=== PATIENT | female | born 1930 | race Caucasian/White ===

== ENCOUNTER 2016-08-21 13:25 | Inpatient (IN) | payer MEDICARE, OTHER ==
[2016-08-21] MEDS ORDERED: Oxycodone/Acetaminophen 5/325 mg Tab PO STA ×2 (14:08→18:53)
[2016-08-21] MEDS ORDERED: Oxycodone/Acetaminophen 5/325 mg Tab ONE ×2 (14:41→17:35)
[2016-08-21 14:49] LABS: VENOUS BLOOD GAS BASE EXCESS -2.8 mmol/L (0.0-2.0); VENOUS BLOOD GAS PCO2 37 mmHg (40-60); VENOUS BLOOD GAS PO2 32 mm/Hg (30-55); VENOUS BLOOD PH 7.38 (7.32-7.43)
[2016-08-21 14:50] LABS: BASO % 0.4 % (0.0-2.0); EOS % 0.4 % (0.0-4.0); LYMPH # 1.2 K/uL (1.0-4.3); LYMPH % 11.5 % (20.0-40.0); MEAN CELL VOLUME 79.3 fL (81.0-99.0); MEAN CORPUSCULAR HGB CONC 31.5 g/dL (33.0-37.0); MEAN PLATELET VOLUME 8.2 fL (7.2-11.7); MONO # 0.6 K/uL (0.0-0.8); MONO % 5.5 % (0.0-10.0); NEUT # 8.8 K/uL (1.8-7.0); NEUT % 82.2 % (50.0-75.0); RBC 5.2 Mil/uL (3.80-5.20); RED CELL DISTRIBUTION WIDTH 13.9 % (11.5-14.5); WHITE BLOOD COUNT 10.7 K/uL (4.8-10.8)
[2016-08-21] MEDS ORDERED: Potassium Chloride 20 mEq/15 ml LIQ UD PO STA (15:00)
[2016-08-21 15:03] LABS: PROTHROMBIN TIME 11.6 SECONDS (9.7-12.2)
[2016-08-21] MEDS ORDERED: Potassium Chloride 20 mEq ER Tab PO ONE (15:08)
[2016-08-21 15:13] LABS: ALBUMIN 4.2 g/dL (3.5-5.0)
[2016-08-21 15:16] LABS: AST/SGOT 23 U/L (14-36); GFR AFRICAN-AMERICAN > 60; GFR NON-AFRICAN AMERICAN > 60
[2016-08-21 15:17] LABS: ALT/SGPT 25 U/L (9-52); BLOOD UREA NITROGEN 15 mg/dL (7-17); CALCIUM 9.4 mg/dl (8.6-10.4); LIPASE 62 U/L (23-300)
[2016-08-21 15:41] LABS: ALB/GLOB RATIO 1.1 (1.0-2.1)
[2016-08-21 15:53] LABS: SQUAMOUS EPITHIAL < 1 /hpf (0-5); URINE BILIRUBIN NEGATIVE (NEGATIVE); URINE BLOOD NEGATIVE (NEGATIVE); URINE CLARITY Clear (Clear); URINE COLOR Yellow (YELLOW); URINE GLUCOSE (UA) NORMAL (Normal); URINE LEUKOCYTE ESTERASE NEG Leu/uL (Negative); URINE NITRATE NEGATIVE (NEGATIVE); URINE PROTEIN NEGATIVE (NEGATIVE); URINE UROBILINOGEN NORMAL mg/dL (0.2-1.0)
[2016-08-21] MEDS ORDERED: Iodixanol 320 MG/ML 100 ML BOTTLE IV ONE (16:19)
--- NOTE | 2016-08-21 17:03 | C.PDOC ---
History Of Present Illness Patient is an 86 year old female who presents to the ER with a complaint of worsening back pain radiating to the right leg; associated with vague abdominal pain. Patient report taking many unknown medications for her symptoms. Denies weakness, numbness or urinary symptoms. Time Seen by Provider: 08/21/16 13:45 Chief Complaint (Nursing): Back Pain History Per: Patient History/Exam Limitations: no limitations Onset/Duration Of Symptoms: Hrs Current Symptoms Are (Timing): Still Present Quality Of Discomfort: Unable To Describe Associated Symptoms: denies: Incontinence, New Weakness, New Numbness Recent travel outside of the [place]: No Past Medical History Reviewed: Historical Data, Nursing Documentation, Vital Signs Vital Signs: Last Vital Signs Temp 97.4 F L 08/21/16 19:18 Pulse 53 L 08/21/16 19:18 Resp 20 08/21/16 19:18 BP 169/82 H 08/21/16 19:18 Pulse Ox 98 08/21/16 20:13 - Medical History PMH: Arthritis, HTN Other PMH: spinal stenosis, pancreatic mass Surgical History: No Surg Hx Family History: States: Unknown Family Hx - Social History Hx Alcohol Use: No Hx Substance Use: No - Immunization History Hx Tetanus Toxoid Vaccination: No Hx Influenza Vaccination: Yes Hx Pneumococcal Vaccination: No Review Of Systems Gastrointestinal: Positive for: Abdominal Pain (Vague) Genitourinary: Negative for: Dysuria, Frequency, Incontinence, Hematuria Musculoskeletal: Positive for: Back Pain, Leg Pain (Right, radiating from back) Neurological: Negative for: Weakness, Numbness Physical Exam - Physical Exam Appears: Non-toxic, Other (Moderate Distress) Skin: Normal Color, Warm, Dry Head: Atraumatic, Normacephalic Oral Mucosa: Moist Chest: Symmetrical, No Tenderness Cardiovascular: Rhythm Regular, No Murmur Respiratory: Normal Breath Sounds, No Rales, No Rhonchi, No Wheezing Gastrointestinal/Abdominal: Soft, No Tenderness, Other (Obese) Neurological/Psych: Oriented x3, Normal Speech, Normal Cognition ED Course And Treatment - Laboratory Results Result Diagrams: 08/21/16 14:38 08/21/16 14:40 Lab Interpretation: Normal (ua neg) ECG: Interpreted By Me ECG Rhythm: Atrial Fibrillation ECG Interpretation: Normal Rate From EC O2 Sat by Pulse Oximetry: 98 (Room air) Pulse Ox Interpretation: Normal - Radiology CXR: Interpreted by Me CXR Interpretation: Yes: No Acute Disease, Other (? mild chf) - CT Scan/US CT abd/pel w/o contrast Other Rad Studies (CT/US): Read By Radiologist, Radiology Report Reviewed CT/US Interpretation: IMPRESSION: 1. No acute findings. No abdominal aortic aneurysm. 2.Advanced degenerative disc disease with multilevel foraminal stenosis in the lumbar spine. 3. Multiple pancreatic cysts. Differential diagnostic considerations include pseudocyst, simple. epithelial cysts, intra- papillary ductal neoplasm and mucinous cystadenoma. 4. A Dilated common bile duct and mild central intrahepatic ductal dilatation which may be related to. previous cholecystectomy. 5. Bilateral renal cysts. 6. Parastomal hernia and spigelian hernia. No findings to suggest strangulation. 7. 2 low-density liver lesions. One is a simple cyst and the smaller lesion in the left lobe is too small to. characterize fully. 8. Hepatomegaly. 9. Hiatal hernia Progress Note: CT abd/pel w/o contrast, EKG and CXR ordered. Trandate, percocet and potassium administered. Reevaluation Time: 21:04 Reassessment Condition: Improved - Physician Consult Information Outcome Of Conversation: 1700 and 2000: d/w Dr. Bullard to obs pt for back pain and ? pancreatic lesions, asks to adm to Dr. Samano 2000: d/w mickie Mackey to Med Surg Medical Decision Making Medical Decision Making: acute on chronic lower back pain c/w Spinal Stenosis and seen on CT Abd/Pelvis ? pancreatic lesions. H/o same. Disposition Doctor Will See Patient In The: Hospital Counseled Patient/Family Regarding: Studies Performed, Diagnosis - Disposition Disposition: HOSPITALIZED Disposition Time: 21:06 Condition: GOOD - Clinical Impression Clinical Impression: Back pain, Pancreatic abnormality - Scribe Statement The provider has reviewed the documentation as recorded by the Scribclemente Kiser All medical record entries made by the Gurdeepibclemente were at my direction and personally dictated by me. I have reviewed the chart and agree that the record accurately reflects my personal performance of the history, physical exam, medical decision making, and the department course for this patient. I have also personally directed, reviewed, and agree with the discharge instructions and disposition.
--- NOTE | 2016-08-21 17:11 | RAD ---
HISTORY: adm COMPARISON: No prior. FINDINGS: LUNGS: No active pulmonary disease. PLEURA: Probable small left pleural effusion. No evidence of right pleural effusion. No pneumothorax. CARDIOVASCULAR: Mild cardiomegaly. Mild congestive change. OSSEOUS STRUCTURES: No significant abnormalities. VISUALIZED UPPER ABDOMEN: Normal. OTHER FINDINGS: None. IMPRESSION: Small left pleural effusion. Mild cardiomegaly. No evidence of pulmonary edema.
--- NOTE | 2016-08-21 19:52 | CT ---
EXAM: CT Abdomen and Pelvis Without and With Intravenous Contrast CLINICAL HISTORY: 86 years old, female; Pain; Abdominal pain; Generalized; Additional info: Abd/back/r leg, ? mes isq vs aaa TECHNIQUE: Axial computed tomography images of the abdomen and pelvis without and with intravenous contrast. This CT exam was performed using one or more of the following dose reduction techniques: automated exposure control, adjustment of the mA and/or kV according to patient size, and/or use of iterative reconstruction technique. Coronal and sagittal reformatted images were created and reviewed. CONTRAST: 100 mL of visipaque administered intravenously. EXAM DATE/TIME: Exam ordered 08/21/2016 2:07 PM COMPARISON: No relevant prior studies available. FINDINGS: Lower thorax: Nodular thickening is noted along the left major fissure. The heart is enlarged. There is a small hiatal hernia. ABDOMEN: Liver: There is a coarse calcification adjacent to the liver capsule anteriorly on the right. A tiny punctate parenchymal calcification seen in the liver. There is a low density lesion noted within the posterior inferior segment of the right lobe of the liver measuring 1.4 cm with a density measurement of 3H. A 1 cm low density lesion is noted in the lateral segment of the left lobe of the liver beneath the liver capsule anteriorly. It is too small to characterize fully . The liver measures 19 cm in craniocaudal span. Gallbladder and bile ducts: Column bile duct measures 1.6 cm. No calcified stones. Pancreas: There is a cystic mass noted in the tail of the pancreas measuring 2.2 cm in maximum diameter. The cyst wall has calcifications. A cyst is also noted within the uncinate process of the pancreas measuring 2.7 cm in maximum diameter. A third cyst is noted in the neck of the pancreas anteriorly Spleen: Spleen measures 11 cm in craniocaudal span. Adrenals: Unremarkable. No mass. Kidneys and ureters: There are 3 low density lesions noted within the right kidney. The largest is in the lower pole measuring 5 cm with a density measurement of 9H. Second lesion is noted in the upper pole measuring 1.7 cm with a density measurement of 14 H. and a third lesion is noted in the midportion of the kidney measuring 1.4 cm in diameter with a density measurement of 0H. On the left there is an exophytic mass measuring 1.4 cm with a density measurement of 50 H. on the noncontrast portion of study. On the contrast portion the examination the density measurement is 50 5H. This is consistent with a benign cyst Stomach and bowel: There is an ostomy in the left upper quadrant with a parastomal hernia containing small bowel. There's been a partial colon resection in the left lower quadrant. No obstruction. No mucosal thickening. Appendix: No findings to suggest acute appendicitis. PELVIS: Bladder: Unremarkable. No mass. No stones. Reproductive: Unremarkable as visualized. ABDOMEN and PELVIS: Intraperitoneal space: Surgical clips are noted in the abdomen. Multiple surgical clips are noted in the upper abdomen. No free air. No significant fluid collection. Bones/joints: Degenerative changes are noted of the lumbar spine. There is fusion of L4 and L5. Foraminal stenosis is noted bilaterally from L1-L5. No acute fracture. No dislocation. Soft tissues: Mild hazy changes noted within the mesenteric fat at the root of the mesentery. Coarse calcification is noted within the subcutaneous fat of the left buttock. This could represent area of fat necrosis. There is a spigelian hernia noted on the left containing fat. Vasculature: Unremarkable. No abdominal aortic aneurysm. Lymph nodes: Unremarkable. No enlarged lymph nodes. IMPRESSION: 1. No acute findings. No abdominal aortic aneurysm. 2.Advanced degenerative disc disease with multilevel foraminal stenosis in the lumbar spine 3. Multiple pancreatic cysts. Differential diagnostic considerations include pseudocyst, simple epithelial cysts, intra-papillary ductal neoplasm and mucinous cystadenoma. 4. A Dilated common bile duct and mild central intrahepatic ductal dilatation which may be related to previous cholecystectomy. 5. Bilateral renal cysts. 6. Parastomal hernia and spigelian hernia. No findings to suggest strangulation. 7. 2 low-density liver lesions. One is a simple cyst and the smaller lesion in the left lobe is too small to characterize fully. 8. Hepatomegaly 9. Hiatal hernia
[2016-08-21] MEDS ORDERED: HYDROmorphone 1 mg/ml ISec IVP STA (20:40)
[2016-08-21] MEDS ORDERED: HYDROmorphone 1 mg/ml ISec ONE (20:54)
[2016-08-22] MEDS: HYDROmorphone 0.5 mg/0.5 ml ISec IVP PRN ×2 (01:21→07:48)
[2016-08-22] MEDS ORDERED: HYDROmorphone 0.5 mg/0.5 ml ISec IVP STA (09:33)
[2016-08-22] MEDS ORDERED: LUBIPROSTONE PO SCH (10:00)
[2016-08-22] MEDS: Pantoprazole 40 mg EC Tab PO SCH (10:02)
[2016-08-22] MEDS: Metoprolol Succinate 50 mg XL Tab PO SCH (10:02)
[2016-08-22] MEDS ORDERED: HYDROmorphone 1 mg/ml ISec IVP PRN (12:24)
[2016-08-22] MEDS: HYDROmorphone 1 mg/ml ISec IVP PRN ×2 (13:54→18:35)
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
[2016-08-23] MEDS: HYDROmorphone 1 mg/ml ISec IVP PRN ×2 (05:25→16:46)
[2016-08-23] MEDS: Pantoprazole 40 mg EC Tab PO SCH (10:41)
[2016-08-23] MEDS: Metoprolol Succinate 50 mg XL Tab PO SCH (10:45)
--- NOTE | 2016-08-23 14:47 | CP.PCM.CON ---
History of Present Illness - History of Present Illness History of Present Illness: CC: Pancreatic lesions HPI: GI consult requested on this 86 year old woman admitted for severe back pain, found to have numerous pancreatic cystic lesions on CT scan, and a dilated CBD. Patient underwent colostomy and colon resection in 2000 for colon cancer. She denies abdominal pain, changes in bowel habits via ostomy, or GI bleeding. She has pains in her bones, specifically the back and lower extremities. MRI of lumbar spine was performed but report not available at present. Patient has had prior cholecystectomy, but denies knowledge of any prior pancreatic or hepatobiliary disease. She gets yearly mammograms. Review of Systems - Constitutional Constitutional: absent: Anorexia, Chills, Fever, Weight Loss - EENT Eyes: absent: Change in Vision Ears: absent: Decreased Hearing Nose/Mouth/Throat: absent: Nasal Discharge - Breasts Breasts: absent: Mass, Pain - Cardiovascular Cardiovascular: absent: Chest Pain at Rest, Dyspnea - Respiratory Respiratory: absent: Cough, Dyspnea - Gastrointestinal Gastrointestinal: Constipation, Diarrhea. absent: Abdominal Pain, Dyspepsia, Dysphagia, Hematochezia, Melena, Nausea - Genitourinary Genitourinary: Dysuria. absent: Change in Urinary Stream - Menstruation Menstruation: Post Menopausal - Musculoskeletal Musculoskeletal: Arthralgias, Back Pain, Joint Swelling - Integumentary Integumentary: absent: Dry Skin, Jaundice - Neurological Neurological: absent: Headaches, Loss of Vision - Psychiatric Psychiatric: absent: Behavioral Changes, Change in Appetite Past Patient History - Infectious Disease Hx of Infectious Diseases: None - Tetanus Immunizations Tetanus Immunization: Unknown - Past Medical History & Family History Past Medical History?: No - Past Social History Smoking Status: Never Smoked Chewing Tobacco Use: No Cigar Use: No Alcohol: Occasional Drugs: Denies Home Situation {Lives}: With Family Domestic Violence: Negative - CARDIAC Hx Cardiac Disorders: Yes Hx Hypertension: Yes - PULMONARY Hx Respiratory Disorders: No - NEUROLOGICAL Hx Neurological Disorder: Yes - HEENT Hx HEENT Problems: No - RENAL Hx Chronic Kidney Disease: No - HEMATOLOGICAL/ONCOLOGICAL Hx Blood Disorders: No Hx Blood Transfusions: Yes - INTEGUMENTARY Hx Dermatological Problems: No - MUSCULOSKELETAL/RHEUMATOLOGICAL Hx Arthritis: Yes - GASTROINTESTINAL Hx Gastrointestinal Disorders: Yes Hx Bowel Surgery: Yes Hx Colostomy: Yes Hx Gall Bladder Disease: Yes Hx Gastritis: Yes - PSYCHIATRIC Hx Psychophysiologic Disorder: No Hx Substance Use: No - SURGICAL HISTORY Hx Surgeries: Yes Hx Breast Biopsy: Yes Hx Section: Yes ((?)) Hx Cholecystectomy: Yes Other/Comment: back surgery - ANESTHESIA Hx Anesthesia: Yes Hx Anesthesia Reactions: No Hx Malignant Hyperthermia: No Meds Allergies/Adverse Reactions: Allergies Allergy/AdvReac Type Severity Reaction Status Date / Time No Known Allergies Allergy Unverified 08/21/16 13:31 - Medications Medications: Current Medications Alprazolam (Xanax) 0.25 mg PO DAILY [facility] Stop: 08/29/16 10:01 Last Admin: 08/23/16 10:41 Dose: 0.25 mg Famotidine (Pepcid) 20 mg IVP Q12 [facility] Last Admin: 08/23/16 10:41 Dose: 20 mg Gabapentin (Neurontin) 600 mg PO TID [facility] Last Admin: 08/23/16 13:28 Dose: 600 mg Home Med (Lubiprostone [Amitiza]) 1 tab PO BID [facility] Home Med (Meloxicam [Mobic]) 7.5 mg PO DAILY PRN PRN Reason: Pain, moderate (4-7) Hydrochlorothiazide (Hydrodiuril) 25 mg PO DAILY [facility] Last Admin: 08/23/16 10:41 Dose: 25 mg Hydromorphone HCl (Dilaudid) 1 mg IVP Q4H PRN PRN Reason: Pain, severe (8-10) Last Admin: 08/23/16 05:25 Dose: 1 mg Losartan Potassium (Cozaar) 50 mg PO DAILY [facility] Last Admin: 08/23/16 10:40 Dose: 50 mg Metoprolol Succinate (Toprol Xl) 50 mg PO DAILY [facility] Last Admin: 08/23/16 10:45 Dose: 50 mg Montelukast Sodium (Singulair) 10 mg PO HS [facility] Last Admin: 08/22/16 22:09 Dose: 10 mg Pantoprazole Sodium (Protonix Ec Tab) 40 mg PO DAILY [facility] Last Admin: 08/23/16 10:41 Dose: 40 mg Tramadol HCl (Ultram) 50 mg PO Q8 PRN PRN Reason: Pain, moderate (4-7) Last Admin: 08/22/16 08:47 Dose: 50 mg Physical Exam - Constitutional Appears: Chronically Ill - Head Exam Head Exam: ATRAUMATIC, NORMOCEPHALIC - Eye Exam Eye Exam: absent: Scleral icterus - ENT Exam ENT Exam: Normal Exam - Neck Exam Neck exam: Positive for: Normal Inspection - Respiratory Exam Respiratory Exam: Clear to Auscultation Bilateral - Cardiovascular Exam Cardiovascular Exam: REGULAR RHYTHM - GI/Abdominal Exam GI & Abdominal Exam: Soft. absent: Mass, Tenderness Additional comments: obese. LLQ colostomy - Rectal Exam Rectal Exam: Deferred - Back Exam Back exam: NORMAL INSPECTION - Neurological Exam Neurological exam: Alert, Oriented x3 - Psychiatric Exam Psychiatric exam: Normal Affect, Normal Mood - Skin Skin Exam: Normal Color Results - Vital Signs Recent Vital Signs: Last Vital Signs Temp 98.5 F 08/23/16 08:00 Pulse 60 08/23/16 08:00 Resp 20 08/23/16 08:00 BP 110/65 08/23/16 08:00 Pulse Ox 96 08/23/16 08:00 - Labs Result Diagrams: 08/21/16 14:38 08/21/16 14:40 Labs: Laboratory Results - last 24 hr 08/22/16 08/22/16 08/22/16 17:14 17:14 17:14 ESR 18 Hemoglobin A1c 6.0 C-React Prot High Sens 1.83 Amylase Lipase Carcinoembryonic Ag CA 19-9 Antigen CA 125 Antigen TSH 3rd Generation 08/22/16 08/23/16 17:14 07:14 ESR Hemoglobin A1c C-React Prot High Sens Amylase 61 Lipase 53 Carcinoembryonic Ag 0.6 CA 19-9 Antigen 29.1 CA 125 Antigen 7.1 TSH 3rd Generation 0.45 L Assessment & Plan (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 neoplastic Rec: MRI of Pancreas (first check lumbar MRI). Cancer seromarkers Status: Acute (2) Back pain Assessment and Plan: R/O bone metastases Neurology consult pending. Lumbar MRI pending. Status: Acute Priority: High (3) Colon cancer Assessment and Plan: History of colostomy for Colon Cancer in 2000. Last Colonoscopy according to patient was in 2012. Status: Suspected (4) Bile duct abnormality Assessment and Plan: Dilated duct on CT scan, with normal LFTs. S/P Cholecystectomy Physiologic post cholecystectomy biliary dilatation vs. obstruction rec: MRCP Status: Acute - Date & Time Date: 08/23/16 Time: 15:09
--- NOTE | 2016-08-23 17:13 | CP.PCM.PN ---
Subjective - Date & Time of Evaluation Date of Evaluation: 08/23/16 Time of Evaluation: 17:07 - Subjective Subjective: INFECTIOUS DISEASE PROGRESS NOTE ALFONSO ALEX MD, FACP 3 BOARDS IN ID AND 1 IN INTERNAL MEDICINE [id number] 08/23/2016 CHART REVIEWED PT EXAMINED CASE DISCUSSED CLINICALLY STILL IN PAIN REQUIRING IV DILAUDID ORAL MEDS JUST DON'T CUT IT FOR THIS PLEASANT ELDERLY FEMALE, IN ACUTE PAIN DISTRESS W/U AND MANAGEMENT OF HER PAIN IS UNDERWAY, MRI OF SPINE DONE BUT NO RESULTS YET. WILL NEED MRI OF ABD WITH MRCP ALSO. LABS FOR MALIGNANCY NOT DIAGNOSTIC. ALSO WITH NORMAL AMYLASE AND LIPASE. KEEP HER COMFORTABLE WHILE MANAGMENT IS UNDERTAKEN. Objective - Vital Signs/Intake and Output Vital Signs (last 24 hours): Temp Pulse Resp BP Pulse Ox 98.5 F 60 20 110/65 96 08/23/16 08:00 08/23/16 08:00 08/23/16 08:00 08/23/16 08:00 08/23/16 08:00 Intake and Output: 08/23/16 08/23/16 06:59 18:59 Intake Total 300 800 Balance 300 800 - Medications Medications: Current Medications Alprazolam (Xanax) 0.25 mg PO DAILY [facility] Stop: 08/29/16 10:01 Last Admin: 08/23/16 10:41 Dose: 0.25 mg Famotidine (Pepcid) 20 mg IVP Q12 [facility] Last Admin: 08/23/16 10:41 Dose: 20 mg Gabapentin (Neurontin) 600 mg PO TID [facility] Last Admin: 08/23/16 13:28 Dose: 600 mg Home Med (Lubiprostone [Amitiza]) 1 tab PO BID [facility] Home Med (Meloxicam [Mobic]) 7.5 mg PO DAILY PRN PRN Reason: Pain, moderate (4-7) Hydrochlorothiazide (Hydrodiuril) 25 mg PO DAILY [facility] Last Admin: 08/23/16 10:41 Dose: 25 mg Hydromorphone HCl (Dilaudid) 1 mg IVP Q4H PRN PRN Reason: Pain, severe (8-10) Last Admin: 08/23/16 16:46 Dose: 1 mg Losartan Potassium (Cozaar) 50 mg PO DAILY [facility] Last Admin: 08/23/16 10:40 Dose: 50 mg Metoprolol Succinate (Toprol Xl) 50 mg PO DAILY [facility] Last Admin: 08/23/16 10:45 Dose: 50 mg Montelukast Sodium (Singulair) 10 mg PO HS [facility] Last Admin: 08/22/16 22:09 Dose: 10 mg Pantoprazole Sodium (Protonix Ec Tab) 40 mg PO DAILY [facility] Last Admin: 08/23/16 10:41 Dose: 40 mg Tramadol HCl (Ultram) 50 mg PO Q8 PRN PRN Reason: Pain, moderate (4-7) Last Admin: 08/23/16 15:01 Dose: 50 mg - Labs Labs: PT 11.6 SECONDS (9.7-12.2) 08/21/16 14:38 INR 1.0 08/21/16 14:38 APTT 31 SECONDS (21-34) 08/21/16 14:38 - Constitutional Appears: Non-toxic, In Acute Distress, Older Than Stated Age - Head Exam Head Exam: ATRAUMATIC, NORMAL INSPECTION - Eye Exam Eye Exam: Normal appearance - ENT Exam ENT Exam: Mucous Membranes Moist - Neck Exam Neck Exam: Normal Inspection - Respiratory Exam Respiratory Exam: Decreased Breath Sounds, NORMAL BREATHING PATTERN - Cardiovascular Exam Cardiovascular Exam: REGULAR RHYTHM Additional comments: SLOW ATRIAL FIBRILLATION - GI/Abdominal Exam GI & Abdominal Exam: Soft, Diminished Bowel Sounds, Normal Bowel Sounds. absent : Tenderness, Pulsatile Mass, Rebound - Rectal Exam Rectal Exam: Deferred - Extremities Exam Extremities Exam: absent: Calf Tenderness - Back Exam Back Exam: absent: rash noted - Neurological Exam Neurological Exam: Alert, Awake, Oriented x3 - Psychiatric Exam Psychiatric exam: Anxious, Normal Affect, Normal Mood - Skin Skin Exam: Intact, Warm Assessment and Plan (1) Back pain Status: Acute (2) Colon cancer Status: Suspected (3) Pancreatic abnormality Status: Acute (4) Lesion of pancreas Status: Acute
--- NOTE | 2016-08-23 17:56 | CP.PCM.CON ---
History of Present Illness - History of Present Illness History of Present Illness: 86 yo woman with history of colon cancer, admitted with severe low back pain, for the past few days, not better with po meds. Tumor markers and CAT scans essentially normal except for hepatomegaly, kidney cysts, pancreatic ? pseudocyts. Patient looks well, says pain meds are helpful, but pain relief does not last Past Patient History - Infectious Disease Hx of Infectious Diseases: None - Tetanus Immunizations Tetanus Immunization: Unknown - Past Medical History & Family History Past Medical History?: No - Past Social History Smoking Status: Never Smoked Chewing Tobacco Use: No Cigar Use: No Alcohol: Occasional Drugs: Denies Home Situation {Lives}: With Family Domestic Violence: Negative - CARDIAC Hx Cardiac Disorders: Yes Hx Hypertension: Yes - PULMONARY Hx Respiratory Disorders: No - NEUROLOGICAL Hx Neurological Disorder: Yes - HEENT Hx HEENT Problems: No - RENAL Hx Chronic Kidney Disease: No - HEMATOLOGICAL/ONCOLOGICAL Hx Blood Disorders: No Hx Blood Transfusions: Yes - INTEGUMENTARY Hx Dermatological Problems: No - MUSCULOSKELETAL/RHEUMATOLOGICAL Hx Arthritis: Yes - GASTROINTESTINAL Hx Gastrointestinal Disorders: Yes Hx Bowel Surgery: Yes Hx Colostomy: Yes Hx Gall Bladder Disease: Yes Hx Gastritis: Yes - PSYCHIATRIC Hx Psychophysiologic Disorder: No Hx Substance Use: No - SURGICAL HISTORY Hx Surgeries: Yes Hx Breast Biopsy: Yes Hx Section: Yes ((?)) Hx Cholecystectomy: Yes Other/Comment: back surgery - ANESTHESIA Hx Anesthesia: Yes Hx Anesthesia Reactions: No Hx Malignant Hyperthermia: No Meds Allergies/Adverse Reactions: Allergies Allergy/AdvReac Type Severity Reaction Status Date / Time No Known Allergies Allergy Unverified 08/21/16 13:31 - Medications Medications: Current Medications Alprazolam (Xanax) 0.25 mg PO DAILY [facility] Stop: 08/29/16 10:01 Last Admin: 08/23/16 10:41 Dose: 0.25 mg Famotidine (Pepcid) 20 mg IVP Q12 [facility] Last Admin: 08/23/16 10:41 Dose: 20 mg Gabapentin (Neurontin) 600 mg PO TID [facility] Last Admin: 08/23/16 13:28 Dose: 600 mg Home Med (Lubiprostone [Amitiza]) 1 tab PO BID [facility] Home Med (Meloxicam [Mobic]) 7.5 mg PO DAILY PRN PRN Reason: Pain, moderate (4-7) Hydrochlorothiazide (Hydrodiuril) 25 mg PO DAILY [facility] Last Admin: 08/23/16 10:41 Dose: 25 mg Hydromorphone HCl (Dilaudid) 1 mg IVP Q4H PRN PRN Reason: Pain, severe (8-10) Last Admin: 08/23/16 16:46 Dose: 1 mg Losartan Potassium (Cozaar) 50 mg PO DAILY [facility] Last Admin: 08/23/16 10:40 Dose: 50 mg Metoprolol Succinate (Toprol Xl) 50 mg PO DAILY [facility] Last Admin: 08/23/16 10:45 Dose: 50 mg Montelukast Sodium (Singulair) 10 mg PO HS [facility] Last Admin: 08/22/16 22:09 Dose: 10 mg Pantoprazole Sodium (Protonix Ec Tab) 40 mg PO DAILY [facility] Last Admin: 08/23/16 10:41 Dose: 40 mg Tramadol HCl (Ultram) 50 mg PO Q8 PRN PRN Reason: Pain, moderate (4-7) Last Admin: 08/23/16 15:01 Dose: 50 mg Results - Vital Signs Recent Vital Signs: Last Vital Signs Temp 98.2 F 08/23/16 15:00 Pulse 66 08/23/16 15:00 Resp 21 08/23/16 15:00 BP 148/64 08/23/16 15:00 Pulse Ox 96 08/23/16 15:00 - Labs Result Diagrams: 08/21/16 14:38 08/21/16 14:40 Labs: Laboratory Results - last 24 hr 08/22/16 08/22/16 08/22/16 17:14 17:14 17:14 ESR 18 Hemoglobin A1c 6.0 C-React Prot High Sens 1.83 Amylase Lipase Carcinoembryonic Ag CA 19-9 Antigen CA 125 Antigen TSH 3rd Generation 08/22/16 08/23/16 17:14 07:14 ESR Hemoglobin A1c C-React Prot High Sens Amylase 61 Lipase 53 Carcinoembryonic Ag 0.6 CA 19-9 Antigen 29.1 CA 125 Antigen 7.1 TSH 3rd Generation 0.45 L Assessment & Plan (1) Colon cancer Assessment and Plan: 86 yo woman with history of colon cancer, possible [employer] malignancy, admitted with back pain refractory to outpatient treatment. Await MRI report Status: Suspected
--- NOTE | 2016-08-23 17:57 | MRI ---
PROCEDURE: MRI of the lumbar spine dated 08/23/2016 HISTORY: Stenosis. TECHNIQUE: Multi echo multiplanar sequences were performed through the lumbar spine without the use of intravenous contrast. . FINDINGS: The current study reveals no acute compression fractures no retropulsed fragments. The current study reveals no acute compression fractures no retropulsed fragments. Vertebral bodies exhibit normal stature of. Fusion changes of the L4-L5 vertebral body segments of. Clinical correlation with history recommended. At the L 4 L5 level, there is small irregular osteophytic ridge complex that results in mild flattening of the ventral surface of the thecal sac more so on the right side. The facet joints also quite hypertrophic. There is bilateral lateral recess stenosis and minimal central canal narrowing. The proximal exit foramina appears slightly narrowed as well. At the L3-L4 level, there is disc desiccation however disc space height is relatively maintained. Small broad-based disc bulge ridge complex extends into the proximal inferior margins of both exit foramina. The facet joints are significantly hypertrophic particularly on the left side (which compress the posterolateral borders of the thecal sac) and result in with severe central canal and bilateral lateral recess stenosis with marked compression and crescentic shaped deformity of the thecal sac and intrathecal nerve roots of the cauda equina. The exit foramina are also quite stenotic. At the L2-L3 level, there is mild disc desiccation. Small broad-based disc bulge ridge complex. Significant hypertrophic facet joint changes with buckled ligamentum flavum which of compress the posterolateral borders of the thecal sac. Changes result in significant bilateral lateral recess and central canal stenosis. The exit foramina are narrowed bilaterally. At the at L1-L2 level, there is mild age related disc desiccation. Disc space height maintained. No disc herniation however some very minimal proximal bilateral foraminal disc bulging changes are noted. The facets also quite hypertrophic with buckled ligamentum flavum which the compress the posterolateral borders of the thecal sac. Changes result in moderate to significant bilateral lateral recess and central canal stenosis. The exit foramina appear narrowed on the left and marginal on the right. Conus terminates at approximately the T12-L1 level. Impression: There is fusion changes of the L4-L5 vertebral body segments. Multilevel degenerative spondylosis which most notably affect the facet joints with very severe central canal stenosis at L3-L4 and to a slightly lesser degree L2-L3 and L1-L2 levels as detailed above.
--- NOTE | 2016-08-23 18:57 | CP.PCM.PN ---
Subjective - Date & Time of Evaluation Date of Evaluation: 08/23/16 Time of Evaluation: 18:55 - Subjective Subjective: Patient is still having increasing pain in the lower back, radiating to the right leg. Patient underwent MRI today. Ecchymosis and the gluteal region noted. Denies any chest pain. No shortness of breath. Patient is having poor appetite now. Patient was seen by drier and pulverizer tender, and oncology. On examination: Vital signs reviewed Chest good air entry bilaterally regular heart sound nontender abdomen extended is no pedal edema [employer] alert awake oriented Patient's labs reviewed MRI of the lumbosacral spine showing no evidence of any acute fracture, chronic changes noted. Biliary dilatation noted. Suspected secondary to postoperative changes, may need MRCP. Assessment a condition: 85-year-old female with a history of significant spinal stenosis, complicated with the postoperative spine surgical pain. Worsening pain. Patient also having difficulty in moving around. Pain and worsening mobility. Biliary dilatation, unclear etiology. History of colon cancer, status post a colostomy. We'll continue the current treatment. Management. Physical therapy. We'll discuss with the market research consultant, and in the plan tomorrow, suggested physical therapy rehabilitation. Objective - Vital Signs/Intake and Output Vital Signs (last 24 hours): Temp Pulse Resp BP Pulse Ox 98.2 F 66 21 148/64 96 08/23/16 15:00 08/23/16 15:00 08/23/16 15:00 08/23/16 15:00 08/23/16 15:00 Intake and Output: 08/23/16 08/23/16 06:59 18:59 Intake Total 300 800 Balance 300 800 - Medications Medications: Current Medications Alprazolam (Xanax) 0.25 mg PO DAILY [facility] Stop: 08/29/16 10:01 Last Admin: 08/23/16 10:41 Dose: 0.25 mg Famotidine (Pepcid) 20 mg IVP Q12 [facility] Last Admin: 08/23/16 10:41 Dose: 20 mg Gabapentin (Neurontin) 600 mg PO TID [facility] Last Admin: 08/23/16 18:00 Dose: 600 mg Home Med (Lubiprostone [Amitiza]) 1 tab PO BID [facility] Home Med (Meloxicam [Mobic]) 7.5 mg PO DAILY PRN PRN Reason: Pain, moderate (4-7) Hydrochlorothiazide (Hydrodiuril) 25 mg PO DAILY [facility] Last Admin: 08/23/16 10:41 Dose: 25 mg Hydromorphone HCl (Dilaudid) 1 mg IVP Q4H PRN PRN Reason: Pain, severe (8-10) Last Admin: 08/23/16 16:46 Dose: 1 mg Losartan Potassium (Cozaar) 50 mg PO DAILY [facility] Last Admin: 08/23/16 10:40 Dose: 50 mg Metoprolol Succinate (Toprol Xl) 50 mg PO DAILY [facility] Last Admin: 08/23/16 10:45 Dose: 50 mg Montelukast Sodium (Singulair) 10 mg PO HS [facility] Last Admin: 08/22/16 22:09 Dose: 10 mg Pantoprazole Sodium (Protonix Ec Tab) 40 mg PO DAILY [facility] Last Admin: 08/23/16 10:41 Dose: 40 mg Tramadol HCl (Ultram) 50 mg PO Q8 PRN PRN Reason: Pain, moderate (4-7) Last Admin: 08/23/16 15:01 Dose: 50 mg - Labs Labs: PT 11.6 SECONDS (9.7-12.2) 08/21/16 14:38 INR 1.0 08/21/16 14:38 APTT 31 SECONDS (21-34) 08/21/16 14:38
[2016-08-24] MEDS: HYDROmorphone 1 mg/ml ISec IVP PRN ×5 (00:25→22:05)
[2016-08-24 01:07] VITALS: RESP 20
[2016-08-24 06:36] LABS: ALBUMIN 3.7 g/dL (3.5-5.0)
[2016-08-24 06:38] LABS: GFR AFRICAN-AMERICAN > 60; GFR NON-AFRICAN AMERICAN 53
[2016-08-24 06:39] LABS: ALB/GLOB RATIO 1.2 (1.0-2.1); ALT/SGPT 22 U/L (9-52); AST/SGOT 17 U/L (14-36); BLOOD UREA NITROGEN 26 mg/dL (7-17); CALCIUM 9.2 mg/dl (8.6-10.4); GAMMA GLUTAMYL TRANSPEPTIDASE 27 U/L (8-78)
--- NOTE | 2016-08-24 09:39 | CP.PCM.CON ---
History of Present Illness - History of Present Illness History of Present Illness: Consult Note for Dr. La Reason for consult: Atrial Fibrillation 86 y/o F with PMH of colon cancer s/p colostomy and chronic lower back pain presented to the ED on 08/21/16 for worsening back pain. Pt states she has had progressively worsening back pain for the past 2 weeks. The pain radiates down her legs and makes walking difficult for patient, though she is still able to walk. Pt states she hurt her lower back in the past and her chronic back pain may be attributed to that. Pt denies any recent trauma or falls that affected her acute state of walking and pain. On admission, pt received abdomen/pelvis CT which showed multiple pancreatic and liver lesions, along with common bile duct dilatation indicating possible metastasis and lumbar MRI which showed multilevel degenerative spondylolysis. Pt states she has been compliant with her medication. Today, pt states she still has leg pain and difficulty walking. Pt states she has never had any cardiac pathology in the past. Denies CP, SOB, N /V/D, fevers, chills, syncope, dizziness. PMH: Colon cancer, chronic low back pain Surgical Hx: Colostomy, cholecystectomy, Back surgery Social Hx: Denies alcohol, tobacco, or illicit drug use Medication: See MAR Allergies: NKDA Review of Systems - Constitutional Constitutional: Fatigue. absent: Fever - EENT Eyes: absent: Blurred Vision, Change in Vision - Cardiovascular Cardiovascular: Irregular Heart Rhythm. absent: Chest Pain - Respiratory Respiratory: Dyspnea. absent: Cough - Gastrointestinal Gastrointestinal: Abdominal Pain. absent: Diarrhea, Vomiting - Genitourinary Genitourinary: absent: Dysuria, Hematuria - Neurological Neurological: Numbness. absent: Syncope, Tingling Past Patient History - Infectious Disease Hx of Infectious Diseases: None - Tetanus Immunizations Tetanus Immunization: Unknown - Past Medical History & Family History Past Medical History?: No - Past Social History Smoking Status: Never Smoked Chewing Tobacco Use: No Cigar Use: No Alcohol: Occasional Drugs: Denies Home Situation {Lives}: With Family Domestic Violence: Negative - CARDIAC Hx Cardiac Disorders: Yes Hx Hypertension: Yes - PULMONARY Hx Respiratory Disorders: No - NEUROLOGICAL Hx Neurological Disorder: Yes - HEENT Hx HEENT Problems: No - RENAL Hx Chronic Kidney Disease: No - HEMATOLOGICAL/ONCOLOGICAL Hx Blood Disorders: No Hx Blood Transfusions: Yes - INTEGUMENTARY Hx Dermatological Problems: No - MUSCULOSKELETAL/RHEUMATOLOGICAL Hx Musculoskeletal Disorders: Yes Hx Arthritis: Yes Hx Back Pain: Yes Hx Degenerative Joint Disease: Yes Hx Falls: Yes Hx Herniated Disk: Yes Hx Osteoarthritis: Yes Hx Unsteady Gait: Yes - GASTROINTESTINAL Hx Gastrointestinal Disorders: Yes Hx Bowel Surgery: Yes Hx Colostomy: Yes Hx Gall Bladder Disease: Yes Hx Gastritis: Yes - PSYCHIATRIC Hx Psychophysiologic Disorder: No Hx Substance Use: No - SURGICAL HISTORY Hx Surgeries: Yes Hx Section: Yes ((?)) Other/Comment: back surgery - ANESTHESIA Hx Anesthesia: Yes Hx Anesthesia Reactions: No Hx Malignant Hyperthermia: No Meds Allergies/Adverse Reactions: Allergies Allergy/AdvReac Type Severity Reaction Status Date / Time No Known Allergies Allergy Unverified 08/21/16 13:31 - Medications Medications: Current Medications Alprazolam (Xanax) 0.25 mg PO DAILY [facility] Stop: 08/29/16 10:01 Last Admin: 08/23/16 10:41 Dose: 0.25 mg Enoxaparin Sodium (Lovenox) 40 mg SC DAILY [facility] Famotidine (Pepcid) 20 mg IVP Q12 [facility] Last Admin: 08/23/16 21:32 Dose: 20 mg Gabapentin (Neurontin) 600 mg PO TID [facility] Last Admin: 08/23/16 18:00 Dose: 600 mg Home Med (Lubiprostone [Amitiza]) 1 tab PO BID [facility] Home Med (Meloxicam [Mobic]) 7.5 mg PO DAILY PRN PRN Reason: Pain, moderate (4-7) Hydrochlorothiazide (Hydrodiuril) 25 mg PO DAILY [facility] Last Admin: 08/23/16 10:41 Dose: 25 mg Hydromorphone HCl (Dilaudid) 1 mg IVP Q4H PRN PRN Reason: Pain, severe (8-10) Last Admin: 08/24/16 05:35 Dose: 1 mg Losartan Potassium (Cozaar) 50 mg PO DAILY [facility] Last Admin: 08/23/16 10:40 Dose: 50 mg Metoprolol Succinate (Toprol Xl) 50 mg PO DAILY [facility] Last Admin: 08/23/16 10:45 Dose: 50 mg Montelukast Sodium (Singulair) 10 mg PO HS [facility] Last Admin: 08/23/16 21:32 Dose: 10 mg Pantoprazole Sodium (Protonix Ec Tab) 40 mg PO DAILY [facility] Last Admin: 08/23/16 10:41 Dose: 40 mg Tramadol HCl (Ultram) 50 mg PO Q8 PRN PRN Reason: Pain, moderate (4-7) Last Admin: 08/23/16 15:01 Dose: 50 mg Physical Exam - Constitutional Appears: Non-toxic, No Acute Distress - Head Exam Head Exam: ATRAUMATIC, NORMAL INSPECTION - ENT Exam ENT Exam: Mucous Membranes Dry - Respiratory Exam Respiratory Exam: Decreased Breath Sounds, NORMAL BREATHING PATTERN - Cardiovascular Exam Cardiovascular Exam: Irregular Rhythm, +S1, +S2 - GI/Abdominal Exam GI & Abdominal Exam: Normal Bowel Sounds, Soft. absent: Tenderness - Extremities Exam Extremities exam: Positive for: pedal edema, tenderness (Along right lateral hip ). Negative for: calf tenderness - Neurological Exam Neurological exam: Alert, Oriented x3 - Skin Skin Exam: Intact, Normal Color, Warm Results - Vital Signs Recent Vital Signs: Last Vital Signs Temp 98.2 F 08/24/16 07:50 Pulse 64 08/24/16 07:50 Resp 20 08/24/16 07:50 BP 156/78 H 08/24/16 07:50 Pulse Ox 96 08/24/16 07:50 - Labs Result Diagrams: 08/21/16 14:38 08/24/16 06:23 Labs: Laboratory Results - last 24 hr 08/24/16 06:23 Sodium 138 Potassium 4.1 Chloride 97 L Carbon Dioxide 30 Anion Gap 15 BUN 26 H Creatinine 1.0 Est GFR ( Amer) > 60 Est GFR (Non-Af Amer) 53 Random Glucose 101 Calcium 9.2 Total Bilirubin 1.2 GGT 27 AST 17 ALT 22 Alkaline Phosphatase 58 Total Protein 6.9 Albumin 3.7 Globulin 3.2 Albumin/Globulin Ratio 1.2 Carcinoembryonic Ag 0.6 CA 19-9 Antigen 32.1 Assessment & Plan (1) Atrial fibrillation Assessment and Plan: EKG on admission shows atrial fibrillation Currently in A-fib, but rate controlled Continue current medical regimen with Toprol Status: Acute
[2016-08-24] MEDS: Enoxaparin 40 mg Syringe SC SCH (09:40)
[2016-08-24] MEDS: Pantoprazole 40 mg EC Tab PO SCH (09:40)
[2016-08-24] MEDS: Metoprolol Succinate 50 mg XL Tab PO SCH (11:58)
--- NOTE | 2016-08-24 12:44 | CP.PCM.PN ---
Subjective - Date & Time of Evaluation Date of Evaluation: 08/24/16 Time of Evaluation: 08:40 - Subjective Subjective: F/U panc cysts Reports back pain and leg pain Denies diarrhea, RB, melena, fever, chills, ORTEZ, cough, hemoptysis Objective - Vital Signs/Intake and Output Vital Signs (last 24 hours): Temp Pulse Resp BP Pulse Ox 98.2 F 64 20 156/78 H 96 08/24/16 07:50 08/24/16 07:50 08/24/16 07:50 08/24/16 07:50 08/24/16 07:50 Intake and Output: 08/24/16 08/24/16 06:59 18:59 Intake Total 740 Balance 740 - Medications Medications: Current Medications Alprazolam (Xanax) 0.25 mg PO DAILY [facility] Stop: 08/29/16 10:01 Last Admin: 08/24/16 09:40 Dose: 0.25 mg Enoxaparin Sodium (Lovenox) 40 mg SC DAILY [facility] Last Admin: 08/24/16 09:40 Dose: 40 mg Famotidine (Pepcid) 20 mg IVP Q12 [facility] Last Admin: 08/24/16 11:57 Dose: 20 mg Gabapentin (Neurontin) 600 mg PO TID [facility] Last Admin: 08/24/16 09:40 Dose: 600 mg Home Med (Lubiprostone [Amitiza]) 1 tab PO BID [facility] Home Med (Meloxicam [Mobic]) 7.5 mg PO DAILY PRN PRN Reason: Pain, moderate (4-7) Hydrochlorothiazide (Hydrodiuril) 25 mg PO DAILY [facility] Last Admin: 08/24/16 09:40 Dose: 25 mg Hydromorphone HCl (Dilaudid) 1 mg IVP Q4H PRN PRN Reason: Pain, severe (8-10) Last Admin: 08/24/16 09:35 Dose: 1 mg Losartan Potassium (Cozaar) 50 mg PO DAILY [facility] Last Admin: 08/24/16 09:40 Dose: 50 mg Metoprolol Succinate (Toprol Xl) 50 mg PO DAILY [facility] Last Admin: 08/24/16 11:58 Dose: 50 mg Montelukast Sodium (Singulair) 10 mg PO HS [facility] Last Admin: 08/23/16 21:32 Dose: 10 mg Pantoprazole Sodium (Protonix Ec Tab) 40 mg PO DAILY [facility] Last Admin: 08/24/16 09:40 Dose: 40 mg Tramadol HCl (Ultram) 50 mg PO Q8 PRN PRN Reason: Pain, moderate (4-7) Last Admin: 08/23/16 15:01 Dose: 50 mg - Labs Labs: 08/24/16 06:23 PT 11.6 SECONDS (9.7-12.2) 08/21/16 14:38 INR 1.0 08/21/16 14:38 APTT 31 SECONDS (21-34) 08/21/16 14:38 - Constitutional Appears: Non-toxic - Neck Exam Neck Exam: absent: Tenderness - Respiratory Exam Respiratory Exam: Clear to Ausculation Bilateral - Cardiovascular Exam Cardiovascular Exam: RRR - GI/Abdominal Exam GI & Abdominal Exam: Soft, Normal Bowel Sounds. absent: Tenderness - Neurological Exam Neurological Exam: Alert, Oriented x3 Assessment and Plan (1) Atrial fibrillation Status: Acute (2) Bile duct abnormality Status: Acute (3) Pancreatic cyst Assessment & Plan: Pt reports had MRI and wants to check that report to see if can see pancreas, before doing anothe MRI. WIll check that MRI. Then consider MRI/MRCP. Status: Acute (4) Colon cancer Status: Suspected
--- NOTE | 2016-08-24 19:22 | CP.PCM.PN ---
Subjective - Date & Time of Evaluation Date of Evaluation: 08/24/16 Time of Evaluation: 15:30 - Subjective Subjective: CHANGE IN MENTAL STATUS Objective - Vital Signs/Intake and Output Vital Signs (last 24 hours): Temp Pulse Resp BP Pulse Ox 98.0 F 60 20 162/79 H 97 08/24/16 15:00 08/24/16 15:00 08/24/16 15:00 08/24/16 15:00 08/24/16 15:00 - Medications Medications: Current Medications Alprazolam (Xanax) 0.25 mg PO DAILY [facility] Stop: 08/29/16 10:01 Last Admin: 08/24/16 09:40 Dose: 0.25 mg Enoxaparin Sodium (Lovenox) 40 mg SC DAILY [facility] Last Admin: 08/24/16 09:40 Dose: 40 mg Famotidine (Pepcid) 20 mg IVP Q12 [facility] Last Admin: 08/24/16 11:57 Dose: 20 mg Gabapentin (Neurontin) 600 mg PO TID [facility] Last Admin: 08/24/16 17:04 Dose: 600 mg Home Med (Lubiprostone [Amitiza]) 1 tab PO BID [facility] Home Med (Meloxicam [Mobic]) 7.5 mg PO DAILY PRN PRN Reason: Pain, moderate (4-7) Hydrochlorothiazide (Hydrodiuril) 25 mg PO DAILY [facility] Last Admin: 08/24/16 09:40 Dose: 25 mg Hydromorphone HCl (Dilaudid) 1 mg IVP Q4H PRN PRN Reason: Pain, severe (8-10) Last Admin: 08/24/16 16:27 Dose: 1 mg Losartan Potassium (Cozaar) 50 mg PO DAILY [facility] Last Admin: 08/24/16 09:40 Dose: 50 mg Metoprolol Succinate (Toprol Xl) 50 mg PO DAILY [facility] Last Admin: 08/24/16 11:58 Dose: 50 mg Montelukast Sodium (Singulair) 10 mg PO HS [facility] Last Admin: 08/23/16 21:32 Dose: 10 mg Pantoprazole Sodium (Protonix Ec Tab) 40 mg PO DAILY [facility] Last Admin: 08/24/16 09:40 Dose: 40 mg Tramadol HCl (Ultram) 50 mg PO Q8 PRN PRN Reason: Pain, moderate (4-7) Last Admin: 08/23/16 15:01 Dose: 50 mg - Labs Labs: 08/24/16 06:23 PT 11.6 SECONDS (9.7-12.2) 08/21/16 14:38 INR 1.0 08/21/16 14:38 APTT 31 SECONDS (21-34) 08/21/16 14:38 Assessment and Plan - Assessment and Plan (Free Text) Assessment: ENCEPHALOPATHY Plan: IF FTA REACTIVE SHE CAN BE TREATED EMPIRICALLY WITH PCN PER ID. NO LP IS RECOMMENDED DUE TO HER AGE AND SHE IS NOT SEXUALLY ACTIVE
--- NOTE | 2016-08-24 21:21 | CP.PCM.PN ---
Subjective - Date & Time of Evaluation Date of Evaluation: 08/24/16 Time of Evaluation: 21:16 - Subjective Subjective: INFECTIOUS DISEASE PROGRESS NOTE ALFONSO ALEX MD, FACP 3T 353-B 08/24/2016 CLINICALLY STILL IN PAIN. MRI SHOWS SEVERE CANAL STENOSIS AWAITING NEED FOR MRI/MRCP OF ABDOMEN. LABS STABLE. Objective - Vital Signs/Intake and Output Vital Signs (last 24 hours): Temp Pulse Resp BP Pulse Ox 98.0 F 60 20 162/79 H 97 08/24/16 15:00 08/24/16 15:00 08/24/16 15:00 08/24/16 15:00 08/24/16 15:00 - Medications Medications: Current Medications Alprazolam (Xanax) 0.25 mg PO DAILY [facility] Stop: 08/29/16 10:01 Last Admin: 08/24/16 09:40 Dose: 0.25 mg Enoxaparin Sodium (Lovenox) 40 mg SC DAILY [facility] Last Admin: 08/24/16 09:40 Dose: 40 mg Famotidine (Pepcid) 20 mg IVP Q12 [facility] Last Admin: 08/24/16 21:10 Dose: 20 mg Gabapentin (Neurontin) 600 mg PO TID [facility] Last Admin: 08/24/16 17:04 Dose: 600 mg Home Med (Lubiprostone [Amitiza]) 1 tab PO BID [facility] Home Med (Meloxicam [Mobic]) 7.5 mg PO DAILY PRN PRN Reason: Pain, moderate (4-7) Hydrochlorothiazide (Hydrodiuril) 25 mg PO DAILY [facility] Last Admin: 08/24/16 09:40 Dose: 25 mg Hydromorphone HCl (Dilaudid) 1 mg IVP Q4H PRN PRN Reason: Pain, severe (8-10) Last Admin: 08/24/16 16:27 Dose: 1 mg Losartan Potassium (Cozaar) 50 mg PO DAILY [facility] Last Admin: 08/24/16 09:40 Dose: 50 mg Metoprolol Succinate (Toprol Xl) 50 mg PO DAILY [facility] Last Admin: 08/24/16 11:58 Dose: 50 mg Montelukast Sodium (Singulair) 10 mg PO HS [facility] Last Admin: 08/24/16 21:10 Dose: 10 mg Pantoprazole Sodium (Protonix Ec Tab) 40 mg PO DAILY [facility] Last Admin: 08/24/16 09:40 Dose: 40 mg Tramadol HCl (Ultram) 50 mg PO Q8 PRN PRN Reason: Pain, moderate (4-7) Last Admin: 08/23/16 15:01 Dose: 50 mg - Labs Labs: 08/24/16 06:23 PT 11.6 SECONDS (9.7-12.2) 08/21/16 14:38 INR 1.0 08/21/16 14:38 APTT 31 SECONDS (21-34) 08/21/16 14:38 - Constitutional Appears: Non-toxic, No Acute Distress - Head Exam Head Exam: NORMAL INSPECTION - Eye Exam Eye Exam: Normal appearance - ENT Exam ENT Exam: Mucous Membranes Moist - Neck Exam Neck Exam: Normal Inspection - Respiratory Exam Respiratory Exam: Decreased Breath Sounds, NORMAL BREATHING PATTERN - Cardiovascular Exam Cardiovascular Exam: REGULAR RHYTHM - GI/Abdominal Exam GI & Abdominal Exam: Soft, Normal Bowel Sounds. absent: Tenderness - Rectal Exam Rectal Exam: Deferred - Extremities Exam Extremities Exam: Normal Inspection. absent: Tenderness - Neurological Exam Neurological Exam: Alert, Awake - Psychiatric Exam Psychiatric exam: Anxious - Skin Skin Exam: Warm Assessment and Plan (1) Back pain Status: Acute (2) Colon cancer Status: Suspected (3) Pancreatic abnormality Status: Acute (4) Lesion of pancreas Status: Acute
[2016-08-25] MEDS: HYDROmorphone 1 mg/ml ISec IVP PRN ×4 (02:00→20:53)
--- NOTE | 2016-08-25 08:55 | CP.PCM.PN ---
Subjective - Date & Time of Evaluation Date of Evaluation: 08/25/16 Time of Evaluation: 08:51 - Subjective Subjective: Progress note for Dr. La Pt seen and examined at bedside. Pt states she is still in pain and having trouble walking. No acute events overnight as per nursing. Heart rate stable overnight. Denies CP, SOB, N/V/D. Objective - Vital Signs/Intake and Output Vital Signs (last 24 hours): Temp Pulse Resp BP Pulse Ox 98.5 F 75 20 100/66 96 08/25/16 08:00 08/25/16 08:00 08/25/16 08:00 08/25/16 08:00 08/25/16 08:00 Intake and Output: 08/25/16 08/25/16 06:59 18:59 Intake Total 370 Balance 370 - Medications Medications: Current Medications Alprazolam (Xanax) 0.25 mg PO DAILY [facility] Stop: 08/29/16 10:01 Last Admin: 08/24/16 09:40 Dose: 0.25 mg Enoxaparin Sodium (Lovenox) 40 mg SC DAILY [facility] Last Admin: 08/24/16 09:40 Dose: 40 mg Famotidine (Pepcid) 20 mg IVP Q12 [facility] Last Admin: 08/24/16 21:10 Dose: 20 mg Gabapentin (Neurontin) 600 mg PO TID [facility] Last Admin: 08/24/16 17:04 Dose: 600 mg Home Med (Lubiprostone [Amitiza]) 1 tab PO BID [facility] Home Med (Meloxicam [Mobic]) 7.5 mg PO DAILY PRN PRN Reason: Pain, moderate (4-7) Hydrochlorothiazide (Hydrodiuril) 25 mg PO DAILY [facility] Last Admin: 08/24/16 09:40 Dose: 25 mg Hydromorphone HCl (Dilaudid) 1 mg IVP Q4H PRN PRN Reason: Pain, severe (8-10) Last Admin: 08/25/16 06:08 Dose: 1 mg Losartan Potassium (Cozaar) 50 mg PO DAILY [facility] Last Admin: 08/24/16 09:40 Dose: 50 mg Metoprolol Succinate (Toprol Xl) 50 mg PO DAILY [facility] Last Admin: 08/24/16 11:58 Dose: 50 mg Montelukast Sodium (Singulair) 10 mg PO HS [facility] Last Admin: 08/24/16 21:10 Dose: 10 mg Pantoprazole Sodium (Protonix Ec Tab) 40 mg PO DAILY [facility] Last Admin: 08/24/16 09:40 Dose: 40 mg Tramadol HCl (Ultram) 50 mg PO Q8 PRN PRN Reason: Pain, moderate (4-7) Last Admin: 08/23/16 15:01 Dose: 50 mg - Labs Labs: 08/24/16 06:23 PT 11.6 SECONDS (9.7-12.2) 08/21/16 14:38 INR 1.0 08/21/16 14:38 APTT 31 SECONDS (21-34) 08/21/16 14:38 - Constitutional Appears: Non-toxic, No Acute Distress - Head Exam Head Exam: ATRAUMATIC, NORMAL INSPECTION, NORMOCEPHALIC - ENT Exam ENT Exam: Mucous Membranes Moist - Respiratory Exam Respiratory Exam: Clear to Ausculation Bilateral, NORMAL BREATHING PATTERN - Cardiovascular Exam Cardiovascular Exam: Irregular Rhythm, +S1, +S2 - GI/Abdominal Exam GI & Abdominal Exam: Soft, Normal Bowel Sounds. absent: Tenderness - Extremities Exam Extremities Exam: Pedal Edema. absent: Calf Tenderness - Neurological Exam Neurological Exam: Alert, Awake, Oriented x3 - Skin Skin Exam: Intact, Normal Color, Warm Assessment and Plan (1) Atrial fibrillation Assessment & Plan: Rate controlled in A-fib Continue current medical regimen Status: Acute
[2016-08-25] MEDS: Enoxaparin 40 mg Syringe SC SCH (10:11)
--- NOTE | 2016-08-25 11:05 | CP.PCM.PN ---
Subjective - Date & Time of Evaluation Date of Evaluation: 08/25/16 Time of Evaluation: 11:01 - Subjective Subjective: CC: Follow up pancreas lesions Denies abdominal pain, N/V, change in bowel habits. + back pain. Needs anelgesics. Objective - Vital Signs/Intake and Output Vital Signs (last 24 hours): Temp Pulse Resp BP Pulse Ox 98.5 F 75 20 100/66 96 08/25/16 08:00 08/25/16 08:00 08/25/16 08:00 08/25/16 08:00 08/25/16 08:00 Intake and Output: 08/25/16 08/25/16 06:59 18:59 Intake Total 370 Balance 370 - Medications Medications: Current Medications Alprazolam (Xanax) 0.25 mg PO DAILY [facility] Stop: 08/29/16 10:01 Last Admin: 08/25/16 10:12 Dose: 0.25 mg Enoxaparin Sodium (Lovenox) 40 mg SC DAILY [facility] Last Admin: 08/25/16 10:11 Dose: 40 mg Famotidine (Pepcid) 20 mg IVP Q12 [facility] Last Admin: 08/25/16 10:13 Dose: 20 mg Gabapentin (Neurontin) 600 mg PO TID [facility] Last Admin: 08/25/16 10:13 Dose: 600 mg Home Med (Lubiprostone [Amitiza]) 1 tab PO BID [facility] Home Med (Meloxicam [Mobic]) 7.5 mg PO DAILY PRN PRN Reason: Pain, moderate (4-7) Hydrochlorothiazide (Hydrodiuril) 25 mg PO DAILY [facility] Last Admin: 08/25/16 10:12 Dose: 25 mg Hydromorphone HCl (Dilaudid) 1 mg IVP Q4H PRN PRN Reason: Pain, severe (8-10) Last Admin: 08/25/16 06:08 Dose: 1 mg Losartan Potassium (Cozaar) 50 mg PO DAILY [facility] Last Admin: 08/25/16 10:13 Dose: 50 mg Metoprolol Succinate (Toprol Xl) 50 mg PO DAILY [facility] Last Admin: 08/24/16 11:58 Dose: 50 mg Montelukast Sodium (Singulair) 10 mg PO HS [facility] Last Admin: 08/24/16 21:10 Dose: 10 mg Pantoprazole Sodium (Protonix Ec Tab) 40 mg PO DAILY [facility] Last Admin: 08/24/16 09:40 Dose: 40 mg Tramadol HCl (Ultram) 50 mg PO Q8 PRN PRN Reason: Pain, moderate (4-7) Last Admin: 08/25/16 10:13 Dose: 50 mg - Labs Labs: 08/24/16 06:23 PT 11.6 SECONDS (9.7-12.2) 08/21/16 14:38 INR 1.0 08/21/16 14:38 APTT 31 SECONDS (21-34) 08/21/16 14:38 - Constitutional Appears: No Acute Distress - Head Exam Head Exam: NORMOCEPHALIC - Eye Exam Eye Exam: absent: Scleral icterus - Respiratory Exam Respiratory Exam: NORMAL BREATHING PATTERN - Cardiovascular Exam Cardiovascular Exam: REGULAR RHYTHM - GI/Abdominal Exam GI & Abdominal Exam: Soft. absent: Tenderness, Mass Assessment and Plan (1) Pancreatic cyst Assessment & Plan: Will order evaluation via MRI Cencer seromarkers normal Status: Acute (2) Back pain Assessment & Plan: Managed by PCP Status: Acute (3) Colon cancer Assessment & Plan: Remote. Resected. Oncolgy following. Cancer seromarkers normal. Status: Suspected (4) Bile duct abnormality Assessment & Plan: Dilated duct. Although possible, too dilated too attribute to post cholecystectomy state. Will therefore check MRCP. No evidence of biliary obstruction noted on labwork. Status: Acute
[2016-08-25] MEDS: Pantoprazole 40 mg EC Tab PO SCH (13:42)
[2016-08-25] MEDS: Metoprolol Succinate 50 mg XL Tab PO SCH (13:43)
[2016-08-26] MEDS: HYDROmorphone 1 mg/ml ISec IVP PRN ×4 (01:00→20:07)
--- NOTE | 2016-08-26 01:32 | CP.PCM.PN ---
Subjective - Date & Time of Evaluation Date of Evaluation: 08/25/16 Time of Evaluation: 19:00 - Subjective Subjective: No abdominal pain, no nausea vomiting. But having some difficulty in going to the bathroom. Severe back pain. Currently on dilaudid Vital signs stable. Chest good air entry, bilaterally. No rales noted Abdomen soft, nontender. Assessment and recommendation: 85-year-old female with history of colostomy, secondary to colon cancer. Obesity, atrial fibrillation. Pancreatic pseudocyst. Admitted with severe abdominal pain, severe lower back pain. Objective - Vital Signs/Intake and Output Vital Signs (last 24 hours): Temp Pulse Resp BP Pulse Ox 98.6 F 61 20 101/67 98 08/25/16 17:33 08/25/16 17:33 08/25/16 17:33 08/25/16 17:33 08/25/16 17:33 Intake and Output: 08/25/16 08/26/16 18:59 06:59 Intake Total 300 Balance 300 - Medications Medications: Current Medications Alprazolam (Xanax) 0.25 mg PO DAILY [facility] Stop: 08/29/16 10:01 Last Admin: 08/25/16 10:12 Dose: 0.25 mg Enoxaparin Sodium (Lovenox) 40 mg SC DAILY [facility] Last Admin: 08/25/16 10:11 Dose: 40 mg Famotidine (Pepcid) 20 mg IVP Q12 [facility] Last Admin: 08/25/16 21:30 Dose: 20 mg Gabapentin (Neurontin) 600 mg PO TID [facility] Last Admin: 08/25/16 17:15 Dose: 600 mg Home Med (Lubiprostone [Amitiza]) 1 tab PO BID [facility] Home Med (Meloxicam [Mobic]) 7.5 mg PO DAILY PRN PRN Reason: Pain, moderate (4-7) Hydrochlorothiazide (Hydrodiuril) 25 mg PO DAILY [facility] Last Admin: 08/25/16 10:12 Dose: 25 mg Hydromorphone HCl (Dilaudid) 1 mg IVP Q4H PRN PRN Reason: Pain, severe (8-10) Last Admin: 08/26/16 01:00 Dose: 1 mg Losartan Potassium (Cozaar) 50 mg PO DAILY [facility] Last Admin: 08/25/16 10:13 Dose: 50 mg Metoprolol Succinate (Toprol Xl) 50 mg PO DAILY [facility] Last Admin: 08/25/16 13:43 Dose: 50 mg Montelukast Sodium (Singulair) 10 mg PO HS [facility] Last Admin: 08/25/16 21:30 Dose: 10 mg Pantoprazole Sodium (Protonix Ec Tab) 40 mg PO DAILY [facility] Last Admin: 08/25/16 13:42 Dose: 40 mg Tramadol HCl (Ultram) 50 mg PO Q8 PRN PRN Reason: Pain, moderate (4-7) Last Admin: 08/25/16 10:13 Dose: 50 mg - Labs Labs: 08/24/16 06:23 PT 11.6 SECONDS (9.7-12.2) 08/21/16 14:38 INR 1.0 08/21/16 14:38 APTT 31 SECONDS (21-34) 08/21/16 14:38
--- NOTE | 2016-08-26 01:32 | CP.PCM.PN ---
Subjective - Date & Time of Evaluation Date of Evaluation: 08/26/16 Time of Evaluation: 01:32 - Subjective Subjective: Patient still continues to have the lower back pain. She's also having abdominal pain. No nausea noted. Poorly taking any food. Vital signs stable. Clinical examination is unremarkable otherwise. Awake and responding. But somewhat easily sleepy. Patient is having pain medications. Probably quantitating the sleepiness, drowsiness. 86-year-old female with a multiple medical history severe lower back pain. Complicated with the neighbor to walk. Objective - Vital Signs/Intake and Output Vital Signs (last 24 hours): Temp Pulse Resp BP Pulse Ox 98.6 F 61 20 101/67 98 08/25/16 17:33 08/25/16 17:33 08/25/16 17:33 08/25/16 17:33 08/25/16 17:33 Intake and Output: 08/25/16 08/26/16 18:59 06:59 Intake Total 300 Balance 300 - Medications Medications: Current Medications Alprazolam (Xanax) 0.25 mg PO DAILY [facility] Stop: 08/29/16 10:01 Last Admin: 08/25/16 10:12 Dose: 0.25 mg Enoxaparin Sodium (Lovenox) 40 mg SC DAILY [facility] Last Admin: 08/25/16 10:11 Dose: 40 mg Famotidine (Pepcid) 20 mg IVP Q12 [facility] Last Admin: 08/25/16 21:30 Dose: 20 mg Gabapentin (Neurontin) 600 mg PO TID [facility] Last Admin: 08/25/16 17:15 Dose: 600 mg Home Med (Lubiprostone [Amitiza]) 1 tab PO BID [facility] Home Med (Meloxicam [Mobic]) 7.5 mg PO DAILY PRN PRN Reason: Pain, moderate (4-7) Hydrochlorothiazide (Hydrodiuril) 25 mg PO DAILY [facility] Last Admin: 08/25/16 10:12 Dose: 25 mg Hydromorphone HCl (Dilaudid) 1 mg IVP Q4H PRN PRN Reason: Pain, severe (8-10) Last Admin: 08/26/16 01:00 Dose: 1 mg Losartan Potassium (Cozaar) 50 mg PO DAILY [facility] Last Admin: 08/25/16 10:13 Dose: 50 mg Metoprolol Succinate (Toprol Xl) 50 mg PO DAILY [facility] Last Admin: 08/25/16 13:43 Dose: 50 mg Montelukast Sodium (Singulair) 10 mg PO HS [facility] Last Admin: 08/25/16 21:30 Dose: 10 mg Pantoprazole Sodium (Protonix Ec Tab) 40 mg PO DAILY [facility] Last Admin: 08/25/16 13:42 Dose: 40 mg Tramadol HCl (Ultram) 50 mg PO Q8 PRN PRN Reason: Pain, moderate (4-7) Last Admin: 08/25/16 10:13 Dose: 50 mg - Labs Labs: 08/24/16 06:23 PT 11.6 SECONDS (9.7-12.2) 08/21/16 14:38 INR 1.0 08/21/16 14:38 APTT 31 SECONDS (21-34) 08/21/16 14:38
[2016-08-26 06:23] LABS: BASO % 0.5 % (0.0-2.0); EOS # 0.2 K/uL (0.0-0.7); HEMOGLOBIN 12.1 g/dL (11.0-16.0); LYMPH % 19.3 % (20.0-40.0); MEAN CELL VOLUME 79.5 fL (81.0-99.0); MEAN CORPUSCULAR HEMOGLOBIN 25.3 pg (27.0-31.0); MEAN CORPUSCULAR HGB CONC 31.8 g/dL (33.0-37.0); MEAN PLATELET VOLUME 8.2 fL (7.2-11.7); MONO % 9.5 % (0.0-10.0); NEUT % 68.7 % (50.0-75.0); RBC 4.79 Mil/uL (3.80-5.20); RED CELL DISTRIBUTION WIDTH 13.8 % (11.5-14.5); WHITE BLOOD COUNT 10.2 K/uL (4.8-10.8)
[2016-08-26 07:27] LABS: BLOOD UREA NITROGEN 24 mg/dL (7-17); GFR AFRICAN-AMERICAN > 60; GFR NON-AFRICAN AMERICAN > 60
--- NOTE | 2016-08-26 07:32 | CP.PCM.PN ---
Subjective - Date & Time of Evaluation Date of Evaluation: 08/26/16 Time of Evaluation: 07:30 - Subjective Subjective: LOWERE BACK PAIN IS BETTER BUR STILL PAIN EXAM UNCHANGED OOB PT NO NARCOTIC [facility]IVE THERAPY Objective - Vital Signs/Intake and Output Vital Signs (last 24 hours): Temp Pulse Resp BP Pulse Ox 98 F 63 20 131/68 98 08/26/16 00:00 08/26/16 00:00 08/26/16 00:00 08/26/16 00:00 08/26/16 00:00 Intake and Output: 08/26/16 08/26/16 06:59 18:59 Intake Total 340 Balance 340 - Medications Medications: Current Medications Alprazolam (Xanax) 0.25 mg PO DAILY [facility] Stop: 08/29/16 10:01 Last Admin: 08/25/16 10:12 Dose: 0.25 mg Enoxaparin Sodium (Lovenox) 40 mg SC DAILY [facility] Last Admin: 08/25/16 10:11 Dose: 40 mg Famotidine (Pepcid) 20 mg IVP Q12 [facility] Last Admin: 08/25/16 21:30 Dose: 20 mg Gabapentin (Neurontin) 600 mg PO TID [facility] Last Admin: 08/25/16 17:15 Dose: 600 mg Home Med (Lubiprostone [Amitiza]) 1 tab PO BID [facility] Home Med (Meloxicam [Mobic]) 7.5 mg PO DAILY PRN PRN Reason: Pain, moderate (4-7) Hydrochlorothiazide (Hydrodiuril) 25 mg PO DAILY [facility] Last Admin: 08/25/16 10:12 Dose: 25 mg Hydromorphone HCl (Dilaudid) 1 mg IVP Q4H PRN PRN Reason: Pain, severe (8-10) Last Admin: 08/26/16 05:25 Dose: 1 mg Losartan Potassium (Cozaar) 50 mg PO DAILY [facility] Last Admin: 08/25/16 10:13 Dose: 50 mg Metoprolol Succinate (Toprol Xl) 50 mg PO DAILY [facility] Last Admin: 08/25/16 13:43 Dose: 50 mg Montelukast Sodium (Singulair) 10 mg PO HS [facility] Last Admin: 08/25/16 21:30 Dose: 10 mg Pantoprazole Sodium (Protonix Ec Tab) 40 mg PO DAILY [facility] Last Admin: 08/25/16 13:42 Dose: 40 mg Tramadol HCl (Ultram) 50 mg PO Q8 PRN PRN Reason: Pain, moderate (4-7) Last Admin: 08/25/16 10:13 Dose: 50 mg - Labs Labs: 08/26/16 06:05 08/24/16 06:23 PT 11.6 SECONDS (9.7-12.2) 08/21/16 14:38 INR 1.0 08/21/16 14:38 APTT 31 SECONDS (21-34) 08/21/16 14:38
--- NOTE | 2016-08-26 10:12 | CP.PCM.PN ---
Subjective - Date & Time of Evaluation Date of Evaluation: 08/26/16 Time of Evaluation: 10:08 - Subjective Subjective: Progress Note for Dr. La Pt seen and examined at bedside. Pt with no acute events overnight as per nursing. Pt states she is still in a lot of pain and that it is constant. Also admits to trouble ambulating. Denies CP, SOB, N/V/D. Objective - Vital Signs/Intake and Output Vital Signs (last 24 hours): Temp Pulse Resp BP Pulse Ox 98.0 F 60 20 117/70 99 08/26/16 08:56 08/26/16 08:56 08/26/16 08:56 08/26/16 08:56 08/26/16 08:56 Intake and Output: 08/26/16 08/26/16 06:59 18:59 Intake Total 340 Balance 340 - Medications Medications: Current Medications Alprazolam (Xanax) 0.25 mg PO DAILY [facility] Stop: 08/29/16 10:01 Last Admin: 08/25/16 10:12 Dose: 0.25 mg Enoxaparin Sodium (Lovenox) 40 mg SC DAILY [facility] Last Admin: 08/25/16 10:11 Dose: 40 mg Famotidine (Pepcid) 20 mg IVP Q12 [facility] Last Admin: 08/25/16 21:30 Dose: 20 mg Gabapentin (Neurontin) 600 mg PO TID [facility] Last Admin: 08/25/16 17:15 Dose: 600 mg Home Med (Lubiprostone [Amitiza]) 1 tab PO BID [facility] Home Med (Meloxicam [Mobic]) 7.5 mg PO DAILY PRN PRN Reason: Pain, moderate (4-7) Hydrochlorothiazide (Hydrodiuril) 25 mg PO DAILY [facility] Last Admin: 08/25/16 10:12 Dose: 25 mg Hydromorphone HCl (Dilaudid) 1 mg IVP Q4H PRN PRN Reason: Pain, severe (8-10) Last Admin: 08/26/16 09:42 Dose: 1 mg Losartan Potassium (Cozaar) 50 mg PO DAILY [facility] Last Admin: 08/25/16 10:13 Dose: 50 mg Metoprolol Succinate (Toprol Xl) 50 mg PO DAILY [facility] Last Admin: 08/25/16 13:43 Dose: 50 mg Montelukast Sodium (Singulair) 10 mg PO HS [facility] Last Admin: 08/25/16 21:30 Dose: 10 mg Pantoprazole Sodium (Protonix Ec Tab) 40 mg PO DAILY [facility] Last Admin: 08/25/16 13:42 Dose: 40 mg Tramadol HCl (Ultram) 50 mg PO Q8 PRN PRN Reason: Pain, moderate (4-7) Last Admin: 08/25/16 10:13 Dose: 50 mg - Labs Labs: 08/26/16 06:05 08/26/16 06:05 PT 11.6 SECONDS (9.7-12.2) 08/21/16 14:38 INR 1.0 08/21/16 14:38 APTT 31 SECONDS (21-34) 08/21/16 14:38 - Constitutional Appears: Non-toxic, No Acute Distress - Head Exam Head Exam: ATRAUMATIC, NORMAL INSPECTION, NORMOCEPHALIC - ENT Exam ENT Exam: Mucous Membranes Moist - Respiratory Exam Respiratory Exam: Clear to Ausculation Bilateral, NORMAL BREATHING PATTERN - Cardiovascular Exam Cardiovascular Exam: Irregular Rhythm, +S1, +S2 - GI/Abdominal Exam GI & Abdominal Exam: Soft, Normal Bowel Sounds. absent: Tenderness - Extremities Exam Extremities Exam: Pedal Edema. absent: Calf Tenderness - Neurological Exam Neurological Exam: Alert, Awake, Oriented x3 - Skin Skin Exam: Intact, Normal Color, Warm Assessment and Plan (1) Atrial fibrillation Assessment & Plan: Rate controlled on Toprol Will start ASA 325 mg daily Continue current medical regimen at this time Status: Acute
[2016-08-26] MEDS ORDERED: Gadodiamide 287 mg/ml 20 ml IV ONE (10:41)
[2016-08-26] MEDS: Enoxaparin 40 mg Syringe SC SCH (11:35)
[2016-08-26] MEDS: Metoprolol Succinate 50 mg XL Tab PO SCH (11:35)
[2016-08-26] MEDS: Pantoprazole 40 mg EC Tab PO SCH (11:35)
--- NOTE | 2016-08-26 12:13 | CP.PCM.PN ---
Subjective - Date & Time of Evaluation Date of Evaluation: 08/26/16 Time of Evaluation: 12:10 - Subjective Subjective: F/U panc cyst. Reports back pain. Denies abdom pain, constip, diarrhea, RB, melena, fever, chills, ORTEZ, cough, hematuria Objective - Vital Signs/Intake and Output Vital Signs (last 24 hours): Temp Pulse Resp BP Pulse Ox 98.0 F 60 20 117/70 99 08/26/16 08:56 08/26/16 08:56 08/26/16 08:56 08/26/16 08:56 08/26/16 08:56 Intake and Output: 08/26/16 08/26/16 06:59 18:59 Intake Total 340 Balance 340 - Medications Medications: Current Medications Alprazolam (Xanax) 0.25 mg PO DAILY [facility] Stop: 08/29/16 10:01 Last Admin: 08/26/16 11:35 Dose: 0.25 mg Enoxaparin Sodium (Lovenox) 40 mg SC DAILY [facility] Last Admin: 08/26/16 11:35 Dose: 40 mg Famotidine (Pepcid) 20 mg IVP Q12 [facility] Last Admin: 08/26/16 11:35 Dose: 20 mg Gabapentin (Neurontin) 600 mg PO TID [facility] Last Admin: 08/26/16 11:35 Dose: 600 mg Home Med (Lubiprostone [Amitiza]) 1 tab PO BID [facility] Home Med (Meloxicam [Mobic]) 7.5 mg PO DAILY PRN PRN Reason: Pain, moderate (4-7) Hydrochlorothiazide (Hydrodiuril) 25 mg PO DAILY [facility] Last Admin: 08/26/16 11:35 Dose: 25 mg Hydromorphone HCl (Dilaudid) 1 mg IVP Q4H PRN PRN Reason: Pain, severe (8-10) Last Admin: 08/26/16 09:42 Dose: 1 mg Losartan Potassium (Cozaar) 50 mg PO DAILY [facility] Last Admin: 08/26/16 11:35 Dose: 50 mg Metoprolol Succinate (Toprol Xl) 50 mg PO DAILY [facility] Last Admin: 08/26/16 11:35 Dose: 50 mg Montelukast Sodium (Singulair) 10 mg PO HS [facility] Last Admin: 08/25/16 21:30 Dose: 10 mg Pantoprazole Sodium (Protonix Ec Tab) 40 mg PO DAILY [facility] Last Admin: 08/26/16 11:35 Dose: 40 mg Tramadol HCl (Ultram) 50 mg PO Q8 PRN PRN Reason: Pain, moderate (4-7) Last Admin: 08/25/16 10:13 Dose: 50 mg - Labs Labs: 08/26/16 06:05 08/26/16 06:05 PT 11.6 SECONDS (9.7-12.2) 08/21/16 14:38 INR 1.0 08/21/16 14:38 APTT 31 SECONDS (21-34) 08/21/16 14:38 - Constitutional Appears: Well - Respiratory Exam Respiratory Exam: Clear to Ausculation Bilateral - Cardiovascular Exam Cardiovascular Exam: RRR - GI/Abdominal Exam GI & Abdominal Exam: Soft, Normal Bowel Sounds. absent: Tenderness, Rebound - Extremities Exam Extremities Exam: absent: Calf Tenderness - Neurological Exam Neurological Exam: Alert, Awake, Oriented x3 Assessment and Plan (1) Atrial fibrillation Status: Acute (2) Bile duct abnormality Assessment & Plan: dilated duct. Check MRCP MRI. LFTs are normal. Status: Acute (3) Pancreatic cyst Assessment & Plan: CA19 nl. Check mrcp Status: Acute (4) Colon cancer Status: Suspected (5) Back pain Status: Acute
--- NOTE | 2016-08-26 14:09 | MRI ---
MRI abdomen without/with IV contrast MRCP Indication: Pancreas/liver lesions common dilated extrahepatic duct Technique: Multiplanar, multi sequence magnetic resonance images of the abdomen were obtained without and with the administration of intravenous gadolinium using a multi phase abdomen protocol. Rotating maximum intensity projection images of the biliary system were generated. A total of 1169 images submitted for review Comparison: CT abdomen and pelvis without and with IV contrast performed 08/21/16 Findings: 6 mm hepatic dome and 15 mm inferior right hepatic lobe T2 hyperintense T1 hypo intense lesions without evidence of post-contrast enhancement. Diffuse hepatic steatosis. Cholecystectomy. Mild central intrahepatic biliary ductal dilatation. The common bile duct measures up 1.5 cm. The pancreatic duct appears within normal limits of caliber. No filling defects are seen in the common bile duct or pancreatic duct. The kidneys enhance symmetrically. Numerous right-sided T2 hyperintensities which appear consistent with cysts measuring up to 6.1 x 5.2 cm at the right lower/ mid pole. 14 mm exophytic left midpole and 8 mm medial left lower pole renal T2 hypodense T1 hyperintense lesions. No hydronephrosis or obstructing calculus. Numerous T2 hyperintense T1 hypo intense lesions throughout the pancreas without evidence of post-contrast enhancement. The spleen and adrenal glands appear unremarkable. No bulky adenopathy identified. Left upper quadrant ostomy with bowel containing left peristomal hernia. Limited views of the inferior thorax demonstrates partially imaged cardiomegaly Impression: Central intrahepatic biliary ductal dilatation. Dilated common bile duct measures up to 1.5 cm. No focal filling defect identified. Cholecystectomy. Innumerable pancreatic lesions appear consistent with cysts. Differential diagnosis includes small cystic neoplasm versus sequela of prior pancreatitis (dilated side duct radicles or tiny pseudocyst). Correlate clinically. Hepatic steatosis. 15 mm inferior right hepatic lobe lesion appears compact system with a cyst. 6 mm hepatic dome lesion as described above is too small to definitively characterize however does follow characteristics expected of a cyst. Indeterminate exophytic 14 mm left mid pole and 8 mm medial left lower pole renal lesions as described above. Recommend renal ultrasound for further evaluation. Numerous right-sided renal lesions appear compatible with cysts. Additional findings as above.
--- NOTE | 2016-08-26 20:04 | CP.PCM.PN ---
Subjective - Date & Time of Evaluation Date of Evaluation: 08/26/16 Time of Evaluation: 20:00 - Subjective Subjective: INFECTIOUS DISEASE PROGRESS NOTE ALFONSO ALEX MD ,FACP 3T 353-B 08/25- CHART REVIEWED PT EXAMINED CASE DISCUSSED WITH PT, FAMILY AND DR DONAHUE CLINICALLY FEELING BETTER BUT IN PAIN, ON AND OFF. STILL REQUIRES NARCOTIC PAIN MEDS BECAUSE OF SEVERE SPINAL STENOSIS FINALLY MRCP REPORTED OF PANCREATITIC SITE OF NOTED INITIAL FINDINGS, OST PROBABLY CYSTS, VS POST PANCREATITIS.SEROLOGICAL MARKERS ARE NOT DIAGNOSTIC ORDERED BY ME. FOR PLACEMENT FOR PAIN MANAGEMENT Objective - Vital Signs/Intake and Output Vital Signs (last 24 hours): Temp Pulse Resp BP Pulse Ox 98.0 F 60 20 117/70 99 08/26/16 08:56 08/26/16 08:56 08/26/16 08:56 08/26/16 08:56 08/26/16 08:56 Intake and Output: 08/26/16 08/27/16 18:59 06:59 Intake Total 50 Balance 50 - Medications Medications: Current Medications Alprazolam (Xanax) 0.25 mg PO DAILY [facility] Stop: 08/29/16 10:01 Last Admin: 08/26/16 11:35 Dose: 0.25 mg Aspirin (Aspirin) 325 mg PO DAILY [facility] Last Admin: 08/26/16 15:03 Dose: 325 mg Celecoxib (Celebrex) 100 mg PO DAILY PRN PRN Reason: Pain, moderate (4-7) Enoxaparin Sodium (Lovenox) 40 mg SC DAILY [facility] Last Admin: 08/26/16 11:35 Dose: 40 mg Famotidine (Pepcid) 20 mg PO Q12 [facility] Gabapentin (Neurontin) 600 mg PO TID [facility] Last Admin: 08/26/16 17:37 Dose: 600 mg Hydrochlorothiazide (Hydrodiuril) 25 mg PO DAILY [facility] Last Admin: 08/26/16 11:35 Dose: 25 mg Hydromorphone HCl (Dilaudid) 1 mg IVP Q4H PRN PRN Reason: Pain, severe (8-10) Last Admin: 08/26/16 09:42 Dose: 1 mg Losartan Potassium (Cozaar) 50 mg PO DAILY [facility] Last Admin: 08/26/16 11:35 Dose: 50 mg Metoprolol Succinate (Toprol Xl) 50 mg PO DAILY [facility] Last Admin: 08/26/16 11:35 Dose: 50 mg Montelukast Sodium (Singulair) 10 mg PO HS [facility] Last Admin: 08/25/16 21:30 Dose: 10 mg Pantoprazole Sodium (Protonix Ec Tab) 40 mg PO DAILY [facility] Last Admin: 08/26/16 11:35 Dose: 40 mg Tramadol HCl (Ultram) 50 mg PO Q8 PRN PRN Reason: Pain, moderate (4-7) Last Admin: 08/25/16 10:13 Dose: 50 mg - Labs Labs: 08/26/16 06:05 08/26/16 06:05 PT 11.6 SECONDS (9.7-12.2) 08/21/16 14:38 INR 1.0 08/21/16 14:38 APTT 31 SECONDS (21-34) 08/21/16 14:38 - Constitutional Appears: Non-toxic, In Acute Distress, Younger Than Stated Age - Head Exam Head Exam: ATRAUMATIC - Eye Exam Eye Exam: Normal appearance - ENT Exam ENT Exam: Mucous Membranes Moist, Normal Exam - Neck Exam Neck Exam: Full ROM - Respiratory Exam Respiratory Exam: Decreased Breath Sounds, NORMAL BREATHING PATTERN - Cardiovascular Exam Cardiovascular Exam: Bradycardia, REGULAR RHYTHM Additional comments: SLOW ATRIAL FIBRILLATION - Rectal Exam Rectal Exam: Deferred - Neurological Exam Neurological Exam: Alert, Awake, Oriented x3 - Psychiatric Exam Psychiatric exam: Anxious - Skin Skin Exam: Warm Assessment and Plan (1) Back pain Status: Acute (2) Colon cancer Status: Suspected (3) Pancreatic abnormality Status: Acute (4) Lesion of pancreas Status: Suspected
[2016-08-27] MEDS: Metoprolol Succinate 50 mg XL Tab PO SCH (09:26)
[2016-08-27] MEDS: HYDROmorphone 1 mg/ml ISec IVP PRN (09:26)
[2016-08-27] MEDS: Pantoprazole 40 mg EC Tab PO SCH (09:26)
[2016-08-27] MEDS: Enoxaparin 40 mg Syringe SC SCH (09:29)
--- NOTE | 2016-08-27 11:02 | CP.PCM.PN ---
Subjective - Date & Time of Evaluation Date of Evaluation: 08/27/16 Time of Evaluation: 11:00 - Subjective Subjective: Progress note for Dr. La Pt seen and examined at bedside. Pt doing well overnight with no acute events as per nursing. Pt states she still has pain in her legs. Pt states pain medication is helpful. Denies CP, SOB, N/V/D. Objective - Vital Signs/Intake and Output Vital Signs (last 24 hours): Temp Pulse Resp BP Pulse Ox 97.7 F 61 20 149/84 96 08/27/16 07:49 08/27/16 07:49 08/27/16 07:49 08/27/16 07:49 08/27/16 07:49 Intake and Output: 08/27/16 08/27/16 06:59 18:59 Intake Total 220 Balance 220 - Medications Medications: Current Medications Alprazolam (Xanax) 0.25 mg PO DAILY [facility] Stop: 08/29/16 10:01 Last Admin: 08/27/16 09:26 Dose: 0.25 mg Aspirin (Aspirin) 325 mg PO DAILY [facility] Last Admin: 08/27/16 09:29 Dose: 325 mg Cyclobenzaprine HCl (Flexeril) 5 mg PO BID [facility] Last Admin: 08/27/16 10:48 Dose: 5 mg Enoxaparin Sodium (Lovenox) 40 mg SC DAILY [facility] Last Admin: 08/27/16 09:29 Dose: 40 mg Famotidine (Pepcid) 20 mg PO Q12 [facility] Last Admin: 08/27/16 09:26 Dose: 20 mg Gabapentin (Neurontin) 800 mg PO TID [facility] Last Admin: 08/27/16 09:26 Dose: 800 mg Hydrochlorothiazide (Hydrodiuril) 25 mg PO DAILY [facility] Last Admin: 08/27/16 09:26 Dose: 25 mg Hydromorphone HCl (Dilaudid) 1 mg IVP Q4H PRN PRN Reason: Pain, severe (8-10) Last Admin: 08/27/16 09:26 Dose: 1 mg Losartan Potassium (Cozaar) 50 mg PO DAILY [facility] Last Admin: 08/27/16 09:26 Dose: 50 mg Methylprednisolone (Solu-Medrol) 125 mg IV Q8H [facility] Stop: 08/29/16 23:59 Last Admin: 08/27/16 05:20 Dose: 125 mg Metoprolol Succinate (Toprol Xl) 50 mg PO DAILY [facility] Last Admin: 08/27/16 09:26 Dose: 50 mg Montelukast Sodium (Singulair) 10 mg PO HS [facility] Last Admin: 08/26/16 21:36 Dose: 10 mg Pantoprazole Sodium (Protonix Ec Tab) 40 mg PO DAILY [facility] Last Admin: 08/27/16 09:26 Dose: 40 mg - Labs Labs: 08/26/16 06:05 08/26/16 06:05 PT 11.6 SECONDS (9.7-12.2) 08/21/16 14:38 INR 1.0 08/21/16 14:38 APTT 31 SECONDS (21-34) 08/21/16 14:38 - Constitutional Appears: Non-toxic, No Acute Distress - Head Exam Head Exam: ATRAUMATIC, NORMAL INSPECTION, NORMOCEPHALIC - Respiratory Exam Respiratory Exam: Clear to Ausculation Bilateral, NORMAL BREATHING PATTERN - Cardiovascular Exam Cardiovascular Exam: Irregular Rhythm, +S1, +S2 - GI/Abdominal Exam GI & Abdominal Exam: Soft, Normal Bowel Sounds. absent: Tenderness - Neurological Exam Neurological Exam: Alert, Awake - Skin Skin Exam: Intact, Normal Color, Warm Assessment and Plan (1) Atrial fibrillation Assessment & Plan: Pt in A-fib, rate-controlled Continue current medical management Will sign off at this time Reconsult as necessary Thank you Status: Acute
--- NOTE | 2016-08-27 15:21 | CP.PCM.PN ---
Subjective - Date & Time of Evaluation Date of Evaluation: 08/27/16 Time of Evaluation: 15:18 - Subjective Subjective: CC: pancreatic cysts MRI shows multiple small cysts in liver, pancreas, kidneys, probably all benign , however there is mild intrahepatic ductal dilatation + extrahepatic biliary ductal dilatation somewhat concerning for obstruction, although no obstructing mass is seen on CT or MRI. Rec: Elective Endoscopic Ultrasound. Can be done by biliary endoscopist at [place] once back problems are stable, if we wish to pursue this Objective - Vital Signs/Intake and Output Vital Signs (last 24 hours): Temp Pulse Resp BP Pulse Ox 97.7 F 61 20 149/84 96 08/27/16 07:49 08/27/16 14:50 08/27/16 07:49 08/27/16 14:50 08/27/16 14:50 Intake and Output: 08/27/16 08/27/16 06:59 18:59 Intake Total 220 550 Balance 220 550 - Medications Medications: Current Medications Alprazolam (Xanax) 0.25 mg PO DAILY [facility] Stop: 08/29/16 10:01 Last Admin: 08/27/16 09:26 Dose: 0.25 mg Aspirin (Aspirin) 325 mg PO DAILY [facility] Last Admin: 08/27/16 09:29 Dose: 325 mg Cyclobenzaprine HCl (Flexeril) 5 mg PO BID [facility] Last Admin: 08/27/16 10:48 Dose: 5 mg Enoxaparin Sodium (Lovenox) 40 mg SC DAILY [facility] Last Admin: 08/27/16 09:29 Dose: 40 mg Famotidine (Pepcid) 20 mg PO Q12 [facility] Last Admin: 08/27/16 09:26 Dose: 20 mg Gabapentin (Neurontin) 800 mg PO TID [facility] Last Admin: 08/27/16 13:10 Dose: 800 mg Hydrochlorothiazide (Hydrodiuril) 25 mg PO DAILY [facility] Last Admin: 08/27/16 09:26 Dose: 25 mg Hydromorphone HCl (Dilaudid) 1 mg IVP Q4H PRN PRN Reason: Pain, severe (8-10) Last Admin: 08/27/16 09:26 Dose: 1 mg Losartan Potassium (Cozaar) 50 mg PO DAILY [facility] Last Admin: 08/27/16 09:26 Dose: 50 mg Methylprednisolone (Solu-Medrol) 125 mg IV Q8H [facility] Stop: 08/29/16 23:59 Last Admin: 08/27/16 13:10 Dose: 125 mg Metoprolol Succinate (Toprol Xl) 50 mg PO DAILY [facility] Last Admin: 08/27/16 09:26 Dose: 50 mg Montelukast Sodium (Singulair) 10 mg PO HS [facility] Last Admin: 08/26/16 21:36 Dose: 10 mg Pantoprazole Sodium (Protonix Ec Tab) 40 mg PO DAILY [facility] Last Admin: 08/27/16 09:26 Dose: 40 mg - Labs Labs: 08/26/16 06:05 08/26/16 06:05 PT 11.6 SECONDS (9.7-12.2) 08/21/16 14:38 INR 1.0 08/21/16 14:38 APTT 31 SECONDS (21-34) 08/21/16 14:38 - Constitutional Appears: No Acute Distress - Head Exam Head Exam: NORMOCEPHALIC - Eye Exam Eye Exam: absent: Scleral icterus - Cardiovascular Exam Cardiovascular Exam: REGULAR RHYTHM - GI/Abdominal Exam GI & Abdominal Exam: Soft. absent: Tenderness Assessment and Plan (1) Pancreatic cyst Assessment & Plan: small cysts. Undetermined cause. Need to consider noninvasive monitoring with yearly scans vs. aggressive workup via endoscopic ultrasound in this 86 year old patient Status: Acute (2) Back pain Status: Acute (3) Colon cancer Assessment & Plan: Treated in past Seen by Oncologist Would follow conservatively given patient's advanced age Status: Suspected (4) Bile duct abnormality Assessment & Plan: Dilated CBD and slight intrahepatic dilatation See above for recommendation Status: Acute
--- NOTE | 2016-08-27 21:19 | CP.PCM.PN ---
Subjective - Date & Time of Evaluation Date of Evaluation: 08/27/16 Time of Evaluation: 07:05 - Subjective Subjective: LUMBAR RADICULOPATHY AND STENOSIS SLEPT GOOD WITH CURRENT MEDICATION ON PULSING DOSE OF STEROIDS WITH HIGH GABAPENTIN DOSE UNWANTED PAIN MEDS BEEN DISCONTINUED Objective - Vital Signs/Intake and Output Vital Signs (last 24 hours): Temp Pulse Resp BP Pulse Ox 97.7 F 61 20 149/84 96 08/27/16 07:49 08/27/16 14:50 08/27/16 07:49 08/27/16 14:50 08/27/16 14:50 Intake and Output: 08/27/16 08/28/16 18:59 06:59 Intake Total 550 Balance 550 - Medications Medications: Current Medications Alprazolam (Xanax) 0.25 mg PO DAILY [facility] Stop: 08/29/16 10:01 Last Admin: 08/27/16 09:26 Dose: 0.25 mg Aspirin (Aspirin) 325 mg PO DAILY [facility] Last Admin: 08/27/16 09:29 Dose: 325 mg Cyclobenzaprine HCl (Flexeril) 5 mg PO BID [facility] Last Admin: 08/27/16 17:28 Dose: 5 mg Enoxaparin Sodium (Lovenox) 40 mg SC DAILY [facility] Last Admin: 08/27/16 09:29 Dose: 40 mg Famotidine (Pepcid) 20 mg PO Q12 [facility] Last Admin: 08/27/16 09:26 Dose: 20 mg Gabapentin (Neurontin) 800 mg PO TID [facility] Last Admin: 08/27/16 17:28 Dose: 800 mg Hydrochlorothiazide (Hydrodiuril) 25 mg PO DAILY [facility] Last Admin: 08/27/16 09:26 Dose: 25 mg Hydromorphone HCl (Dilaudid) 1 mg IVP Q4H PRN PRN Reason: Pain, severe (8-10) Last Admin: 08/27/16 09:26 Dose: 1 mg Losartan Potassium (Cozaar) 50 mg PO DAILY [facility] Last Admin: 08/27/16 09:26 Dose: 50 mg Methylprednisolone (Solu-Medrol) 125 mg IV Q8H [facility] Stop: 08/29/16 23:59 Last Admin: 08/27/16 13:10 Dose: 125 mg Metoprolol Succinate (Toprol Xl) 50 mg PO DAILY [facility] Last Admin: 08/27/16 09:26 Dose: 50 mg Montelukast Sodium (Singulair) 10 mg PO HS [facility] Last Admin: 08/26/16 21:36 Dose: 10 mg Pantoprazole Sodium (Protonix Ec Tab) 40 mg PO DAILY [facility] Last Admin: 08/27/16 09:26 Dose: 40 mg - Labs Labs: 08/26/16 06:05 08/26/16 06:05 PT 11.6 SECONDS (9.7-12.2) 08/21/16 14:38 INR 1.0 08/21/16 14:38 APTT 31 SECONDS (21-34) 08/21/16 14:38 Assessment and Plan (1) Lumbosacral stenosis Status: Chronic - Assessment and Plan (Free Text) Plan: PHYSICAL THERAPY ENCOURAGE AMBULATION DVT PROPHYLAXIS FALL PRECAUTION WEIGHT REDUCTION
[2016-08-28] MEDS: Metoprolol Succinate 50 mg XL Tab PO SCH (09:39)
[2016-08-28] MEDS: Pantoprazole 40 mg EC Tab PO SCH (09:40)
[2016-08-28] MEDS: Enoxaparin 40 mg Syringe SC SCH (09:40)
[2016-08-28] MEDS ORDERED: guaiFENesin 100 mg/5 ml Syrup UD PO PRN (21:43)
--- NOTE | 2016-08-28 21:55 | CP.PCM.PN ---
Subjective - Date & Time of Evaluation Date of Evaluation: 08/28/16 Time of Evaluation: 16:25 - Subjective Subjective: SLEEPY BUT AROUSABLE ON CALLING HER NAME PER RN SHE IS LESS PAIN AND COMPLAINING Objective - Vital Signs/Intake and Output Vital Signs (last 24 hours): Temp Pulse Resp BP Pulse Ox 98.5 F 60 20 147/75 96 08/28/16 08:27 08/28/16 08:27 08/28/16 08:27 08/28/16 08:27 08/28/16 08:27 - Medications Medications: Current Medications Alprazolam (Xanax) 0.25 mg PO DAILY [facility] Stop: 08/29/16 10:01 Last Admin: 08/28/16 13:18 Dose: 0.25 mg Aspirin (Aspirin) 325 mg PO DAILY [facility] Last Admin: 08/28/16 09:41 Dose: 325 mg Cyclobenzaprine HCl (Flexeril) 5 mg PO BID [facility] Last Admin: 08/28/16 09:39 Dose: 5 mg Enoxaparin Sodium (Lovenox) 40 mg SC DAILY [facility] Last Admin: 08/28/16 09:40 Dose: 40 mg Famotidine (Pepcid) 20 mg PO Q12 [facility] Last Admin: 08/28/16 09:40 Dose: 20 mg Gabapentin (Neurontin) 800 mg PO TID [facility] Last Admin: 08/28/16 13:19 Dose: 800 mg Guaifenesin (Robitussin) 100 mg PO Q8H PRN PRN Reason: Cough Hydrochlorothiazide (Hydrodiuril) 25 mg PO DAILY [facility] Last Admin: 08/28/16 09:40 Dose: 25 mg Hydromorphone HCl (Dilaudid) 1 mg IVP Q4H PRN PRN Reason: Pain, severe (8-10) Last Admin: 08/27/16 09:26 Dose: 1 mg Losartan Potassium (Cozaar) 50 mg PO DAILY [facility] Last Admin: 08/28/16 09:40 Dose: 50 mg Methylprednisolone (Solu-Medrol) 125 mg IV Q8H [facility] Stop: 08/29/16 23:59 Last Admin: 08/28/16 13:18 Dose: 125 mg Metoprolol Succinate (Toprol Xl) 50 mg PO DAILY [facility] Last Admin: 08/28/16 09:39 Dose: 50 mg Montelukast Sodium (Singulair) 10 mg PO HS [facility] Last Admin: 08/27/16 21:35 Dose: 10 mg Pantoprazole Sodium (Protonix Ec Tab) 40 mg PO DAILY [facility] Last Admin: 08/28/16 09:40 Dose: 40 mg - Labs Labs: 08/26/16 06:05 08/26/16 06:05 PT 11.6 SECONDS (9.7-12.2) 08/21/16 14:38 INR 1.0 08/21/16 14:38 APTT 31 SECONDS (21-34) 08/21/16 14:38 - Neurological Exam Additional comments: SHE IS UN COOPERATIVE AND SLEEPS Assessment and Plan (1) Lumbosacral stenosis Assessment & Plan: I RECOMMEND HER CURRENT MEDICATION AND WATCH HER RENAL FUNCTION WELL HER MENTATION AND [place]ETHERGIN[place] OOB PT DVT PROPHYLAXIS Status: Chronic
--- NOTE | 2016-08-28 23:14 | CP.PCM.PN ---
Subjective - Date & Time of Evaluation Date of Evaluation: 08/28/16 Time of Evaluation: 19:00 - Subjective Subjective: INFECTIOUS DISEASE PROGRESS NOTE ALFONSO ALEX MD, FACP 353-B 3T 08/27-08/28/2016 CHART REVIEWED PT EXAMINED TUESDAY AND TUESDAY CASE DISCUSSED WITH DR PARIS AND AGREE WITH INITIATED PULSE DOSE STEROIDS INSTEAD OF HIGH DOSE DILAUDID IN THIS ELDERLY FEMALE. IT APPEARS ALREADY SHE IS ABLE TO FUNCTION WITH HIGH DOSE NEURONTIN AND STEROIDS. VSS SATBLE TO FOLLOW BS AND PAIN ISSUES WOULD THINK THAT FAMILY WILL DECIDE ON PANCREATIC CYSTS AND DUE TO HER AGE AND WEIGHT. FOR POSSIBLE ENDOSCOPIC ULTRASOUND EITHER LOCALLY OR VIA DR OROSCO AT [facility]. Objective - Vital Signs/Intake and Output Vital Signs (last 24 hours): Temp Pulse Resp BP Pulse Ox 98.5 F 60 20 147/75 96 08/28/16 08:27 08/28/16 08:27 08/28/16 08:27 08/28/16 08:27 08/28/16 08:27 - Medications Medications: Current Medications Alprazolam (Xanax) 0.25 mg PO DAILY [facility] Stop: 08/29/16 10:01 Last Admin: 08/28/16 13:18 Dose: 0.25 mg Aspirin (Aspirin) 325 mg PO DAILY [facility] Last Admin: 08/28/16 09:41 Dose: 325 mg Cyclobenzaprine HCl (Flexeril) 5 mg PO BID [facility] Last Admin: 08/28/16 09:39 Dose: 5 mg Enoxaparin Sodium (Lovenox) 40 mg SC DAILY [facility] Last Admin: 08/28/16 09:40 Dose: 40 mg Famotidine (Pepcid) 20 mg PO Q12 [facility] Last Admin: 08/28/16 22:46 Dose: 20 mg Gabapentin (Neurontin) 800 mg PO TID [facility] Last Admin: 08/28/16 13:19 Dose: 800 mg Guaifenesin (Robitussin) 100 mg PO Q8H PRN PRN Reason: Cough Last Admin: 08/28/16 22:46 Dose: 100 mg Hydrochlorothiazide (Hydrodiuril) 25 mg PO DAILY [facility] Last Admin: 08/28/16 09:40 Dose: 25 mg Hydromorphone HCl (Dilaudid) 1 mg IVP Q4H PRN PRN Reason: Pain, severe (8-10) Last Admin: 08/27/16 09:26 Dose: 1 mg Losartan Potassium (Cozaar) 50 mg PO DAILY [facility] Last Admin: 08/28/16 09:40 Dose: 50 mg Methylprednisolone (Solu-Medrol) 125 mg IV Q8H [facility] Stop: 08/29/16 23:59 Last Admin: 08/28/16 21:30 Dose: 125 mg Metoprolol Succinate (Toprol Xl) 50 mg PO DAILY [facility] Last Admin: 08/28/16 09:39 Dose: 50 mg Montelukast Sodium (Singulair) 10 mg PO HS [facility] Last Admin: 08/28/16 22:46 Dose: 10 mg Pantoprazole Sodium (Protonix Ec Tab) 40 mg PO DAILY [facility] Last Admin: 08/28/16 09:40 Dose: 40 mg - Labs Labs: 08/26/16 06:05 08/26/16 06:05 PT 11.6 SECONDS (9.7-12.2) 08/21/16 14:38 INR 1.0 08/21/16 14:38 APTT 31 SECONDS (21-34) 08/21/16 14:38 - Constitutional Appears: Non-toxic, No Acute Distress - Head Exam Head Exam: ATRAUMATIC, NORMAL INSPECTION - Eye Exam Eye Exam: Normal appearance - ENT Exam ENT Exam: Mucous Membranes Moist - Neck Exam Neck Exam: Normal Inspection - Respiratory Exam Respiratory Exam: Clear to Ausculation Bilateral, NORMAL BREATHING PATTERN - Cardiovascular Exam Cardiovascular Exam: REGULAR RHYTHM Additional comments: BUT WITH ATRIAL FIB - GI/Abdominal Exam GI & Abdominal Exam: Soft, Normal Bowel Sounds - Rectal Exam Rectal Exam: Deferred - Back Exam Back Exam: paraspinal tenderness. absent: rash noted - Neurological Exam Neurological Exam: Alert, Awake. absent: Normal Gait - Psychiatric Exam Psychiatric exam: Normal Affect, Normal Mood - Skin Skin Exam: Normal Color, Warm Assessment and Plan (1) Back pain Status: Acute (2) Colon cancer Status: Suspected (3) Pancreatic abnormality Status: Suspected (4) Lesion of pancreas Status: Suspected (5) Pancreatic cyst Status: Acute (6) Atrial fibrillation Status: Acute (7) Lumbosacral stenosis Status: Acute
[2016-08-29] MEDS: Pantoprazole 40 mg EC Tab PO SCH (09:01)
[2016-08-29] MEDS: Metoprolol Succinate 50 mg XL Tab PO SCH (09:01)
[2016-08-29] MEDS: Enoxaparin 40 mg Syringe SC SCH (09:01)
--- NOTE | 2016-08-29 18:25 | CP.PCM.PN ---
Subjective - Date & Time of Evaluation Date of Evaluation: 08/29/16 Time of Evaluation: 18:23 - Subjective Subjective: COMFORTABLY LYING DOWN IN BED STATING SHE WILL BE GOING HOME TOMORROW OR TUESDAY PAIN IS WELL CONTROLLED SHE IS BACK TO HER BASE TOLERATED HIGH DOSE STEROIDS TODAY IS THE LAST DOSE AND WILL BE STOPPED SHE CAN CONTINUE GBP FOR NOW AND FOLLOW RENAL FUNCTION OOB PT AND WEIGHT REDUCTION BEEN DISCUSSED Objective - Vital Signs/Intake and Output Vital Signs (last 24 hours): Temp Pulse Resp BP Pulse Ox 98.3 F 45 L 20 124/80 98 08/29/16 15:00 08/29/16 15:00 08/29/16 15:00 08/29/16 15:00 08/29/16 15:00 Intake and Output: 08/29/16 08/29/16 06:59 18:59 Intake Total 120 450 Balance 120 450 - Medications Medications: Current Medications Aspirin (Aspirin) 325 mg PO DAILY [facility] Last Admin: 08/29/16 09:01 Dose: 325 mg Cyclobenzaprine HCl (Flexeril) 5 mg PO BID [facility] Last Admin: 08/29/16 17:55 Dose: 5 mg Enoxaparin Sodium (Lovenox) 40 mg SC DAILY [facility] Last Admin: 08/29/16 09:01 Dose: 40 mg Famotidine (Pepcid) 20 mg PO Q12 [facility] Last Admin: 08/29/16 09:01 Dose: 20 mg Gabapentin (Neurontin) 800 mg PO TID [facility] Last Admin: 08/29/16 17:55 Dose: 800 mg Guaifenesin (Robitussin) 100 mg PO Q8H PRN PRN Reason: Cough Last Admin: 08/28/16 22:46 Dose: 100 mg Hydrochlorothiazide (Hydrodiuril) 25 mg PO DAILY [facility] Last Admin: 08/29/16 09:01 Dose: 25 mg Hydromorphone HCl (Dilaudid) 1 mg IVP Q4H PRN PRN Reason: Pain, severe (8-10) Last Admin: 08/27/16 09:26 Dose: 1 mg Losartan Potassium (Cozaar) 50 mg PO DAILY [facility] Last Admin: 08/29/16 09:01 Dose: 50 mg Methylprednisolone (Solu-Medrol) 125 mg IV Q8H [facility] Stop: 08/29/16 23:59 Last Admin: 08/29/16 13:13 Dose: 125 mg Metoprolol Succinate (Toprol Xl) 50 mg PO DAILY [facility] Last Admin: 08/29/16 09:01 Dose: 50 mg Montelukast Sodium (Singulair) 10 mg PO HS [facility] Last Admin: 08/28/16 22:46 Dose: 10 mg Pantoprazole Sodium (Protonix Ec Tab) 40 mg PO DAILY [facility] Last Admin: 08/29/16 09:01 Dose: 40 mg - Labs Labs: 08/26/16 06:05 08/26/16 06:05 PT 11.6 SECONDS (9.7-12.2) 08/21/16 14:38 INR 1.0 08/21/16 14:38 APTT 31 SECONDS (21-34) 08/21/16 14:38 Assessment and Plan (1) Lumbosacral stenosis Status: Acute
--- NOTE | 2016-08-29 23:26 | CP.PCM.PN ---
Subjective - Date & Time of Evaluation Date of Evaluation: 08/29/16 Time of Evaluation: 23:26 - Subjective Subjective: Patient feeling somewhat better, still pain noted. Spoke to the patient family in details. Patient is not wanted to go to rehabitation. Will continue the current pain management, physical therapy. On examination: HEENT PERRLA, neck supple No thyromegaly was noted and no cervical adenopathy noted Chest bilateral good air entry, no wheezing or rales noted CVS regular heart sound, no murmur Abdomen soft and no organomegaly Extremities no pedal edema, no leg swelling, pedal pulses are good. 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 Assessment and recommendation: 86year-old female with a multiple medical history chronic lower back pain, aggravated now. Continue the current management. Will follow up Objective - Vital Signs/Intake and Output Vital Signs (last 24 hours): Temp Pulse Resp BP Pulse Ox 98.3 F 45 L 20 124/80 98 08/29/16 15:00 08/29/16 15:00 08/29/16 15:00 08/29/16 15:00 08/29/16 15:00 Intake and Output: 08/29/16 08/30/16 18:59 06:59 Intake Total 450 Balance 450 - Medications Medications: Current Medications Aspirin (Aspirin) 325 mg PO DAILY [facility] Last Admin: 08/29/16 09:01 Dose: 325 mg Cyclobenzaprine HCl (Flexeril) 5 mg PO BID [facility] Last Admin: 08/29/16 17:55 Dose: 5 mg Enoxaparin Sodium (Lovenox) 40 mg SC DAILY [facility] Last Admin: 08/29/16 09:01 Dose: 40 mg Famotidine (Pepcid) 20 mg PO Q12 [facility] Last Admin: 08/29/16 22:46 Dose: 20 mg Gabapentin (Neurontin) 800 mg PO TID [facility] Last Admin: 08/29/16 17:55 Dose: 800 mg Guaifenesin (Robitussin) 100 mg PO Q8H PRN PRN Reason: Cough Last Admin: 08/28/16 22:46 Dose: 100 mg Hydrochlorothiazide (Hydrodiuril) 25 mg PO DAILY [facility] Last Admin: 08/29/16 09:01 Dose: 25 mg Hydromorphone HCl (Dilaudid) 1 mg IVP Q4H PRN PRN Reason: Pain, severe (8-10) Last Admin: 08/27/16 09:26 Dose: 1 mg Losartan Potassium (Cozaar) 50 mg PO DAILY [facility] Last Admin: 08/29/16 09:01 Dose: 50 mg Methylprednisolone (Solu-Medrol) 125 mg IV Q8H [facility] Stop: 08/29/16 23:59 Last Admin: 08/29/16 22:46 Dose: 125 mg Metoprolol Succinate (Toprol Xl) 50 mg PO DAILY [facility] Last Admin: 08/29/16 09:01 Dose: 50 mg Montelukast Sodium (Singulair) 10 mg PO HS [facility] Last Admin: 08/29/16 22:46 Dose: 10 mg Pantoprazole Sodium (Protonix Ec Tab) 40 mg PO DAILY [facility] Last Admin: 08/29/16 09:01 Dose: 40 mg - Labs Labs: 08/26/16 06:05 08/26/16 06:05 PT 11.6 SECONDS (9.7-12.2) 08/21/16 14:38 INR 1.0 08/21/16 14:38 APTT 31 SECONDS (21-34) 08/21/16 14:38
--- NOTE | 2016-08-30 09:09 | CP.PCM.PN ---
Subjective - Date & Time of Evaluation Date of Evaluation: 08/30/16 Time of Evaluation: 09:06 - Subjective Subjective: INFECTIOUS DISEASE PROGRESS NOTE ALFONSO ALEX MD, FACP 3T 353-B 08/30/2016 CHART REVIEWED PT EXAMINED CASE DISCUSSED WITH MEDICAL STAFF CLINCIALLY MUCH RELIEF FROM HER LUMBARSACRAL STENOSIS STILL SOME MINOR PAIN IN HER RIGHT HAND LUNGS CLEAR COR RR ABD SOFT,COLOSTOMY WORKING EXT WALKING BACK TO BASE LINE. APPRECIATE MUCH DR PARIS'S MEDICAL EXPERTISE FOR POSSIBLE DISCHARGE TOMORROW. Objective - Vital Signs/Intake and Output Vital Signs (last 24 hours): Temp Pulse Resp BP Pulse Ox 98.5 F 68 20 146/88 96 08/30/16 07:45 08/30/16 07:45 08/30/16 07:45 08/30/16 07:45 08/30/16 07:45 Intake and Output: 08/30/16 08/30/16 06:59 18:59 Intake Total 620 Balance 620 - Medications Medications: Current Medications Aspirin (Aspirin) 325 mg PO DAILY [facility] Last Admin: 08/29/16 09:01 Dose: 325 mg Cyclobenzaprine HCl (Flexeril) 5 mg PO BID [facility] Last Admin: 08/29/16 17:55 Dose: 5 mg Enoxaparin Sodium (Lovenox) 40 mg SC DAILY [facility] Last Admin: 08/29/16 09:01 Dose: 40 mg Famotidine (Pepcid) 20 mg PO Q12 [facility] Last Admin: 08/29/16 22:46 Dose: 20 mg Gabapentin (Neurontin) 800 mg PO TID [facility] Last Admin: 08/29/16 17:55 Dose: 800 mg Guaifenesin (Robitussin) 100 mg PO Q8H PRN PRN Reason: Cough Last Admin: 08/28/16 22:46 Dose: 100 mg Hydrochlorothiazide (Hydrodiuril) 25 mg PO DAILY [facility] Last Admin: 08/29/16 09:01 Dose: 25 mg Hydromorphone HCl (Dilaudid) 1 mg IVP Q4H PRN PRN Reason: Pain, severe (8-10) Last Admin: 08/27/16 09:26 Dose: 1 mg Losartan Potassium (Cozaar) 50 mg PO DAILY [facility] Last Admin: 08/29/16 09:01 Dose: 50 mg Metoprolol Succinate (Toprol Xl) 50 mg PO DAILY [facility] Last Admin: 08/29/16 09:01 Dose: 50 mg Montelukast Sodium (Singulair) 10 mg PO HS [facility] Last Admin: 08/29/16 22:46 Dose: 10 mg Pantoprazole Sodium (Protonix Ec Tab) 40 mg PO DAILY [facility] Last Admin: 08/29/16 09:01 Dose: 40 mg - Labs Labs: 08/26/16 06:05 08/26/16 06:05 PT 11.6 SECONDS (9.7-12.2) 08/21/16 14:38 INR 1.0 08/21/16 14:38 APTT 31 SECONDS (21-34) 08/21/16 14:38 - Constitutional Appears: Non-toxic, No Acute Distress - Head Exam Head Exam: ATRAUMATIC, NORMAL INSPECTION - Eye Exam Eye Exam: Normal appearance Pupil Exam: NORMAL ACCOMODATION - ENT Exam ENT Exam: Mucous Membranes Moist - Neck Exam Neck Exam: Normal Inspection - Respiratory Exam Respiratory Exam: Clear to Ausculation Bilateral, NORMAL BREATHING PATTERN - Cardiovascular Exam Cardiovascular Exam: REGULAR RHYTHM - GI/Abdominal Exam GI & Abdominal Exam: Soft, Normal Bowel Sounds. absent: Tenderness - Rectal Exam Rectal Exam: Deferred - Back Exam Back Exam: NORMAL INSPECTION - Neurological Exam Neurological Exam: Alert, Awake - Psychiatric Exam Psychiatric exam: Normal Affect, Normal Mood - Skin Skin Exam: Warm Assessment and Plan (1) Back pain Status: Acute (2) Colon cancer Status: Suspected (3) Pancreatic abnormality Status: Suspected (4) Lesion of pancreas Status: Suspected (5) Pancreatic cyst Status: Acute (6) Atrial fibrillation Status: Acute (7) Lumbosacral stenosis Status: Acute
[2016-08-30] MEDS: Metoprolol Succinate 50 mg XL Tab PO SCH (09:40)
[2016-08-30] MEDS: Pantoprazole 40 mg EC Tab PO SCH (09:40)
[2016-08-30] MEDS: Enoxaparin 40 mg Syringe SC SCH (10:24)
[2016-08-30] MEDS ORDERED: HYDROmorphone 1 mg/ml ISec IVP PRN (21:35)
[2016-08-30] MEDS: HYDROmorphone 1 mg/ml ISec SC PRN (22:01)
--- NOTE | 2016-08-30 22:41 | CP.PCM.PN ---
Subjective - Date & Time of Evaluation Date of Evaluation: 08/30/16 Time of Evaluation: 22:40 - Subjective Subjective: Patient still having some pain, patient is feeling slightly better, no nausea vomiting. Patient still having some trouble in walking to the body participating in physical therapy. No chest pain or shortness of breath Objective - Vital Signs/Intake and Output Vital Signs (last 24 hours): Temp Pulse Resp BP Pulse Ox 98.1 F 59 L 20 116/64 96 08/30/16 18:11 08/30/16 18:11 08/30/16 18:11 08/30/16 18:11 08/30/16 18:11 Intake and Output: 08/30/16 08/31/16 18:59 06:59 Intake Total 500 Output Total 400 Balance 100 - Medications Medications: Current Medications Aspirin (Aspirin) 325 mg PO DAILY [facility] Last Admin: 08/30/16 09:40 Dose: 325 mg Cyclobenzaprine HCl (Flexeril) 5 mg PO BID [facility] Last Admin: 08/30/16 17:32 Dose: 5 mg Enoxaparin Sodium (Lovenox) 40 mg SC DAILY [facility] Last Admin: 08/30/16 10:24 Dose: 40 mg Famotidine (Pepcid) 20 mg PO Q12 [facility] Last Admin: 08/30/16 21:29 Dose: 20 mg Gabapentin (Neurontin) 800 mg PO TID [facility] Last Admin: 08/30/16 17:33 Dose: 800 mg Guaifenesin (Robitussin) 100 mg PO Q8H PRN PRN Reason: Cough Last Admin: 08/28/16 22:46 Dose: 100 mg Hydrochlorothiazide (Hydrodiuril) 25 mg PO DAILY [facility] Last Admin: 08/30/16 09:40 Dose: 25 mg Hydromorphone HCl (Dilaudid) 1 mg SC Q4H PRN PRN Reason: Pain, moderate (4-7) Last Admin: 08/30/16 22:01 Dose: 1 mg Losartan Potassium (Cozaar) 50 mg PO DAILY [facility] Last Admin: 08/30/16 09:40 Dose: 50 mg Metoprolol Succinate (Toprol Xl) 50 mg PO DAILY [facility] Last Admin: 08/30/16 09:40 Dose: 50 mg Montelukast Sodium (Singulair) 10 mg PO HS [facility] Last Admin: 08/30/16 21:29 Dose: 10 mg Pantoprazole Sodium (Protonix Ec Tab) 40 mg PO DAILY [facility] Last Admin: 08/30/16 09:40 Dose: 40 mg - Labs Labs: 08/26/16 06:05 08/26/16 06:05 PT 11.6 SECONDS (9.7-12.2) 08/21/16 14:38 INR 1.0 08/21/16 14:38 APTT 31 SECONDS (21-34) 08/21/16 14:38 On examination: HEENT PERRLA, neck supple No thyromegaly was noted and no cervical adenopathy noted Chest bilateral good air entry, no wheezing or rales noted CVS regular heart sound, no murmur Abdomen soft and no organomegaly Extremities no pedal edema, no leg swelling, pedal pulses are good. [employer] alert awake oriented x3 no functional neurological deficit Assessment and Plan (1) Atrial fibrillation Status: Acute (2) Back pain Status: Acute (3) Lumbosacral stenosis Assessment & Plan: patient with the severe lumbar stenosis, complicated with the pain.Currently receiving pain medicine. Continue the current treatment. For physical therapy. Discharge the patient home, possibly. If stable. Status: Acute
[2016-08-31] MEDS: Metoprolol Succinate 50 mg XL Tab PO SCH (09:40)
[2016-08-31] MEDS: Pantoprazole 40 mg EC Tab PO SCH (09:40)
[2016-08-31] MEDS: Enoxaparin 40 mg Syringe SC SCH (09:41)
[2016-08-31] MEDS: HYDROmorphone 1 mg/ml ISec SC PRN (22:01)
--- NOTE | 2016-08-31 23:13 | CP.PCM.PN ---
Subjective - Date & Time of Evaluation Date of Evaluation: 08/31/16 Time of Evaluation: 23:11 - Subjective Subjective: Patient's of back pain is much improved. Still having pain but better. Tolerating the ambulation. No chest pain or shortness of breath. Family was at bedside. Vital signs reviewed No neck vein distention noted Chest good air entry bilaterally, no wheezing or rales noted CVS regular heart sound, no murmur noted Abdomen soft, nontender. Extremities no pedal edema [employer] alert awake oriented 3, no functional neurological deficit 08/26/2016 MRI and MRCP showing evidence of multiple pancreatic lesions. Intrahepatic dilatation of the biliary duct will need a more evaluation as an outpatient Assessment and recommendation: 85-year-old female with history of hypertension spinal stenosis admitted with a severe pain intractable. Currently okay. On medications. Patient possibly will be transferred home. Family does not want her to go to the rehabilitation Objective - Vital Signs/Intake and Output Vital Signs (last 24 hours): Temp Pulse Resp BP Pulse Ox 98.4 F 60 20 109/59 L 96 08/31/16 15:00 08/31/16 15:00 08/31/16 15:00 08/31/16 15:00 08/31/16 15:00 Intake and Output: 08/31/16 09/01/16 18:59 06:59 Intake Total 500 450 Balance 500 450 - Medications Medications: Current Medications Aspirin (Aspirin) 325 mg PO DAILY [facility] Last Admin: 08/31/16 09:40 Dose: 325 mg Cyclobenzaprine HCl (Flexeril) 5 mg PO BID [facility] Last Admin: 08/31/16 18:19 Dose: 5 mg Famotidine (Pepcid) 20 mg PO Q12 [facility] Last Admin: 08/31/16 21:55 Dose: 20 mg Gabapentin (Neurontin) 800 mg PO TID [facility] Last Admin: 08/31/16 18:19 Dose: 800 mg Guaifenesin (Robitussin) 100 mg PO Q8H PRN PRN Reason: Cough Last Admin: 08/28/16 22:46 Dose: 100 mg Hydrochlorothiazide (Hydrodiuril) 25 mg PO DAILY [facility] Last Admin: 08/31/16 09:41 Dose: 25 mg Hydromorphone HCl (Dilaudid) 1 mg SC Q4H PRN PRN Reason: Pain, moderate (4-7) Last Admin: 08/31/16 22:01 Dose: 1 mg Losartan Potassium (Cozaar) 50 mg PO DAILY [facility] Last Admin: 08/31/16 09:40 Dose: 50 mg Metoprolol Succinate (Toprol Xl) 50 mg PO DAILY [facility] Last Admin: 08/31/16 09:40 Dose: 50 mg Montelukast Sodium (Singulair) 10 mg PO HS [facility] Last Admin: 08/31/16 21:55 Dose: 10 mg Pantoprazole Sodium (Protonix Ec Tab) 40 mg PO DAILY [facility] Last Admin: 08/31/16 09:40 Dose: 40 mg - Labs Labs: 08/26/16 06:05 08/26/16 06:05 PT 11.6 SECONDS (9.7-12.2) 08/21/16 14:38 INR 1.0 08/21/16 14:38 APTT 31 SECONDS (21-34) 08/21/16 14:38 Assessment and Plan (1) Atrial fibrillation Status: Acute (2) Back pain Status: Acute (3) Lumbosacral stenosis Status: Acute
[2016-09-01 00:53] VITALS: TEMP 97.6
[2016-09-01] MEDS: Pantoprazole 40 mg EC Tab PO SCH (10:38)
[2016-09-01] MEDS: Metoprolol Succinate 50 mg XL Tab PO SCH (10:38)
[2016-09-01 11:13] VITALS: BP 108/62; PULSE 66; O2SAT 95
--- NOTE | 2016-09-01 13:53 | CP.PCM.PN ---
Subjective - Date & Time of Evaluation Date of Evaluation: 09/01/16 Time of Evaluation: 13:53 - Subjective Subjective: PT'S SON AT BEDSIDE AND STATES THAT HE WAS TOLD THE PT WOULD BE D/C HOME TODAY. CLAIMS ANALYST DISCUSSED D/C PLAN WITH DR. MINAYA AND OK TO D/C HOME TODAY. NO NEW RX. PT WILL BE PROVIDED WITH CONTACT INFORMATION FOR THE [facility] AND HAS HER OWN WALKER. CLAIMS ANALYST DISCUSSED ALL D/C INFORMATION WITH PT'S SON AND HE IS IN AGREEMENT WITH PLAN. TO F/U WITH DR. MINAYA IN THE OFFICE WITHIN 5-7 DAYS. NO FURTHER ORDERS. Objective - Vital Signs/Intake and Output Vital Signs (last 24 hours): Temp Pulse Resp BP Pulse Ox 97.6 F 66 20 108/62 95 09/01/16 08:00 09/01/16 08:00 09/01/16 08:00 09/01/16 08:00 09/01/16 08:00 Intake and Output: 09/01/16 09/01/16 06:59 18:59 Intake Total 630 Balance 630 - Medications Medications: Current Medications Aspirin (Aspirin) 325 mg PO DAILY [facility] Last Admin: 09/01/16 10:36 Dose: 325 mg Cyclobenzaprine HCl (Flexeril) 5 mg PO BID [facility] Last Admin: 09/01/16 10:37 Dose: 5 mg Famotidine (Pepcid) 20 mg PO Q12 [facility] Last Admin: 09/01/16 10:38 Dose: 20 mg Gabapentin (Neurontin) 800 mg PO TID [facility] Last Admin: 09/01/16 13:48 Dose: 800 mg Guaifenesin (Robitussin) 100 mg PO Q8H PRN PRN Reason: Cough Last Admin: 08/28/16 22:46 Dose: 100 mg Hydrochlorothiazide (Hydrodiuril) 25 mg PO DAILY [facility] Last Admin: 09/01/16 10:37 Dose: 25 mg Hydromorphone HCl (Dilaudid) 1 mg SC Q4H PRN PRN Reason: Pain, moderate (4-7) Last Admin: 08/31/16 22:01 Dose: 1 mg Losartan Potassium (Cozaar) 50 mg PO DAILY [facility] Last Admin: 09/01/16 10:37 Dose: 50 mg Metoprolol Succinate (Toprol Xl) 50 mg PO DAILY [facility] Last Admin: 09/01/16 10:38 Dose: 50 mg Montelukast Sodium (Singulair) 10 mg PO HS [facility] Last Admin: 08/31/16 21:55 Dose: 10 mg Pantoprazole Sodium (Protonix Ec Tab) 40 mg PO DAILY [facility] Last Admin: 09/01/16 10:38 Dose: 40 mg - Labs Labs: 08/26/16 06:05 08/26/16 06:05 PT 11.6 SECONDS (9.7-12.2) 08/21/16 14:38 INR 1.0 08/21/16 14:38 APTT 31 SECONDS (21-34) 08/21/16 14:38
--- NOTE | 2016-09-02 10:10 | PQF GENQUE ---
This form is a permanent part of the medical record Dr. Haynes, According to the progress notes of 08/[address] Paris, patient had a changed of mental status. His assessment was Encephalopathy. If you concur please make a note of it in your notes of DS. Thank you. Clarification of your documentation is requested to better reflect the severity of illness and intensity of treatment of your patient. Indicators present [] Specify: [patient did not have any evidence of encephalopathy. Patient had suspected altered mental status, secondary to opiate medications.] [] Specify: [] [] Specify: [] [] Specify: [] Location in the medical record that reflects the above clinical findings: [ PROGRESS NOTES OF 08/[address] PARIS] Treatment Provided: [adjusting the opiate medications, reducing the dose, improved markedly the mental status.] PHYSICIAN'S RESPONSE Based on your medical judgment of the clinical indicators outlined above please clarify the following: [x] Practitioner response [] If unable to determine, please check the box, sign and date. Present On Admission (POA) Indicator: [] Present at the time of admission [x] Not present at the time of admission [] Clinically Undetermined In responding to this query, please exercise your independent professional judgment. The fact that a question is asked does not imply that any particular answer is desired or expected. Thank you for your clarification on this documentation. If you have any questions please call:[ ] * Thank you, [ ] maintenance mechanic millwright SHANTANU
--- NOTE | 2016-09-04 19:27 | CARD ---
APPROVED REPORT EKG Measurement Heart [id number] <Conclusion> Atrial fibrillation Right bundle branch block Abnormal ECG
--- NOTE | 2016-09-06 22:14 | CP.PCM.PN ---
Subjective - Date & Time of Evaluation Date of Evaluation: 08/24/16 Time of Evaluation: 22:14 - Subjective Subjective: Patient still continues to have the lower back pain. She's also having abdominal pain. No nausea noted. Poorly taking any food. Vital signs stable. Clinical examination is unremarkable otherwise. Awake and responding. But somewhat easily sleepy. Patient is having pain medications. Probably quantitating the sleepiness, drowsiness. 86-year-old female with a multiple medical history severe lower back pain. Complicated with the neighbor to walk. Objective - Vital Signs/Intake and Output Vital Signs (last 24 hours): Temp Pulse Resp BP Pulse Ox 97.6 F 66 20 108/62 95 09/01/16 08:00 09/01/16 08:00 09/01/16 08:00 09/01/16 08:00 09/01/16 08:00 - Labs Labs: 08/26/16 06:05 08/26/16 06:05 PT 11.6 SECONDS (9.7-12.2) 08/21/16 14:38 INR 1.0 08/21/16 14:38 APTT 31 SECONDS (21-34) 08/21/16 14:38 Assessment and Plan (1) Atrial fibrillation Status: Acute (2) Back pain Status: Acute (3) Lumbosacral stenosis Status: Acute
--- NOTE | 2016-09-06 22:14 | CP.PCM.PN ---
Subjective - Date & Time of Evaluation Date of Evaluation: 08/27/16 Time of Evaluation: 22:14 - Subjective Subjective: No abdominal pain, no nausea vomiting. But having some difficulty in going to the bathroom. Severe back pain. Currently on dilaudid Vital signs stable. Chest good air entry, bilaterally. No rales noted Abdomen soft, nontender. Assessment and recommendation: 85-year-old female with history of colostomy, secondary to colon cancer. Obesity, atrial fibrillation. Pancreatic pseudocyst. Admitted with severe abdominal pain, severe lower back pain. Objective - Vital Signs/Intake and Output Vital Signs (last 24 hours): Temp Pulse Resp BP Pulse Ox 97.6 F 66 20 108/62 95 09/01/16 08:00 09/01/16 08:00 09/01/16 08:00 09/01/16 08:00 09/01/16 08:00 - Labs Labs: 08/26/16 06:05 08/26/16 06:05 PT 11.6 SECONDS (9.7-12.2) 08/21/16 14:38 INR 1.0 08/21/16 14:38 APTT 31 SECONDS (21-34) 08/21/16 14:38 Assessment and Plan (1) Atrial fibrillation Status: Acute (2) Back pain Status: Acute (3) Lumbosacral stenosis Status: Acute
--- NOTE | 2016-09-06 22:14 | CP.PCM.PN ---
Subjective - Date & Time of Evaluation Date of Evaluation: 08/28/16 Time of Evaluation: 22:14 - Subjective Subjective: A patient did not have any episode of altered mental status today. But it 2 days ago patient had an episode of dizziness. She was also feeling sleepy. Drowsy. Seen by neurologist. At the time patient was noted to have a suspected altered mental status. But further evaluation was not done because of her age. And patient was also on significant amount of pain medications. After reducing the medication. Patient started feeling much improvement in the symptoms. Currently feeling okay, no chest pain. Feeling otherwise normal. But still continues to have a pain, on multiple pain medications at this time Objective - Vital Signs/Intake and Output Vital Signs (last 24 hours): Temp Pulse Resp BP Pulse Ox 97.6 F 66 20 108/62 95 09/01/16 08:00 09/01/16 08:00 09/01/16 08:00 09/01/16 08:00 09/01/16 08:00 - Labs Labs: 08/26/16 06:05 08/26/16 06:05 PT 11.6 SECONDS (9.7-12.2) 08/21/16 14:38 INR 1.0 08/21/16 14:38 APTT 31 SECONDS (21-34) 08/21/16 14:38 Assessment and Plan (1) Atrial fibrillation Status: Acute (2) Back pain Status: Acute (3) Lumbosacral stenosis Status: Acute
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
--- NOTE | 2016-09-13 13:25 | CARD ---
APPROVED REPORT EKG Measurement Heart [id number] <Conclusion> Atrial fibrillation with slow ventricular response Left axis deviation Right bundle branch block T wave abnormality, consider lateral ischemia Abnormal ECG
== END 2016-09-01 18:50 | disposition home health service (06) | DRG 552 ==
LOC: C.ER 13:25 → C.9E 20:41 → C.3T 21:11 → OBSVTOIN 08-23 15:13
PROVIDERS: ADMIT Internal Medicine; ATTEND Internal Medicine
DX: M48.07 Spinal stenosis, lumbosacral region (principal); I48.91 Unspecified atrial fibrillation; K86.2 Cyst of pancreas; K83.8 Other specified diseases of biliary tract; K76.89 Other specified diseases of liver; E66.9 Obesity, unspecified; G89.29 Other chronic pain; M54.16 Radiculopathy, lumbar region; J45.909 Unspecified asthma, uncomplicated; I10 Essential (primary) hypertension; Z85.038 Personal history of other malignant neoplasm of large intestine; Z93.3 Colostomy status

== ENCOUNTER 2016-10-07 17:57 | Inpatient (IN) | payer MEDICARE, OTHER ==
[2016-10-07] MEDS ORDERED: HYDROmorphone 0.5 mg/0.5 ml ISec IVP STA (18:47)
[2016-10-07] MEDS ORDERED: HYDROmorphone 1 mg/ml ISec ONE (18:48)
[2016-10-07 18:56] LABS: BASO % 0.3 % (0.0-2.0); EOS # 0.1 K/uL (0.0-0.7); EOS % 1.1 % (0.0-4.0); HEMATOCRIT 38.9 % (34.0-47.0); LYMPH # 1.4 K/uL (1.0-4.3); LYMPH % 14.9 % (20.0-40.0); MEAN CELL VOLUME 79.3 fL (81.0-99.0); MEAN CORPUSCULAR HEMOGLOBIN 25.4 pg (27.0-31.0); MEAN CORPUSCULAR HGB CONC 32.1 g/dL (33.0-37.0); MEAN PLATELET VOLUME 8.4 fL (7.2-11.7); MONO # 0.6 K/uL (0.0-0.8); MONO % 6.3 % (0.0-10.0); WHITE BLOOD COUNT 9.2 K/uL (4.8-10.8)
[2016-10-07 19:04] LABS: CHLORIDE 101 mmol/L (98-107)
[2016-10-07 19:05] LABS: SODIUM 137 mmol/L (132-148)
[2016-10-07 19:06] LABS: POTASSIUM 5.6 mmol/L (3.6-5.2)
[2016-10-07 19:07] LABS: ALB/GLOB RATIO 1.3 (1.0-2.1); ALKALINE PHOSPHATASE 62 U/L (38-126); ALT/SGPT 31 U/L (9-52); AST/SGOT 22 U/L (14-36); BILIRUBIN,TOTAL 0.8 mg/dL (0.2-1.3); BLOOD UREA NITROGEN 15 mg/dL (7-17); CARBON DIOXIDE 25 mmol/L (22-30); GFR AFRICAN-AMERICAN > 60; GLUCOSE,RANDOM 114 mg/dL (65-105)
[2016-10-07 19:08] LABS: CALCIUM 8.8 mg/dl (8.6-10.4); MAGNESIUM 1.5 mg/dL (1.6-2.3); PHOSPHOROUS 4.2 mg/dL (2.5-4.5)
[2016-10-07] MEDS ORDERED: Sod Polystyrene Sulf 15 gm/60 ml Oral Susp PO STA (19:12)
[2016-10-07] MEDS ORDERED: Sod Polystyrene Sulf 15 gm/60 ml Oral Susp ONE (19:16)
[2016-10-07 20:00] LABS: RBC URINE 2 /hpf (0-3); TRANSITIONAL EPITHIAL < 1 /hpf (0-3); URINE BACTERIA RARE (<OCC); URINE BILIRUBIN NEGATIVE (NEGATIVE); URINE BLOOD NEGATIVE (NEGATIVE); URINE COLOR Yellow (YELLOW); URINE GLUCOSE (UA) NORMAL (Normal); URINE KETONE NEGATIVE (NEGATIVE); URINE LEUKOCYTE ESTERASE NEG Leu/uL (Negative); URINE PROTEIN NEGATIVE (NEGATIVE); URINE UROBILINOGEN NORMAL mg/dL (0.2-1.0); WBC URINE 3 /hpf (0-5)
--- NOTE | 2016-10-07 20:36 | C.PDOC ---
History Of Present Illness Patient is a 86 year old female presents to the ED for evaluation after having found heart rate in the mid 30s by her physical therapist. Pt states she receives physical therapy at home secondary to spinal stenosis. In the ED, pt complaints of chronic low back pain and bilateral leg pain. Otherwise, denies any chest pain, shortness of breath, headache, dizziness, vision change, fever, chills, abdominal pain, n/v/d, bowel or bladder incontinence/retention, or any other associated symptoms at this time. Chief Complaint (Nursing): High Blood Pressure History Per: Patient History/Exam Limitations: no limitations Onset/Duration Of Symptoms: Days, Gradual Current Symptoms Are (Timing): Still Present Associated Symptoms: denies: Chest Pain, Dyspnea, Dizziness, Blurred Vision, Focal Weakness, Headache Exacerbating Factor(s): Pos: None Recent travel outside of the [place]: No Additional History Per: Patient Past Medical History Reviewed: Historical Data, Nursing Documentation, Vital Signs Vital Signs: Last Vital Signs Temp 98 F 10/07/16 23:56 Pulse 68 10/07/16 23:56 Resp 20 10/07/16 23:56 BP 175/94 H 10/07/16 23:56 Pulse Ox 98 10/07/16 23:56 - Medical History PMH: Arthritis, Gastritis, Gall Bladder Disease, HTN Denies: Chronic Kidney Disease Surgical History: Cholecystectomy Family History: States: Unknown Family Hx - Social History Hx Alcohol Use: No Hx Substance Use: No - Immunization History Hx Tetanus Toxoid Vaccination: No Hx Influenza Vaccination: Yes Hx Pneumococcal Vaccination: No Review Of Systems Except As Marked, All Systems Reviewed And Found Negative. Constitutional: Negative for: Fever, Chills Cardiovascular: Negative for: Chest Pain, Palpitations, Light Headedness Respiratory: Negative for: Cough, Shortness of Breath Gastrointestinal: Negative for: Nausea, Vomiting, Abdominal Pain, Diarrhea Genitourinary: Negative for: Dysuria, Frequency, Hematuria Musculoskeletal: Positive for: Back Pain, Leg Pain (b/l) Skin: Negative for: Rash, Bruising Neurological: Negative for: Weakness, Numbness, Headache, Dizziness Physical Exam - Physical Exam Appears: Non-toxic, No Acute Distress Skin: Normal Color, Warm, Dry Head: Atraumatic, Normacephalic Eye(s): bilateral: Normal Inspection Oral Mucosa: Moist Neck: Supple Cardiovascular: Rhythm Irregular (irregularly irregular) Respiratory: Normal Breath Sounds, No Rales, No Rhonchi, No Wheezing Gastrointestinal/Abdominal: Soft, No Tenderness Extremity: Normal ROM, No Tenderness, Pedal Edema (b/l), Capillary Refill (<2 sec.), No Deformity Extremity: Bilateral: Atraumatic, Normal Color And Temperature, Normal ROM Pulses: Left Dorsalis Pedis: Normal, Right Dorsalis Pedis: Normal Neurological/Psych: Oriented x3, Normal Speech, Normal Cognition, Normal Motor, Normal Sensation ED Course And Treatment - Laboratory Results Result Diagrams: 10/07/16 18:48 10/07/16 18:48 ECG: Interpreted By Me, Viewed By Me ECG Rhythm: Atrial Fibrillation, R BBB ECG Interpretation: No Changes From Prior Interpretation Of ECG: Left axis deviation. RBBB unchanged from prior EKG on . Rate From EC (bpm) O2 Sat by Pulse Oximetry: 95 (RA) Pulse Ox Interpretation: Normal Progress Note: Blood work, urinalysis, CXR, EKG ordered and reviewed. Case discussed with Dr. Regalado who recommended IV steroid for back pain. Case reviewed with Dr. Haynes who states he will not treat blood pressure at this time, and agrees to admit patient to telemetry. Disposition - Disposition Disposition: HOSPITALIZED Disposition Time: 20:15 Condition: STABLE - Clinical Impression Clinical Impression: Bradycadia and Hypertension, Atrial fibrillation - Scribe Statement The provider has reviewed the documentation as recorded by the Scribe Erin Buchanan All medical record entries made by the Scribe were at my direction and personally dictated by me. I have reviewed the chart and agree that the record accurately reflects my personal performance of the history, physical exam, medical decision making, and the department course for this patient. I have also personally directed, reviewed, and agree with the discharge instructions and disposition.
[2016-10-07] MEDS ORDERED: MELOXICAM 7.5MG TABLET PO PRN (20:53)
--- NOTE | 2016-10-08 08:19 | RAD ---
PROCEDURE: CHEST RADIOGRAPH, 1 VIEW HISTORY: chest pain COMPARISON: Portable chest radiograph 08/21/2016 FINDINGS: LUNGS: Body habitus limits evaluation of the left base is well as cardiomegaly. No definitive infiltrates appreciated bilaterally PLEURA: No pneumothorax bilaterally. No right pleural effusion or medium or large left pleural effusion is appreciated. No small left pleural effusion is suspected however the left base is obscured CARDIOVASCULAR: Stable cardiomegaly. No pulmonary vascular derangement identified. OSSEOUS STRUCTURES: No significant abnormalities. VISUALIZED UPPER ABDOMEN: Normal. OTHER FINDINGS: None. IMPRESSION: Stable cardiomegaly. No definitive infiltrate or pleural effusion appreciated interval however lung bases obscured by patient body habitus and cardiomegaly. No medium or large left pleural effusion.
--- NOTE | 2016-10-08 08:24 | CP.PCM.CON ---
<AKANKSHA HUSSEIN - Last Filed: 10/08/16 09:44> History of Present Illness - History of Present Illness History of Present Illness: Akanksha Hussein, PGY1, Consult Note for Dr. La: CC: Bradycardia HPI: 86F with PMH afib, chronic LBP, HTN, arthritis, sent to ED by physical therapy for asymptomatic bradycardia, HR in 30's. She c/o chronic low back and b /l leg pain. Pt goes to physical therapy for her spinal stenosis. Pt denies any lightheadedness, dizziness, syncope, headache, changes in vision, f/c/n/v/d, abdominal pain, leg swelling, bowel or bladder incontinence. In ED, pt's HR 43- 52, hypertensive 174/94, EKg shows HR 55, afib with SVR, RBBB (unchanged from prior EKG 07/2016). Pt received Lasix 20mg and Norvasc. Cardiology consulted for management of bradycardia. PMH: afib (not on anticoagulation due to fall risk), spinal stenosis, arthritis , HTN, colon cancer s/p colostomy, hx of falls, lumbar spinal radiculopathy PSH: cholecystectomy, back surgery, colostomy for colon cancer ALL: NKA FH: noncontributory SH: Lives with daughter. Denies alcohol or tobacco use. Review of Systems - Constitutional Constitutional: absent: Chills, Fever - EENT Eyes: absent: Blurred Vision, Change in Vision - Cardiovascular Cardiovascular: absent: Chest Pain at Rest, Dyspnea, Dyspnea on Exertion, Leg Edema, Lightheadedness, Palpitations, Pedal Edema, Slow Heart Rate, Syncope - Respiratory Respiratory: absent: Cough, Chest Congestion - Gastrointestinal Gastrointestinal: absent: Abdominal Pain, Bloating, Diarrhea - Genitourinary Genitourinary: absent: Difficulty Urinating, Dysuria - Musculoskeletal Musculoskeletal: absent: Back Pain, Muscle Weakness - Neurological Neurological: Frequent Falls, Radicular Pain, Weakness. absent: Loss of Vision , Syncope - Psychiatric Psychiatric: absent: Memory Loss - Hematologic/Lymphatic Hematologic: absent: Easy Bleeding Past Patient History - Infectious Disease Hx of Infectious Diseases: None - Tetanus Immunizations Tetanus Immunization: Unknown - Past Medical History & Family History Past Medical History?: No - Past Social History Smoking Status: Never Smoked - CARDIAC Hx Hypertension: Yes - PULMONARY Hx Respiratory Disorders: No - NEUROLOGICAL Hx Neurological Disorder: Yes - HEENT Hx HEENT Problems: No Other/Comment: reading glasses - RENAL Hx Chronic Kidney Disease: No - ENDOCRINE/METABOLIC Hx Endocrine Disorders: No - HEMATOLOGICAL/ONCOLOGICAL Hx Blood Disorders: No Hx Blood Transfusions: Yes - INTEGUMENTARY Hx Dermatological Problems: No - MUSCULOSKELETAL/RHEUMATOLOGICAL Hx Arthritis: Yes - GASTROINTESTINAL Hx Gall Bladder Disease: Yes Hx Gastritis: Yes - GENITOURINARY/GYNECOLOGICAL Hx Genitourinary Disorders: No - PSYCHIATRIC Hx Substance Use: No - SURGICAL HISTORY Hx Cholecystectomy: Yes - ANESTHESIA Hx Anesthesia: Yes Hx Anesthesia Reactions: No Hx Malignant Hyperthermia: No Has any member of the family had a problem w/ anesthesia?: No Meds Allergies/Adverse Reactions: Allergies Allergy/AdvReac Type Severity Reaction Status Date / Time No Known Allergies Allergy Verified 10/07/16 18:24 - Medications Medications: Current Medications Alprazolam (Xanax) 0.25 mg PO DAILY [facility] Stop: 10/15/16 10:01 Amlodipine Besylate (Norvasc) 10 mg PO DAILY [facility] Gabapentin (Neurontin) 600 mg PO TID [facility] Heparin Sodium (Porcine) (Heparin) 5,000 units SC Q8 [facility] Last Admin: 10/08/16 05:27 Dose: 5,000 units Home Med (Patient's Own Medication) 1 tab PO BID [facility] Home Med (Patient's Own Medication) 1 tab PO DAILY PRN PRN Reason: Pain, moderate (4-7) Isosorbide Mononitrate (Imdur) 30 mg PO DAILY [facility] Losartan Potassium (Cozaar) 25 mg PO BID [facility] Last Admin: 10/07/16 21:13 Dose: 25 mg Montelukast Sodium (Singulair) 10 mg PO [facility] Last Admin: 10/07/16 21:57 Dose: 10 mg Tramadol HCl (Ultram) 50 mg PO Q8 PRN PRN Reason: Pain, severe (8-10) Physical Exam - Constitutional Appears: No Acute Distress - Head Exam Head Exam: ATRAUMATIC, NORMOCEPHALIC - Eye Exam Eye Exam: PERRL - ENT Exam ENT Exam: Mucous Membranes Moist - Respiratory Exam Respiratory Exam: Clear to Auscultation Bilateral - Cardiovascular Exam Cardiovascular Exam: Bradycardia, +S1, +S2. absent: Systolic Murmur - GI/Abdominal Exam GI & Abdominal Exam: Normal Bowel Sounds, Soft. absent: Distended - Extremities Exam Extremities exam: Negative for: calf tenderness, pedal edema - Neurological Exam Neurological exam: Alert, Oriented x3 - Psychiatric Exam Psychiatric exam: Normal Mood - Skin Skin Exam: Dry, Warm Results - Vital Signs Recent Vital Signs: Last Vital Signs Temp 97.5 F L 10/08/16 04:30 Pulse 53 L 10/08/16 04:30 Resp 20 10/08/16 04:30 BP 158/79 H 10/08/16 04:30 Pulse Ox 98 10/08/16 04:30 - Labs Result Diagrams: 10/07/16 18:48 10/07/16 18:48 - EKG Data EKG Interpreted by: Other Rate: Bradycardia - EKG Data When Compared to Previous EKG: No Significant Change - Impressions Impression: afib with SVR. RBBB. Assessment & Plan - Assessment and Plan (Free Text) Assessment: 86F with PMH afib (rate controlled on toprol, no AC), HTN, chronic LBP, admitted for asymptomatic bradycardia. Cardiology consulted for further evaluation and management. Plan: Afib with SVR: - Pt has a history of afib, HTN. - On home Metoprolol succinate 50 mg PO daily and HCTZ 25 mg Po daily, no anticoagulation as pt has frequent falls. - Pt found in HR mid 30's by PT at home. - In ED, HR 43-52-60, EKG shows afib with SVR, and RBBB (unchanged from previous EKG 08/22/16). - Pt hypertensive in ED, BP 205/116. - Pt started on amlodipine 10 mg PO dialy, losartan 25 mg PO BID, and isosorbide mononitrate 30mg PO daily. - Can restart Metoprolol 25 mg PO daily for rate control of afib, hold for HR< 60 or SBP<120 - Discussed with patient regarding a pacemaker placement with Dr. La, patient understands benefits and risks. Pt refused pacemaker. Chronic LBP: - Pain control, c/w tramadol - Pt asking for dilaudid for pain management, defer to primary team. Discussed with Dr. aL. Akanksha Hussein, PGY1 - Date & Time Date: 10/08/16 Time: 09:23 <Eugenia La - Last Filed: 10/24/16 06:10> Results - Vital Signs Recent Vital Signs: Last Vital Signs Temp 97.6 F 10/14/16 07:07 Pulse 69 10/14/16 07:07 Resp 20 10/14/16 07:07 BP 105/70 10/14/16 07:07 Pulse Ox 97 10/14/16 07:07 - Labs Result Diagrams: 10/14/16 06:03 10/13/16 07:00 Attending/Attestation - Attestation I have personally seen and examined this patient.: Yes I have fully participated in the care of the patient.: Yes I have reviewed all pertinent clinical information: Yes Notes (Text): 10/24/16 06:10 may need ppm for bradycardia will follow
[2016-10-08] MEDS ORDERED: MELOXICAM 7.5MG TABLET PO PRN (09:00)
[2016-10-08] MEDS: Metoprolol Succinate 25 mg XL Tab PO SCH (10:55)
[2016-10-08] MEDS: AMITIZA 8 MCG PO SCH ×2 (10:56→17:51)
[2016-10-08] MEDS: HYDROmorphone 0.5 mg/0.5 ml ISec IVP PRN (16:05)
--- NOTE | 2016-10-09 07:11 | CP.PCM.PN ---
Subjective - Date & Time of Evaluation Date of Evaluation: 10/09/16 Time of Evaluation: 07:10 - Subjective Subjective: Pt tolerating PO no fever back pain mets Objective - Vital Signs/Intake and Output Vital Signs (last 24 hours): Temp Pulse Resp BP Pulse Ox 97.6 F 83 20 129/74 97 10/09/16 05:31 10/09/16 05:31 10/09/16 05:31 10/09/16 05:31 10/09/16 05:31 - Medications Medications: Current Medications Alprazolam (Xanax) 0.25 mg PO DAILY [facility] Stop: 10/15/16 10:01 Last Admin: 10/08/16 10:56 Dose: 0.25 mg Amlodipine Besylate (Norvasc) 10 mg PO DAILY [facility] Last Admin: 10/08/16 10:56 Dose: 10 mg Gabapentin (Neurontin) 600 mg PO TID [facility] Last Admin: 10/08/16 17:51 Dose: 600 mg Heparin Sodium (Porcine) (Heparin) 5,000 units SC Q8 [facility] Last Admin: 10/09/16 06:04 Dose: 5,000 units Home Med (Patient's Own Medication) 1 tab PO BID [facility] Last Admin: 10/08/16 17:51 Dose: 1 tab Home Med (Patient's Own Medication) 1 tab PO DAILY PRN PRN Reason: Pain, severe (8-10) Hydromorphone HCl (Dilaudid) 0.5 mg IVP Q6H PRN PRN Reason: Pain, moderate (4-7) Last Admin: 10/08/16 16:05 Dose: 0.5 mg Isosorbide Mononitrate (Imdur) 30 mg PO DAILY [facility] Last Admin: 10/08/16 10:56 Dose: 30 mg Losartan Potassium (Cozaar) 25 mg PO BID [facility] Last Admin: 10/08/16 17:51 Dose: 25 mg Metoprolol Succinate (Toprol Xl) 25 mg PO DAILY [facility] Last Admin: 10/08/16 10:55 Dose: Not Given Montelukast Sodium (Singulair) 10 mg PO HS [facility] Last Admin: 10/08/16 22:00 Dose: 10 mg Tramadol HCl (Ultram) 50 mg PO Q8 [facility] Last Admin: 10/09/16 06:02 Dose: 50 mg - Constitutional Appears: Chronically Ill - Head Exam Head Exam: NORMOCEPHALIC - Eye Exam Eye Exam: Normal appearance - ENT Exam ENT Exam: Mucous Membranes Moist - Respiratory Exam Respiratory Exam: Wheezes - Cardiovascular Exam Cardiovascular Exam: Irregular Rhythm, Murmur - GI/Abdominal Exam GI & Abdominal Exam: Normal Bowel Sounds - Exam External exam: NORMAL EXTERNAL EXAM - Extremities Exam Extremities Exam: Normal Inspection - Neurological Exam Neurological Exam: Alert, Awake - Psychiatric Exam Psychiatric exam: Normal Affect - Skin Skin Exam: Warm Assessment and Plan (1) Bradycardia Assessment & Plan: pt with mets asa for a/c heart rate 86 may need ppm Status: Acute
[2016-10-09] MEDS: AMITIZA 8 MCG PO SCH ×2 (10:09→18:40)
[2016-10-09] MEDS: Metoprolol Succinate 25 mg XL Tab PO SCH (11:00)
--- NOTE | 2016-10-09 15:56 | CP.PCM.CON ---
History of Present Illness - History of Present Illness History of Present Illness: INFECTIOUS DISEASE/MED CONSULTATION ALFONSO ALEX MD, FACP 6T [id number] 10/09/2016 CHART REVIEWED PT EXAMINED CASE DISCUSSED This Patient is a 86 year old German/Hebrew speaking female, who presents to the ED for an evaluation after having her heart rate found in the mid 30s by her physical therapist at home. Pt states she receives physical therapy at home secondary to spinal stenosis. In the ED, pt complaints of persistent moderately severe chronic low back pain and bilateral leg pain. Otherwise, denies any chest pain, shortness of breath, headache, dizziness, vision change, fever, chills, abdominal pain, n/v/d, bowel or bladder incontinence/retention, or any other associated symptoms at this time. Chief Complaint (Nursing): High Blood Pressure and low pulse rate History Per: Patient and daughter in law. History/Exam Limitations: no limitations Onset/Duration Of Symptoms: Days, Gradual Current Symptoms Are (Timing): Still Present Associated Symptoms: denies: Chest Pain, Dyspnea, Dizziness, Blurred Vision, Focal Weakness, Headache Exacerbating Factor(s): Pos: None Recent travel outside of the [place]: No Additional History Per: Patient Past Medical History Reviewed: Historical Data, Nursing Documentation, Vital Signs Vital Signs: Last Vital Signs Temp 98 F 10/07/16 23:56 Pulse 68 10/07/16 23:56 Resp 20 10/07/16 23:56 BP 175/94 H 10/07/16 23:56 Pulse Ox 98 10/07/16 23:56 - Medical History PMH: Arthritis, Gastritis, Gall Bladder Disease, HTN Denies: Chronic Kidney Disease Surgical History: Cholecystectomy, colon surgery for cancer many years ago. Family History: States: Unknown Family Hx - Social History Hx Alcohol Use: No Hx Substance Use: No - Immunization History Hx Tetanus Toxoid Vaccination: No Hx Influenza Vaccination: Yes Hx Pneumococcal Vaccination: No Review Of Systems Except As Marked, All Systems Reviewed And Found Negative. Constitutional: Negative for: Fever, Chills Cardiovascular: Negative for: Chest Pain, Palpitations, Light Headedness Respiratory: Negative for: Cough, Shortness of Breath Gastrointestinal: Negative for: Nausea, Vomiting, Abdominal Pain, Diarrhea Genitourinary: Negative for: Dysuria, Frequency, Hematuria Musculoskeletal: Positive for: Back Pain, Leg Pain (b/l) Skin: Negative for: Rash, Bruising Neurological: Negative for: Weakness, Numbness, Headache, Dizziness Physical Exam - Physical Exam Appears: Non-toxic, No Acute Distress, except her chronic back pain. Skin: Normal Color, Warm, Dry Head: Atraumatic, Normacephalic Eye(s): bilateral: Normal Inspection Oral Mucosa: Moist Neck: Supple Cardiovascular: Rhythm Irregular (irregularly irregular) Respiratory: Normal Breath Sounds, No Rales, No Rhonchi, No Wheezing Gastrointestinal/Abdominal: Soft, No Tenderness Extremity: Normal ROM, No Tenderness, Pedal Edema (b/l), Capillary Refill (<2 sec.), No Deformity Extremity: Bilateral: Atraumatic, Normal Color And Temperature, Normal ROM Pulses: Left Dorsalis Pedis: Normal, Right Dorsalis Pedis: Normal Neurological/Psych: Oriented x3, Normal Speech, Normal Cognition, Normal Motor, Normal Sensation IMPRESSION: BRADYCARDIA, EVEN WITH EXERCISE AND PHYSIOTHERAPY OBESITY HTN SEVERE SPINAL STENOSIS COLOSTOMY FUNCTIONING(SX AT [facility]) CARDIOLOGY CONSULT, SAME ONE WHO SAW HER ON HER LAST ADMISSION HOLD [employer] STERO[employer] PULSE DOSE FOR HER SEVERE SPINAL STENOSIS DISCUSSED WITH ER DOCTOR AND STAFF. THANK YOU ALFONSO ALEX MD, FACP Review of Systems - Constitutional Constitutional: Malaise, Weakness. absent: Fever, Weight Loss - EENT Eyes: absent: As Per HPI, Blind Spots, Blurred Vision, Change in Vision, Decreased Night Vision, Diplopia, Discharge, Dry Eye, Exophthalmos, Floaters, Irritation, Itchy Eyes, Loss of Peripheral Vision, Pain, Photophobia, Requires Corrective Lenses, Sees Flashes, Spots in Vision, Tunnel Vision, Other Visual Disturbances, Loss of Vision, Other Ears: Decreased Hearing Nose/Mouth/Throat: absent: As Per HPI, Epistaxis, Nasal Congestion, Nasal Discharge, Nasal Obstruction, Nasal Trauma, Nose Pain, Post Nasal Drip, Sinus Pain, Sinus Pressure, Bleeding Gums, Change in Voice, Dental Pain, Dry Mouth, Dysphagia, Halitosis, Hoarsness, Lip Swelling, Mouth Lesions, Mouth Pain, Odynophagia, Sore Throat, Throat Swelling, Tongue Swelling, Facial Pain, Neck Pain, Neck Mass, Other - Cardiovascular Cardiovascular: Dyspnea on Exertion, Irregular Heart Rhythm, Pedal Edema, Slow Heart Rate. absent: Chest Pain, Diaphoresis - Respiratory Respiratory: absent: Hemoptysis, Stridor, Change in Mucous Color - Gastrointestinal Gastrointestinal: Other (COLOSTOMY). absent: Cramping, Diarrhea, Dysphagia, Hematochezia, Temesmus, Vomiting - Genitourinary Genitourinary: absent: As Per HPI, Change in Urinary Stream, Difficulty Urinating, Dysuria, Flank Pain, Hematuria, Pyuria, Nocturia, Urinary Incontinence, Urinary Frequency, Urinary Hesitance, Urinary Urgency, Voiding Freq/Small Amts, Freq UTI, Hx Renal/Bladder Calculi, Hx /Renal Surgery, Bladder Distension, Other - Musculoskeletal Musculoskeletal: Arthralgias, Muscle Weakness, Myalgias, Stiffness, Tingling - Integumentary Integumentary: Dry Skin, Swelling - Neurological Neurological: Abnormal Gait, Abnormal Hearing, Weakness. absent: Focal Weakness , Loss of Vision - Psychiatric Psychiatric: Anxiety - Hematologic/Lymphatic Hematologic: Easy Bruising Past Patient History - Infectious Disease Hx of Infectious Diseases: None - Tetanus Immunizations Tetanus Immunization: Unknown - Past Medical History & Family History Past Medical History?: No - Past Social History Smoking Status: Never Smoked Chewing Tobacco Use: No Cigar Use: No Alcohol: Occasional Drugs: Denies Home Situation {Lives}: With Family Domestic Violence: Negative - CARDIAC Hx Cardiac Disorders: Yes (SLOW ATRIAL FIBRILLATION) Hx Atrial Fibrillation: Yes Hx Hypertension: Yes - PULMONARY Hx Respiratory Disorders: No - NEUROLOGICAL Hx Neurological Disorder: Yes Other/Comment: SPINAL STENOSIS - HEENT Hx HEENT Problems: No Other/Comment: reading glasses - RENAL Hx Chronic Kidney Disease: No - ENDOCRINE/METABOLIC Hx Endocrine Disorders: No - HEMATOLOGICAL/ONCOLOGICAL Hx Blood Disorders: No Hx Blood Transfusions: Yes - INTEGUMENTARY Hx Dermatological Problems: No - MUSCULOSKELETAL/RHEUMATOLOGICAL Hx Musculoskeletal Disorders: Yes Hx Arthritis: Yes Hx Degenerative Joint Disease: Yes Hx Osteoporosis: Yes ((?)) Hx Unsteady Gait: Yes - GASTROINTESTINAL Hx Gastrointestinal Disorders: No Hx Colostomy: Yes Hx Gall Bladder Disease: Yes Hx Gastritis: Yes - GENITOURINARY/GYNECOLOGICAL Hx Genitourinary Disorders: No - PSYCHIATRIC Hx Anxiety: Yes (REACTIVE) Hx Substance Use: No - SURGICAL HISTORY Hx Cholecystectomy: Yes Hx Hysterectomy: Yes Other/Comment: S/P COLOSTOMY - ANESTHESIA Hx Anesthesia: Yes Hx Anesthesia Reactions: No Hx Malignant Hyperthermia: No Has any member of the family had a problem w/ anesthesia?: No Meds Home Medications: Home Medication List Medication Instructions Recorded Confirmed Type Cephalexin [cephalexin] 250 mg PO TID #21 cap 10/14/16 Rx Allergies/Adverse Reactions: Allergies Allergy/AdvReac Type Severity Reaction Status Date / Time No Known Allergies Allergy Verified 10/07/16 18:24 - Medications Medications: Current Medications Alprazolam (Xanax) 0.25 mg PO DAILY [facility] Stop: 10/15/16 10:01 Last Admin: 10/09/16 10:09 Dose: Not Given Amlodipine Besylate (Norvasc) 10 mg PO DAILY [facility] Last Admin: 10/09/16 10:09 Dose: 10 mg Gabapentin (Neurontin) 600 mg PO TID [facility] Last Admin: 10/09/16 14:24 Dose: 600 mg Heparin Sodium (Porcine) (Heparin) 5,000 units SC Q8 [facility] Last Admin: 10/09/16 14:26 Dose: 5,000 units Home Med (Patient's Own Medication) 1 tab PO BID [facility] Last Admin: 10/09/16 10:09 Dose: 1 tab Home Med (Patient's Own Medication) 1 tab PO DAILY PRN PRN Reason: Pain, severe (8-10) Hydromorphone HCl (Dilaudid) 0.5 mg IVP Q6H PRN PRN Reason: Pain, moderate (4-7) Last Admin: 10/08/16 16:05 Dose: 0.5 mg Isosorbide Mononitrate (Imdur) 30 mg PO DAILY [facility] Last Admin: 10/09/16 10:09 Dose: 30 mg Losartan Potassium (Cozaar) 25 mg PO BID [facility] Last Admin: 10/09/16 10:08 Dose: 25 mg Metoprolol Succinate (Toprol Xl) 25 mg PO DAILY [facility] Last Admin: 10/09/16 11:00 Dose: Not Given Montelukast Sodium (Singulair) 10 mg PO HS [facility] Last Admin: 10/08/16 22:00 Dose: 10 mg Tramadol HCl (Ultram) 50 mg PO Q8 [facility] Last Admin: 10/09/16 14:24 Dose: 50 mg Physical Exam - Constitutional Appears: Non-toxic - Head Exam Head Exam: ATRAUMATIC, NORMOCEPHALIC - Eye Exam Eye Exam: Normal appearance - ENT Exam ENT Exam: Mucous Membranes Moist - Neck Exam Neck exam: Positive for: Normal Inspection - Respiratory Exam Respiratory Exam: Clear to Auscultation Bilateral, NORMAL BREATHING PATTERN - Cardiovascular Exam Cardiovascular Exam: Bradycardia - GI/Abdominal Exam GI & Abdominal Exam: Normal Bowel Sounds, Soft Additional comments: COLOSTOMY - Rectal Exam Rectal Exam: Deferred - Extremities Exam Extremities exam: Positive for: normal inspection - Back Exam Back exam: muscle spasm, NORMAL INSPECTION - Neurological Exam Neurological exam: Alert, Oriented x3 - Psychiatric Exam Psychiatric exam: Normal Affect, Normal Mood - Skin Skin Exam: Warm Results - Vital Signs Recent Vital Signs: Last Vital Signs Temp 98.2 F 10/09/16 12:41 Pulse 75 10/09/16 12:41 Resp 20 10/09/16 12:41 BP 109/54 L 10/09/16 12:41 Pulse Ox 97 10/09/16 12:41 - Labs Result Diagrams: 10/14/16 06:03 10/13/16 07:00 - EKG Data Rate: Bradycardia Assessment & Plan (1) Atrial fibrillation Status: Chronic Priority: Medium Comment: SLOW ATRIAL FIB. FOR PACEMAKER INSERTION (2) Lumbosacral stenosis Status: Acute Priority: High (3) Colon cancer Status: Resolved (4) Obesity Status: Chronic Priority: Medium
[2016-10-10] MEDS: HYDROmorphone 0.5 mg/0.5 ml ISec IVP PRN (02:17)
--- NOTE | 2016-10-10 07:45 | CP.PCM.PN ---
Subjective - Date & Time of Evaluation Date of Evaluation: 10/10/16 Time of Evaluation: 07:45 - Subjective Subjective: heat rate sti;; above 60 no cp tolerating po Objective - Vital Signs/Intake and Output Vital Signs (last 24 hours): Temp Pulse Resp BP Pulse Ox 98.4 F 70 20 137/81 94 L 10/10/16 04:20 10/10/16 04:27 10/10/16 04:20 10/10/16 04:20 10/10/16 00:16 Intake and Output: 10/10/16 10/10/16 06:59 18:59 Intake Total 440 Balance 440 - Medications Medications: Current Medications Alprazolam (Xanax) 0.25 mg PO DAILY [facility] Stop: 10/15/16 10:01 Last Admin: 10/09/16 10:09 Dose: Not Given Amlodipine Besylate (Norvasc) 10 mg PO DAILY [facility] Last Admin: 10/09/16 10:09 Dose: 10 mg Gabapentin (Neurontin) 600 mg PO TID [facility] Last Admin: 10/09/16 18:41 Dose: 600 mg Heparin Sodium (Porcine) (Heparin) 5,000 units SC Q8 [facility] Last Admin: 10/10/16 05:51 Dose: 5,000 units Home Med (Patient's Own Medication) 1 tab PO BID [facility] Last Admin: 10/09/16 18:40 Dose: 1 tab Home Med (Patient's Own Medication) 1 tab PO DAILY PRN PRN Reason: Pain, severe (8-10) Hydromorphone HCl (Dilaudid) 0.5 mg IVP Q6H PRN PRN Reason: Pain, moderate (4-7) Last Admin: 10/10/16 02:17 Dose: 0.5 mg Isosorbide Mononitrate (Imdur) 30 mg PO DAILY [facility] Last Admin: 10/09/16 10:09 Dose: 30 mg Losartan Potassium (Cozaar) 25 mg PO BID [facility] Last Admin: 10/09/16 18:43 Dose: 25 mg Methylprednisolone (Solu-Medrol) 125 mg IV Q12 [facility] Last Admin: 10/10/16 00:10 Dose: 125 mg Metoprolol Succinate (Toprol Xl) 25 mg PO DAILY [facility] Last Admin: 10/09/16 11:00 Dose: Not Given Montelukast Sodium (Singulair) 10 mg PO HS [facility] Last Admin: 10/09/16 22:05 Dose: 10 mg Tramadol HCl (Ultram) 50 mg PO Q8 [facility] Last Admin: 10/10/16 05:54 Dose: 50 mg - Constitutional Appears: Well - Head Exam Head Exam: ATRAUMATIC - Eye Exam Eye Exam: Normal appearance - ENT Exam ENT Exam: Mucous Membranes Moist - Respiratory Exam Respiratory Exam: Clear to Ausculation Bilateral - Cardiovascular Exam Cardiovascular Exam: Diastolic murmur - GI/Abdominal Exam GI & Abdominal Exam: Normal Bowel Sounds - Exam External exam: NORMAL EXTERNAL EXAM - Extremities Exam Extremities Exam: absent: Calf Tenderness - Neurological Exam Neurological Exam: Alert, Awake - Psychiatric Exam Psychiatric exam: Normal Affect - Skin Skin Exam: Warm Assessment and Plan (1) Bradycardia Assessment & Plan: Pt kasia at times may need ppm single chamber also to help treat hypertention Status: Acute
[2016-10-10] MEDS: AMITIZA 8 MCG PO SCH ×2 (09:35→18:04)
[2016-10-10] MEDS: Metoprolol Succinate 25 mg XL Tab PO SCH (11:00)
--- NOTE | 2016-10-11 09:52 | CP.PCM.PN ---
Subjective - Date & Time of Evaluation Date of Evaluation: 10/11/16 Time of Evaluation: 09:52 - Subjective Subjective: pt tolerating po still with back pain controlled with tramadol Objective - Vital Signs/Intake and Output Vital Signs (last 24 hours): Temp Pulse Resp BP Pulse Ox 98.3 F 70 18 147/79 97 10/11/16 08:17 10/11/16 08:25 10/11/16 08:17 10/11/16 08:17 10/11/16 08:17 - Medications Medications: Current Medications Alprazolam (Xanax) 0.25 mg PO DAILY [facility] Stop: 10/15/16 10:01 Last Admin: 10/10/16 09:35 Dose: 0.25 mg Amlodipine Besylate (Norvasc) 10 mg PO DAILY [facility] Last Admin: 10/10/16 09:35 Dose: 10 mg Gabapentin (Neurontin) 600 mg PO TID [facility] Last Admin: 10/10/16 18:03 Dose: 600 mg Home Med (Patient's Own Medication) 1 tab PO BID [facility] Last Admin: 10/10/16 18:04 Dose: 1 tab Home Med (Patient's Own Medication) 1 tab PO DAILY PRN PRN Reason: Pain, severe (8-10) Hydromorphone HCl (Dilaudid) 0.5 mg IVP Q6H PRN PRN Reason: Pain, moderate (4-7) Last Admin: 10/10/16 02:17 Dose: 0.5 mg Isosorbide Mononitrate (Imdur) 30 mg PO DAILY [facility] Last Admin: 10/10/16 09:35 Dose: 30 mg Losartan Potassium (Cozaar) 25 mg PO BID [facility] Last Admin: 10/10/16 18:03 Dose: 25 mg Methylprednisolone (Solu-Medrol) 125 mg IV Q12 [facility] Last Admin: 10/10/16 21:45 Dose: 125 mg Metoprolol Succinate (Toprol Xl) 25 mg PO DAILY [facility] Last Admin: 10/10/16 11:00 Dose: Not Given Montelukast Sodium (Singulair) 10 mg PO HS [facility] Last Admin: 10/10/16 21:45 Dose: 10 mg Tramadol HCl (Ultram) 50 mg PO Q8 [facility] Last Admin: 10/11/16 06:05 Dose: Not Given - Constitutional Appears: Well - Head Exam Head Exam: ATRAUMATIC - Eye Exam Eye Exam: Normal appearance - ENT Exam ENT Exam: Mucous Membranes Moist - Respiratory Exam Respiratory Exam: NORMAL BREATHING PATTERN - Cardiovascular Exam Cardiovascular Exam: REGULAR RHYTHM, Murmur - GI/Abdominal Exam GI & Abdominal Exam: Soft - Exam External exam: NORMAL EXTERNAL EXAM - Extremities Exam Extremities Exam: absent: Calf Tenderness - Neurological Exam Neurological Exam: Alert, Awake - Psychiatric Exam Psychiatric exam: Normal Affect, Normal Mood - Skin Skin Exam: Normal Color, Warm Assessment and Plan (1) Bradycardia Assessment & Plan: pt refused ppm past now will go ahead after speaking with family Status: Acute
[2016-10-11] MEDS: Metoprolol Succinate 25 mg XL Tab PO SCH (11:18)
[2016-10-11] MEDS: AMITIZA 8 MCG PO SCH ×2 (11:18→20:49)
[2016-10-11 13:19] LABS: MEAN PLATELET VOLUME 8.3 fL (7.2-11.7)
[2016-10-11 13:29] LABS: HEMATOCRIT 40.5 % (34.0-47.0); MEAN CELL VOLUME 78.9 fL (81.0-99.0); MEAN CORPUSCULAR HEMOGLOBIN 24.6 pg (27.0-31.0); MEAN CORPUSCULAR HGB CONC 31.2 g/dL (33.0-37.0); RED CELL DISTRIBUTION WIDTH 14.7 % (11.5-14.5)
[2016-10-11 13:31] LABS: WHITE BLOOD COUNT 14.9 K/uL (4.8-10.8)
[2016-10-11 13:32] LABS: CHLORIDE 98 mmol/L (98-107); POTASSIUM 4.8 mmol/L (3.6-5.2); SODIUM 137 mmol/L (132-148)
[2016-10-11 13:35] LABS: GFR AFRICAN-AMERICAN > 60
[2016-10-11 13:36] LABS: BLOOD UREA NITROGEN 25 mg/dL (7-17); CALCIUM 9.8 mg/dl (8.6-10.4); CARBON DIOXIDE 27 mmol/L (22-30); GLUCOSE,RANDOM 92 mg/dL (65-105)
[2016-10-11 15:53] VITALS: RESP 20
[2016-10-11] MEDS ORDERED: Bupivacaine HCl 0.25% PF (10 ml) Inj ONE (15:56)
[2016-10-11] MEDS ORDERED: Lidocaine 1% Inj (20ml) ONE (15:57)
[2016-10-11] MEDS ORDERED: ceFAZolin IV 1 gm in Dextrose 1 GM/50 ML BAG IVPB ONE (16:05)
[2016-10-11] MEDS ORDERED: Bacitracin 50,000 UNIT in Sodium Chloride 0.9% Irrig 1,000 ML IR SCH (16:19)
[2016-10-11] MEDS ORDERED: Lactated Ringer's 1,000 ML IV ONE (16:45)
[2016-10-11] MEDS ORDERED: Propofol 10 mg/ml Inj (20 ML) ONE (16:49)
[2016-10-11] MEDS ORDERED: Iohexol 240 (50 ml) ONE (17:30)
--- NOTE | 2016-10-11 20:19 | RAD ---
INTRAOPERATIVE FLUOROSCOPY HISTORY: Pacemaker insertion. Bradycardia. TECHNIQUE/FINDINGS: Fluoroscopic guidance was provided by Radiology department. Please see operative report for full details. Five images were provided. Total fluoroscopy time was 316.4 seconds. IMPRESSION: As above
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
--- NOTE | 2016-10-11 20:36 | CP.PCM.PN ---
Subjective - Date & Time of Evaluation Date of Evaluation: 10/09/16 Time of Evaluation: 20:36 - Subjective Subjective: Patient now feeling okay. No chest pain. Pain in the lower back noted. On pain medication. Spoke to the patient's family. Agreeing for pacemaker. 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 Will be scheduled on Tuesday Objective - Vital Signs/Intake and Output Vital Signs (last 24 hours): Temp Pulse Resp BP Pulse Ox 98.1 F 85 20 170/90 H 96 10/11/16 19:58 10/11/16 19:58 10/11/16 19:58 10/11/16 19:58 10/11/16 19:58 - Medications Medications: Current Medications Alprazolam (Xanax) 0.25 mg PO DAILY [facility] Stop: 10/15/16 10:01 Last Admin: 10/11/16 11:18 Dose: Not Given Amlodipine Besylate (Norvasc) 10 mg PO DAILY [facility] Last Admin: 10/11/16 11:17 Dose: Not Given Gabapentin (Neurontin) 600 mg PO TID [facility] Last Admin: 10/11/16 13:55 Dose: Not Given Home Med (Patient's Own Medication) 1 tab PO BID [facility] Last Admin: 10/11/16 11:18 Dose: Not Given Home Med (Patient's Own Medication) 1 tab PO DAILY PRN PRN Reason: Pain, severe (8-10) Hydromorphone HCl (Dilaudid) 0.5 mg IVP Q6H PRN PRN Reason: Pain, moderate (4-7) Last Admin: 10/10/16 02:17 Dose: 0.5 mg Cefazolin Sodium/Dextrose (Ancef Iv 1 Gm Duplex) 1 gm in 50 mls @ 100 mls/hr IVPB Q8H [facility] Isosorbide Mononitrate (Imdur) 30 mg PO DAILY [facility] Last Admin: 10/11/16 11:17 Dose: Not Given Losartan Potassium (Cozaar) 25 mg PO BID [facility] Last Admin: 10/11/16 11:17 Dose: Not Given Methylprednisolone (Solu-Medrol) 125 mg IV Q12 [facility] Last Admin: 10/11/16 11:00 Dose: 125 mg Metoprolol Succinate (Toprol Xl) 25 mg PO DAILY [facility] Last Admin: 10/11/16 11:18 Dose: Not Given Montelukast Sodium (Singulair) 10 mg PO HS [facility] Last Admin: 10/10/16 21:45 Dose: 10 mg Tramadol HCl (Ultram) 50 mg PO Q8 [facility] Last Admin: 10/11/16 13:55 Dose: Not Given - Labs Labs: 10/11/16 13:00 10/11/16 13:00
--- NOTE | 2016-10-11 20:37 | CP.PCM.PN ---
Subjective - Date & Time of Evaluation Date of Evaluation: 10/11/16 Time of Evaluation: 20:37 - Subjective Subjective: had a pacemaker today. So for stable. Chest x-ray normal. Continue the current treatment. We will follow the patient Objective - Vital Signs/Intake and Output Vital Signs (last 24 hours): Temp Pulse Resp BP Pulse Ox 98.1 F 85 20 170/90 H 96 10/11/16 19:58 10/11/16 19:58 10/11/16 19:58 10/11/16 19:58 10/11/16 19:58 - Medications Medications: Current Medications Alprazolam (Xanax) 0.25 mg PO DAILY [facility] Stop: 10/15/16 10:01 Last Admin: 10/11/16 11:18 Dose: Not Given Amlodipine Besylate (Norvasc) 10 mg PO DAILY [facility] Last Admin: 10/11/16 11:17 Dose: Not Given Gabapentin (Neurontin) 600 mg PO TID [facility] Last Admin: 10/11/16 13:55 Dose: Not Given Home Med (Patient's Own Medication) 1 tab PO BID [facility] Last Admin: 10/11/16 11:18 Dose: Not Given Home Med (Patient's Own Medication) 1 tab PO DAILY PRN PRN Reason: Pain, severe (8-10) Hydromorphone HCl (Dilaudid) 0.5 mg IVP Q6H PRN PRN Reason: Pain, moderate (4-7) Last Admin: 10/10/16 02:17 Dose: 0.5 mg Cefazolin Sodium/Dextrose (Ancef Iv 1 Gm Duplex) 1 gm in 50 mls @ 100 mls/hr IVPB Q8H [facility] Isosorbide Mononitrate (Imdur) 30 mg PO DAILY [facility] Last Admin: 10/11/16 11:17 Dose: Not Given Losartan Potassium (Cozaar) 25 mg PO BID [facility] Last Admin: 10/11/16 11:17 Dose: Not Given Methylprednisolone (Solu-Medrol) 125 mg IV Q12 [facility] Last Admin: 10/11/16 11:00 Dose: 125 mg Metoprolol Succinate (Toprol Xl) 25 mg PO DAILY [facility] Last Admin: 10/11/16 11:18 Dose: Not Given Montelukast Sodium (Singulair) 10 mg PO HS [facility] Last Admin: 10/10/16 21:45 Dose: 10 mg Tramadol HCl (Ultram) 50 mg PO Q8 [facility] Last Admin: 10/11/16 13:55 Dose: Not Given - Labs Labs: 10/11/16 13:00 10/11/16 13:00
--- NOTE | 2016-10-11 20:37 | CP.PCM.PN ---
Subjective - Date & Time of Evaluation Date of Evaluation: 10/10/16 Time of Evaluation: 20:37 - Subjective Subjective: Patient is currently doing okay. No chest pain. No nausea vomiting. We'll be planning for pacemaker in the morning. Objective - Vital Signs/Intake and Output Vital Signs (last 24 hours): Temp Pulse Resp BP Pulse Ox 98.1 F 85 20 170/90 H 96 10/11/16 19:58 10/11/16 19:58 10/11/16 19:58 10/11/16 19:58 10/11/16 19:58 - Medications Medications: Current Medications Alprazolam (Xanax) 0.25 mg PO DAILY [facility] Stop: 10/15/16 10:01 Last Admin: 10/11/16 11:18 Dose: Not Given Amlodipine Besylate (Norvasc) 10 mg PO DAILY [facility] Last Admin: 10/11/16 11:17 Dose: Not Given Gabapentin (Neurontin) 600 mg PO TID [facility] Last Admin: 10/11/16 13:55 Dose: Not Given Home Med (Patient's Own Medication) 1 tab PO BID [facility] Last Admin: 10/11/16 11:18 Dose: Not Given Home Med (Patient's Own Medication) 1 tab PO DAILY PRN PRN Reason: Pain, severe (8-10) Hydromorphone HCl (Dilaudid) 0.5 mg IVP Q6H PRN PRN Reason: Pain, moderate (4-7) Last Admin: 10/10/16 02:17 Dose: 0.5 mg Cefazolin Sodium/Dextrose (Ancef Iv 1 Gm Duplex) 1 gm in 50 mls @ 100 mls/hr IVPB Q8H [facility] Isosorbide Mononitrate (Imdur) 30 mg PO DAILY [facility] Last Admin: 10/11/16 11:17 Dose: Not Given Losartan Potassium (Cozaar) 25 mg PO BID [facility] Last Admin: 10/11/16 11:17 Dose: Not Given Methylprednisolone (Solu-Medrol) 125 mg IV Q12 [facility] Last Admin: 10/11/16 11:00 Dose: 125 mg Metoprolol Succinate (Toprol Xl) 25 mg PO DAILY [facility] Last Admin: 10/11/16 11:18 Dose: Not Given Montelukast Sodium (Singulair) 10 mg PO HS [facility] Last Admin: 10/10/16 21:45 Dose: 10 mg Tramadol HCl (Ultram) 50 mg PO Q8 [facility] Last Admin: 10/11/16 13:55 Dose: Not Given - Labs Labs: 10/11/16 13:00 10/11/16 13:00
[2016-10-11] MEDS: HYDROmorphone 0.5 mg/0.5 ml ISec IVP PRN ×2 (23:51→23:54)
[2016-10-11] MEDS: ceFAZolin IV 1 gm in Dextrose 1 GM/50 ML BAG IVPB SCH (23:53)
--- NOTE | 2016-10-11 23:58 | CP.PCM.PN ---
Subjective - Date & Time of Evaluation Date of Evaluation: 10/11/16 Time of Evaluation: 20:00 - Subjective Subjective: INFECTIOUS DISEASE MEDICAL FOLLOW UP ALFONSO ALEX MD, FACP 6T 651-B 10/11/2016 PT IS S/P PACEMAKER INSERTION. CLINICALLY ASYMPTOMATIC, LESS BACK PAIN WITH STEROID PULSE DOSAGE. HER LAST DOSE OF STEROIDS SHOULD BE TONIGHT AT 9 PM'BETSY. WATCH HER PACEMAKER SITE CLOSELY. HER WBC IS SECONDARY TO HER STEROID TREATMENT. CONTINUE HER OUTPATIENT TREATMENT WHEN SHE GOES HOME. THANK YOU. Objective - Vital Signs/Intake and Output Vital Signs (last 24 hours): Temp Pulse Resp BP Pulse Ox 98.1 F 85 20 170/90 H 96 10/11/16 19:58 10/11/16 19:58 10/11/16 19:58 10/11/16 19:58 10/11/16 19:58 - Medications Medications: Current Medications Alprazolam (Xanax) 0.25 mg PO DAILY [facility] Stop: 10/15/16 10:01 Last Admin: 10/11/16 11:18 Dose: Not Given Amlodipine Besylate (Norvasc) 10 mg PO DAILY [facility] Last Admin: 10/11/16 11:17 Dose: Not Given Gabapentin (Neurontin) 600 mg PO TID [facility] Last Admin: 10/11/16 20:51 Dose: 600 mg Home Med (Patient's Own Medication) 1 tab PO BID [facility] Last Admin: 10/11/16 20:49 Dose: 1 tab Home Med (Patient's Own Medication) 1 tab PO DAILY PRN PRN Reason: Pain, severe (8-10) Hydromorphone HCl (Dilaudid) 0.5 mg IVP Q6H PRN PRN Reason: Pain, moderate (4-7) Cefazolin Sodium/Dextrose (Ancef Iv 1 Gm Duplex) 1 gm in 50 mls @ 100 mls/hr IVPB Q8H [facility] Isosorbide Mononitrate (Imdur) 30 mg PO DAILY [facility] Last Admin: 10/11/16 11:17 Dose: Not Given Losartan Potassium (Cozaar) 25 mg PO BID [facility] Last Admin: 10/11/16 20:48 Dose: 25 mg Methylprednisolone (Solu-Medrol) 125 mg IV Q12 [facility] Last Admin: 10/11/16 21:08 Dose: 125 mg Metoprolol Succinate (Toprol Xl) 25 mg PO DAILY [facility] Last Admin: 10/11/16 11:18 Dose: Not Given Montelukast Sodium (Singulair) 10 mg PO HS [facility] Last Admin: 10/11/16 21:07 Dose: 10 mg Tramadol HCl (Ultram) 50 mg PO Q8 [facility] Last Admin: 10/11/16 21:07 Dose: 50 mg - Labs Labs: 10/11/16 13:00 10/11/16 13:00 - Constitutional Appears: Non-toxic, No Acute Distress - Head Exam Head Exam: ATRAUMATIC, NORMAL INSPECTION - Eye Exam Eye Exam: Normal appearance - ENT Exam ENT Exam: Mucous Membranes Moist - Neck Exam Neck Exam: Normal Inspection - Respiratory Exam Respiratory Exam: Chest Wall Tenderness, Clear to Ausculation Bilateral, NORMAL BREATHING PATTERN - Cardiovascular Exam Cardiovascular Exam: REGULAR RHYTHM - GI/Abdominal Exam GI & Abdominal Exam: Normal Bowel Sounds Additional comments: COLOSTOMY FUNCTIONING - Back Exam Back Exam: NORMAL INSPECTION - Neurological Exam Neurological Exam: Alert, Awake - Psychiatric Exam Psychiatric exam: Anxious, Normal Affect - Skin Skin Exam: Dry, Warm Assessment and Plan (1) Atrial fibrillation Status: Chronic (2) Lumbosacral stenosis Status: Acute (3) Colon cancer Status: Resolved (4) Obesity Status: Chronic (5) Bradycardia Assessment & Plan: S/P SLOW ATRIAL FIB TO BRADYCARDIA, NOW S/P PACEMAKER. Status: Acute
--- NOTE | 2016-10-12 05:36 | OP ---
PROCEDURE DATE: 10/11/2016 PREOPERATIVE DIAGNOSIS: Lack of venous access. POSTOPERATIVE DIAGNOSIS: Lack of venous access. PROCEDURE CARRIED OUT: Placement of vascular access for subclavian. DESCRIPTION OF PROCEDURE: The patient was given local anesthesia using ultrasound guidance. We were unsuccessful locating the subclavian vein and did an anatomic puncture using micropuncture technique. This went directly into the region and we are able to go through the tortuosity of the superior vena cava innominate vein on the left side which was quite tortuous and eventually needs a *------* which Dr. La will place. Mick Desouza Jr., MD
[2016-10-12] MEDS: ceFAZolin IV 1 gm in Dextrose 1 GM/50 ML BAG IVPB SCH ×3 (07:03→23:48)
[2016-10-12] MEDS: AMITIZA 8 MCG PO SCH ×2 (09:29→18:39)
[2016-10-12] MEDS: Metoprolol Succinate 25 mg XL Tab PO SCH (09:29)
--- NOTE | 2016-10-12 11:06 | RAD ---
HISTORY: Postop. COMPARISON: 10/07/2016. FINDINGS: LUNGS: No active pulmonary disease. PLEURA: No significant pleural effusion identified, no pneumothorax apparent. CARDIOVASCULAR: Cardiomegaly. No evidence of acute, significant cardiovascular disease. Position/ configuration of pacemaker Satisfactory. OSSEOUS STRUCTURES: No significant abnormalities. VISUALIZED UPPER ABDOMEN: Normal. OTHER FINDINGS: None. IMPRESSION: No active disease. No significant interval change compared to the prior examination(s).
[2016-10-12 14:03] LABS: BASO % 0.2 % (0.0-2.0); HEMATOCRIT 36.1 % (34.0-47.0); LYMPH # 1.4 K/uL (1.0-4.3); MEAN CORPUSCULAR HEMOGLOBIN 25.1 pg (27.0-31.0); MEAN CORPUSCULAR HGB CONC 32.2 g/dL (33.0-37.0); MEAN PLATELET VOLUME 8.5 fL (7.2-11.7); MONO # 1.6 K/uL (0.0-0.8); MONO % 10.1 % (0.0-10.0); NRBC % 0.1 % (0.0-2.0); PLATELET COUNT 213 K/uL (130-400); RED CELL DISTRIBUTION WIDTH 14.4 % (11.5-14.5); WHITE BLOOD COUNT 15.7 K/uL (4.8-10.8)
[2016-10-12 14:48] LABS: NEUTROPHIL 86 % (50-75); TOTAL CELLS COUNTED 100
--- NOTE | 2016-10-12 14:52 | CP.PCM.PN ---
Subjective - Date & Time of Evaluation Date of Evaluation: 10/12/16 Time of Evaluation: 14:52 - Subjective Subjective: DISCUSSED PT'S DISPOSITION PLAN WITH DR. ALEXANDER IN PERSON DURING HIS ROUNDS. PT'S PACEMAKER IS TO BE INTERROGATED THIS EVENING. LIKELY D/C HOME TOMORROW PER DR. ALEXANDER. WALL WASHER TO F/U WITH HIM TOMORROW MORNING. DR. MINAYA MADE AWARE OF PLAN AND OK. NO FURTHER ORDERS AT THIS TIME. Objective - Vital Signs/Intake and Output Vital Signs (last 24 hours): Temp Pulse Resp BP Pulse Ox 97.7 F 71 20 148/80 96 10/12/16 08:02 10/12/16 08:02 10/12/16 08:02 10/12/16 08:02 10/12/16 08:02 - Medications Medications: Current Medications Alprazolam (Xanax) 0.25 mg PO DAILY [facility] Stop: 10/15/16 10:01 Last Admin: 10/12/16 09:29 Dose: 0.25 mg Amlodipine Besylate (Norvasc) 10 mg PO DAILY [facility] Last Admin: 10/12/16 09:29 Dose: 10 mg Gabapentin (Neurontin) 600 mg PO TID [facility] Last Admin: 10/12/16 14:01 Dose: 600 mg Home Med (Patient's Own Medication) 1 tab PO BID [facility] Last Admin: 10/12/16 09:29 Dose: 1 tab Home Med (Patient's Own Medication) 1 tab PO DAILY PRN PRN Reason: Pain, severe (8-10) Hydromorphone HCl (Dilaudid) 0.5 mg IVP Q6H PRN PRN Reason: Pain, moderate (4-7) Last Admin: 10/11/16 23:54 Dose: 0.5 mg Cefazolin Sodium/Dextrose (Ancef Iv 1 Gm Duplex) 1 gm in 50 mls @ 100 mls/hr IVPB Q8H [facility] Last Admin: 10/12/16 07:03 Dose: 100 mls/hr Isosorbide Mononitrate (Imdur) 30 mg PO DAILY [facility] Last Admin: 10/12/16 09:29 Dose: 30 mg Losartan Potassium (Cozaar) 25 mg PO BID [facility] Last Admin: 10/12/16 09:29 Dose: 25 mg Metoprolol Succinate (Toprol Xl) 25 mg PO DAILY [facility] Last Admin: 10/12/16 09:29 Dose: 25 mg Montelukast Sodium (Singulair) 10 mg PO HS [facility] Last Admin: 10/11/16 21:07 Dose: 10 mg Tramadol HCl (Ultram) 50 mg PO Q8 [facility] Last Admin: 10/12/16 14:01 Dose: 50 mg - Labs Labs: 10/12/16 13:54 10/11/16 13:00
--- NOTE | 2016-10-12 16:55 | CP.PCM.PN ---
<AKANKSHA HUSSEIN - Last Filed: 10/12/16 16:51> Subjective - Date & Time of Evaluation Date of Evaluation: 10/12/16 Time of Evaluation: 16:51 - Subjective Subjective: Akanksha Hussein, PGY1, Progress Note for Dr. La: Pt seen and examined at bedside. No acute events overnight. Pt c/o chronic LBP, better controlled with pain meds. Denies cp, diaphoresis, sob, n/v/d, abdominal pain. Objective - Vital Signs/Intake and Output Vital Signs (last 24 hours): Temp Pulse Resp BP Pulse Ox 97.4 F L 74 20 140/73 95 10/12/16 15:58 10/12/16 15:58 10/12/16 15:58 10/12/16 15:58 10/12/16 15:58 - Medications Medications: Current Medications Alprazolam (Xanax) 0.25 mg PO DAILY [facility] Stop: 10/15/16 10:01 Last Admin: 10/12/16 09:29 Dose: 0.25 mg Amlodipine Besylate (Norvasc) 10 mg PO DAILY [facility] Last Admin: 10/12/16 09:29 Dose: 10 mg Gabapentin (Neurontin) 600 mg PO TID [facility] Last Admin: 10/12/16 14:01 Dose: 600 mg Home Med (Patient's Own Medication) 1 tab PO BID [facility] Last Admin: 10/12/16 09:29 Dose: 1 tab Home Med (Patient's Own Medication) 1 tab PO DAILY PRN PRN Reason: Pain, severe (8-10) Hydromorphone HCl (Dilaudid) 0.5 mg IVP Q6H PRN PRN Reason: Pain, moderate (4-7) Last Admin: 10/11/16 23:54 Dose: 0.5 mg Cefazolin Sodium/Dextrose (Ancef Iv 1 Gm Duplex) 1 gm in 50 mls @ 100 mls/hr IVPB Q8H [facility] Last Admin: 10/12/16 16:19 Dose: 100 mls/hr Isosorbide Mononitrate (Imdur) 30 mg PO DAILY [facility] Last Admin: 10/12/16 09:29 Dose: 30 mg Losartan Potassium (Cozaar) 25 mg PO BID [facility] Last Admin: 10/12/16 09:29 Dose: 25 mg Metoprolol Succinate (Toprol Xl) 25 mg PO DAILY [facility] Last Admin: 10/12/16 09:29 Dose: 25 mg Montelukast Sodium (Singulair) 10 mg PO HS [facility] Last Admin: 10/11/16 21:07 Dose: 10 mg Tramadol HCl (Ultram) 50 mg PO Q8 [facility] Last Admin: 10/12/16 14:01 Dose: 50 mg - Labs Labs: 10/12/16 13:54 10/11/16 13:00 - Constitutional Appears: No Acute Distress - Head Exam Head Exam: ATRAUMATIC, NORMOCEPHALIC - Eye Exam Eye Exam: PERRL - ENT Exam ENT Exam: Mucous Membranes Moist - Respiratory Exam Respiratory Exam: Clear to Ausculation Bilateral Additional comments: L sided pacemaker site has a hematoma, covered in dressing, L arm in sling. - Cardiovascular Exam Cardiovascular Exam: +S1, +S2. absent: Murmur Additional comments: paced - GI/Abdominal Exam GI & Abdominal Exam: Soft, Normal Bowel Sounds. absent: Tenderness - Neurological Exam Neurological Exam: Alert, Awake, Oriented x3 - Psychiatric Exam Psychiatric exam: Normal Mood - Skin Skin Exam: Dry, Warm Assessment and Plan - Assessment and Plan (Free Text) Assessment: 86F with PMH afib (rate controlled on toprol, no AC), HTN, chronic LBP, admitted for bradycardia. Pt is s/p pacemaker insertion 10/11, developed a hematoma at the site, H/H stable. Plan: Afib with SVR: - Pt has a history of afib, HTN. - On home Metoprolol succinate 50 mg PO daily and HCTZ 25 mg Po daily, no anticoagulation as pt has frequent falls. - Pt found in HR mid 30's by PT at home. - In ED, HR 43-52-60, EKG shows afib with SVR, and RBBB (unchanged from previous EKG 08/22/16). - Pt hypertensive in ED, BP 205/116. - Pt started on amlodipine 10 mg PO dialy, losartan 25 mg PO BID, isosorbide mononitrate 30mg PO daily, and Metoprolol 25 mg PO daily for rate control of afib, hold for HR<60 or SBP<120 - Pt s/p pacemaker insertion 10/11, developed a hematoma, Hgb 12.6->11.6 today. HR well controlled in 70-80's. - Pt stable Chronic LBP: - Pain control, c/w tramadol Discussed with Dr. La. <Eugenia La - Last Filed: 10/24/16 06:14> Objective - Vital Signs/Intake and Output Vital Signs (last 24 hours): Temp Pulse Resp BP Pulse Ox 97.6 F 69 20 105/70 97 10/14/16 07:07 10/14/16 07:07 10/14/16 07:07 10/14/16 07:07 10/14/16 07:07 - Labs Labs: 10/14/16 06:03 10/13/16 07:00 Assessment and Plan (1) Bradycardia Status: Acute Attending/Attestation - Attestation I have personally seen and examined this patient.: Yes I have fully participated in the care of the patient.: Yes I have reviewed all pertinent clinical information, including history, physical exam and plan: Yes Notes (Text): 10/24/16 06:14 hematoma controlled stable pt feeling better
--- NOTE | 2016-10-12 21:11 | CP.PCM.PN ---
Subjective - Date & Time of Evaluation Date of Evaluation: 10/12/16 Time of Evaluation: 21:10 - Subjective Subjective: In today feeling better. No pain. But the pain in the lower back in the legs noted. On dilated. Labs reviewed Elevated WBC Vital signs reviewed No neck vein distention noted Chest good air entry bilaterally, no wheezing or rales noted CVS regular heart sound, no murmur noted Abdomen soft, nontender. 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 Status post a pacemaker. Will closely monitor the patient. Elevated WBC repeat the CBC on antibiotic Objective - Vital Signs/Intake and Output Vital Signs (last 24 hours): Temp Pulse Resp BP Pulse Ox 97.4 F L 74 20 140/73 95 10/12/16 15:58 10/12/16 15:58 10/12/16 15:58 10/12/16 15:58 10/12/16 15:58 - Medications Medications: Current Medications Alprazolam (Xanax) 0.25 mg PO DAILY [facility] Stop: 10/15/16 10:01 Last Admin: 10/12/16 09:29 Dose: 0.25 mg Amlodipine Besylate (Norvasc) 10 mg PO DAILY [facility] Last Admin: 10/12/16 09:29 Dose: 10 mg Gabapentin (Neurontin) 600 mg PO TID [facility] Last Admin: 10/12/16 18:38 Dose: 600 mg Home Med (Patient's Own Medication) 1 tab PO BID [facility] Last Admin: 10/12/16 18:39 Dose: 1 tab Home Med (Patient's Own Medication) 1 tab PO DAILY PRN PRN Reason: Pain, severe (8-10) Hydromorphone HCl (Dilaudid) 0.5 mg IVP Q6H PRN PRN Reason: Pain, moderate (4-7) Last Admin: 10/11/16 23:54 Dose: 0.5 mg Cefazolin Sodium/Dextrose (Ancef Iv 1 Gm Duplex) 1 gm in 50 mls @ 100 mls/hr IVPB Q8H [facility] Last Admin: 10/12/16 16:19 Dose: 100 mls/hr Isosorbide Mononitrate (Imdur) 30 mg PO DAILY [facility] Last Admin: 10/12/16 09:29 Dose: 30 mg Losartan Potassium (Cozaar) 25 mg PO BID [facility] Last Admin: 10/12/16 18:38 Dose: 25 mg Metoprolol Succinate (Toprol Xl) 25 mg PO DAILY [facility] Last Admin: 10/12/16 09:29 Dose: 25 mg Montelukast Sodium (Singulair) 10 mg PO HS [facility] Last Admin: 10/11/16 21:07 Dose: 10 mg Tramadol HCl (Ultram) 50 mg PO Q8 [facility] Last Admin: 10/12/16 14:01 Dose: 50 mg - Labs Labs: 10/12/16 13:54 10/11/16 13:00
[2016-10-12] MEDS: HYDROmorphone 0.5 mg/0.5 ml ISec IVP PRN (23:47)
[2016-10-13] MEDS: ceFAZolin IV 1 gm in Dextrose 1 GM/50 ML BAG IVPB SCH ×2 (07:06→17:06)
[2016-10-13 07:32] LABS: BASO % 0.1 % (0.0-2.0); EOS # 0.1 K/uL (0.0-0.7); EOS % 0.5 % (0.0-4.0); HEMATOCRIT 34.3 % (34.0-47.0); LYMPH # 2.4 K/uL (1.0-4.3); LYMPH % 16.8 % (20.0-40.0); MEAN CELL VOLUME 78.6 fL (81.0-99.0); MEAN CORPUSCULAR HEMOGLOBIN 24.8 pg (27.0-31.0); MEAN CORPUSCULAR HGB CONC 31.6 g/dL (33.0-37.0); MEAN PLATELET VOLUME 8.3 fL (7.2-11.7); MONO # 1.3 K/uL (0.0-0.8); MONO % 9.3 % (0.0-10.0); RED CELL DISTRIBUTION WIDTH 14.3 % (11.5-14.5); WHITE BLOOD COUNT 14.2 K/uL (4.8-10.8)
[2016-10-13 07:40] LABS: CHLORIDE 99 mmol/L (98-107); SODIUM 133 mmol/L (132-148)
[2016-10-13 07:41] LABS: POTASSIUM 4.5 mmol/L (3.6-5.2)
[2016-10-13 07:43] LABS: ALB/GLOB RATIO 1.3 (1.0-2.1); ALKALINE PHOSPHATASE 44 U/L (38-126); ALT/SGPT 32 U/L (9-52); AST/SGOT 15 U/L (14-36); BILIRUBIN,TOTAL 0.7 mg/dL (0.2-1.3); BLOOD UREA NITROGEN 35 mg/dL (7-17); CARBON DIOXIDE 26 mmol/L (22-30); GFR AFRICAN-AMERICAN > 60; GLUCOSE,RANDOM 83 mg/dL (65-105); TOTAL PROTEIN 5.2 g/dL (6.3-8.3)
[2016-10-13 07:44] LABS: CALCIUM 8.2 mg/dl (8.6-10.4)
[2016-10-13] MEDS: Metoprolol Succinate 25 mg XL Tab PO SCH (11:08)
[2016-10-13] MEDS: AMITIZA 8 MCG PO SCH ×2 (11:09→17:59)
[2016-10-14] MEDS: ceFAZolin IV 1 gm in Dextrose 1 GM/50 ML BAG IVPB SCH ×2 (00:02→07:01)
[2016-10-14] MEDS: HYDROmorphone 0.5 mg/0.5 ml ISec IVP PRN (02:40)
[2016-10-14 06:13] LABS: BASO % 0.2 % (0.0-2.0); EOS # 0.3 K/uL (0.0-0.7); EOS % 2.2 % (0.0-4.0); LYMPH # 2.6 K/uL (1.0-4.3); LYMPH % 18.9 % (20.0-40.0); MEAN CELL VOLUME 79.5 fL (81.0-99.0); MEAN CORPUSCULAR HEMOGLOBIN 24.6 pg (27.0-31.0); MEAN CORPUSCULAR HGB CONC 30.9 g/dL (33.0-37.0); MEAN PLATELET VOLUME 8.4 fL (7.2-11.7); MONO # 1.1 K/uL (0.0-0.8); MONO % 7.8 % (0.0-10.0); RED CELL DISTRIBUTION WIDTH 14.8 % (11.5-14.5); WHITE BLOOD COUNT 13.8 K/uL (4.8-10.8)
--- NOTE | 2016-10-14 07:00 | CP.PCM.PN ---
Subjective - Date & Time of Evaluation Date of Evaluation: 10/13/16 Time of Evaluation: 06:59 - Subjective Subjective: is feeling okay. No chest pain. Status post pacemaker. Vital signs reviewed No neck vein distention noted Chest good air entry bilaterally, no wheezing or rales noted CVS regular heart sound, no murmur noted Abdomen soft, nontender. 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 Given the elevated WBC will get the cardiology clearance before discharge. Possibly will hold the patient and will discharge in the morning Objective - Vital Signs/Intake and Output Vital Signs (last 24 hours): Temp Pulse Resp BP Pulse Ox 98.1 F 70 20 99/64 L 96 10/13/16 23:05 10/14/16 05:08 10/13/16 23:05 10/13/16 23:05 10/13/16 23:05 Intake and Output: 10/13/16 10/14/16 18:59 06:59 Intake Total 450 Balance 450 - Medications Medications: Current Medications Alprazolam (Xanax) 0.25 mg PO DAILY [facility] Stop: 10/15/16 10:01 Last Admin: 10/13/16 11:14 Dose: 0.25 mg Amlodipine Besylate (Norvasc) 10 mg PO DAILY [facility] Last Admin: 10/13/16 11:08 Dose: 10 mg Gabapentin (Neurontin) 600 mg PO TID [facility] Last Admin: 10/13/16 17:58 Dose: 600 mg Home Med (Patient's Own Medication) 1 tab PO BID [facility] Last Admin: 10/13/16 17:59 Dose: 1 tab Home Med (Patient's Own Medication) 1 tab PO DAILY PRN PRN Reason: Pain, severe (8-10) Hydromorphone HCl (Dilaudid) 0.5 mg IVP Q6H PRN PRN Reason: Pain, moderate (4-7) Last Admin: 10/14/16 02:40 Dose: 0.5 mg Cefazolin Sodium/Dextrose (Ancef Iv 1 Gm Duplex) 1 gm in 50 mls @ 100 mls/hr IVPB Q8H [facility] Last Admin: 10/14/16 00:02 Dose: 100 mls/hr Isosorbide Mononitrate (Imdur) 30 mg PO DAILY [facility] Last Admin: 10/13/16 11:08 Dose: 30 mg Losartan Potassium (Cozaar) 25 mg PO BID [facility] Last Admin: 10/13/16 17:07 Dose: Not Given Metoprolol Succinate (Toprol Xl) 25 mg PO DAILY [facility] Last Admin: 10/13/16 11:08 Dose: 25 mg Montelukast Sodium (Singulair) 10 mg PO HS [facility] Last Admin: 10/13/16 21:30 Dose: 10 mg Tramadol HCl (Ultram) 50 mg PO Q8 [facility] Last Admin: 10/14/16 06:01 Dose: 50 mg - Labs Labs: 10/14/16 06:03 10/13/16 07:00
[2016-10-14 08:09] VITALS: BP 105/70; PULSE 69; TEMP 97.6; O2SAT 97
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
[2016-10-14] MEDS: Metoprolol Succinate 25 mg XL Tab PO SCH (09:39)
[2016-10-14] MEDS: AMITIZA 8 MCG PO SCH (09:43)
--- NOTE | 2016-10-14 09:57 | CP.PCM.PN ---
<AKANKSHA HUSSEIN - Last Filed: 10/14/16 09:54> Subjective - Date & Time of Evaluation Date of Evaluation: 10/14/16 Time of Evaluation: 09:54 - Subjective Subjective: Akanksha Hussein, PGY1, Progress Note for Dr. La: Pt seen and examined at bedside. No acute events overnight. Pt complains of chronic back pain, controlled with dilaudid. Denies bleeding at pacemaker site, cp, diaphoresis, sob, n/v/d, abdominal pain. Objective - Vital Signs/Intake and Output Vital Signs (last 24 hours): Temp Pulse Resp BP Pulse Ox 97.6 F 69 20 105/70 97 10/14/16 07:07 10/14/16 07:07 10/14/16 07:07 10/14/16 07:07 10/14/16 07:07 - Medications Medications: Current Medications Alprazolam (Xanax) 0.25 mg PO DAILY [facility] Stop: 10/15/16 10:01 Last Admin: 10/14/16 09:40 Dose: 0.25 mg Amlodipine Besylate (Norvasc) 10 mg PO DAILY [facility] Last Admin: 10/14/16 09:40 Dose: 10 mg Gabapentin (Neurontin) 600 mg PO TID [facility] Last Admin: 10/14/16 09:46 Dose: 600 mg Home Med (Patient's Own Medication) 1 tab PO BID [facility] Last Admin: 10/14/16 09:43 Dose: 1 tab Home Med (Patient's Own Medication) 1 tab PO DAILY PRN PRN Reason: Pain, severe (8-10) Last Admin: 10/14/16 09:43 Dose: 1 tab Hydromorphone HCl (Dilaudid) 0.5 mg IVP Q6H PRN PRN Reason: Pain, moderate (4-7) Last Admin: 10/14/16 02:40 Dose: 0.5 mg Cefazolin Sodium/Dextrose (Ancef Iv 1 Gm Duplex) 1 gm in 50 mls @ 100 mls/hr IVPB Q8H [facility] Last Admin: 10/14/16 07:01 Dose: 100 mls/hr Isosorbide Mononitrate (Imdur) 30 mg PO DAILY [facility] Last Admin: 10/14/16 09:40 Dose: 30 mg Losartan Potassium (Cozaar) 25 mg PO BID [facility] Last Admin: 10/14/16 09:39 Dose: 25 mg Metoprolol Succinate (Toprol Xl) 25 mg PO DAILY [facility] Last Admin: 10/14/16 09:39 Dose: 25 mg Montelukast Sodium (Singulair) 10 mg PO HS [facility] Last Admin: 10/13/16 21:30 Dose: 10 mg Tramadol HCl (Ultram) 50 mg PO Q8 [facility] Last Admin: 10/14/16 06:01 Dose: 50 mg - Labs Labs: 10/14/16 06:03 10/13/16 07:00 - Constitutional Appears: No Acute Distress - Head Exam Head Exam: ATRAUMATIC, NORMOCEPHALIC - Eye Exam Eye Exam: PERRL - ENT Exam ENT Exam: Mucous Membranes Moist - Respiratory Exam Respiratory Exam: Clear to Ausculation Bilateral - Cardiovascular Exam Cardiovascular Exam: REGULAR RHYTHM Additional comments: paced - GI/Abdominal Exam GI & Abdominal Exam: Soft, Normal Bowel Sounds. absent: Tenderness - Extremities Exam Extremities Exam: absent: Calf Tenderness, Pedal Edema - Neurological Exam Neurological Exam: Alert, Awake, Oriented x3 - Psychiatric Exam Psychiatric exam: Normal Mood - Skin Skin Exam: Warm Additional comments: Removed dressing at pacemaker site, minimal bleeding, c/d/i. hematoma noted, improving. Assessment and Plan - Assessment and Plan (Free Text) Assessment: 86F with PMH afib (rate controlled on toprol, no AC), HTN, chronic LBP, admitted for bradycardia. Pt is s/p pacemaker insertion 10/11, developed a hematoma at the site, H/H stable, leukocytosis improving. Changed pacemaker site dressing today, minimal bleeding, c/d/i. Can discharge and f/u outpatient with Dr. La within 1 week. Plan: Afib with SVR: - Pt has a history of afib, HTN. - On home Metoprolol succinate 50 mg PO daily and HCTZ 25 mg Po daily, no anticoagulation as pt has frequent falls. - Pt found in HR mid 30's by PT at home. - In ED, HR 43-52-60, EKG shows afib with SVR, and RBBB (unchanged from previous EKG 08/22/16). - Pt hypertensive in ED, BP 205/116. - Pt started on amlodipine 10 mg PO dialy, losartan 25 mg PO BID, isosorbide mononitrate 30mg PO daily, and Metoprolol 25 mg PO daily for rate control of afib, hold for HR<60 or SBP<120 - Pt s/p pacemaker insertion 10/11, developed a hematoma, Hgb 12.6->11.6 ->10.5 today. HR well controlled in 60-70's, paced. - Afebrile, leukocytosis imrpoving 14.2->13.8. - Pacemaker site dressing changed, hematoma improving, dressing c/d/i, can f/u outpatient with Dr. La in 1 week Chronic LBP: - Pain control, c/w tramadol Discussed with Dr. La. Akanksha Hussein, PGY1 <Eugenia La A - Last Filed: 10/24/16 06:13> Objective - Vital Signs/Intake and Output Vital Signs (last 24 hours): Temp Pulse Resp BP Pulse Ox 97.6 F 69 20 105/70 97 10/14/16 07:07 10/14/16 07:07 10/14/16 07:07 10/14/16 07:07 10/14/16 07:07 - Labs Labs: 10/14/16 06:03 10/13/16 07:00 Assessment and Plan (1) Bradycardia Status: Acute Attending/Attestation - Attestation I have personally seen and examined this patient.: Yes I have fully participated in the care of the patient.: Yes I have reviewed all pertinent clinical information, including history, physical exam and plan: Yes Notes (Text): 10/24/16 06:13 ppm stable d/c with follow up
--- NOTE | 2016-10-19 20:01 | CARD ---
APPROVED REPORT EKG Measurement Heart [id number] <Conclusion> Atrial fibrillation with slow ventricular response Right bundle branch block Abnormal ECG
--- NOTE | 2016-10-25 10:34 | OP ---
DATE OF SERVICE: 10/11/2016 Patient is an 86-year-old female. Patient was brought to the OR holding area where consent was obtained, IV fluids started. Son was present. Antibiotics were also started. Patient signed the consent. She presented to the OR for a single-chamber permanent pacemaker. Rep was present. Anesthesia present and all were present. Patient was brought to the OR, draped and prepped in sterile fashion. Anesthesia started by Anesthesia. Patient had access with our specialist, Dr. Desouza flow to the RV lead, to the RV apex successfully under fluoroscopy. The RV lead successfully single-chamber permanent pacemaker was connected to the RV lead. Successfully the pocket was closed in 2-0, 3-0, 4-0 fashion. Patient tolerated the procedure well and was brought back to the holding area and eventually received her x-ray there for a documentation of placement and x-ray showed appropriate placement. Patient tolerated the procedure well. Successful with the patient's single chamber permanent pacemaker on 10/11/2016. Eugenia La MD
--- NOTE | 2016-10-26 11:31 | OP ---
DATE OF SERVICE: 10/11/2016 Patient is an 86-year-old female. Patient was brought to the OR holding area where consent was obtained, IV fluids started. Son was present. Antibiotics were also started. Patient signed the consent. She presented to the OR for a single-chamber Ras permanent pacemaker. Rep was present. Anesthesia present and all were present. Patient was brought to the OR, draped and prepped in sterile fashion. Anesthesia started by Anesthesia. Patient had access with our specialist, Dr. Desouza I then floated leade RV lead, to the RV apex successfully under fluoroscopy. The RV lead successfully tested and fized single-chamber permanent pacemaker was connected to the RV lead. Successfully formation of the pocket and was closed in 2-0, 3-0, 4-0 fashion. Patient tolerated the procedure well and was brought back to the holding area and eventually received her x-ray there for a documentation of placement and x-ray showed appropriate placement. Patient tolerated the procedure well. Successful with the patient's single chamber permanent pacemaker on 10/11/2016. Eugenia La MD MTDLorena
== END 2016-10-14 11:23 | disposition home or self-care (01) | DRG 310 ==
LOC: C.ER 17:57 → C.9E 20:12 → C.6T 20:58 → OBSVTOIN 10-09 15:15 → C.6T 10-10 06:37
PROVIDERS: ADMIT Internal Medicine; ATTEND Internal Medicine
PROC: 02HV33Z Insertion of Infusion Device into Superior Vena Cava, Percutaneous Approach (ICD-10-PCS; principal; 2016-10-11 16:00)
DX: I49.5 Sick sinus syndrome (principal); I48.91 Unspecified atrial fibrillation; I45.10 Unspecified right bundle-branch block; I10 Essential (primary) hypertension; Z68.39 Body mass index [BMI] 39.0-39.9, adult; E66.9 Obesity, unspecified; M48.07 Spinal stenosis, lumbosacral region; Z85.038 Personal history of other malignant neoplasm of large intestine; Z91.81 History of falling; Z93.3 Colostomy status; Z95.0 Presence of cardiac pacemaker; D72.829 Elevated white blood cell count, unspecified